=== PATIENT | female | born 1970 | race Caucasian/White ===

== ENCOUNTER 2019-04-02 18:06 | Emergency (ER) | payer MEDICAID, SELFPAY ==
[2019-04-02 18:06] VITALS: BP 154/97; PULSE 83; RESP 16; TEMP 36.3; O2SAT 99; BMI 21.0
--- NOTE | 2019-04-02 18:10 | EKG12_ITS ---
Test Reason : CP Blood Pressure : / mmHG Vent. Rate : 079 BPM Atrial Rate : 079 BPM P-R Int : 110 ms QRS Dur : 080 ms QT Int : 384 ms P-R-T Axes : -33 070 -15 degrees QTc Int : 440 ms Unusual P axis, possible ectopic atrial rhythm Nonspecific T wave abnormality Abnormal ECG Confirmed by KIAH RICHARD ([id number]), news assignment editor NICOLASA AZAR ([id number]) on 04/03/2019 2:32:20 PM Referred By: GERI Confirmed By:KIAH RICHARD
--- NOTE | 2019-04-02 18:15 | RAD_ITS ---
STUDY: X-RAY CHEST REASON FOR EXAM: Female, 48 years old. Chest pain TECHNIQUE: Single frontal view of the chest. COMPARISON: None. FINDINGS: The lungs are clear and expanded. There is no demonstrated pleural abnormality. Normal size heart. Normal mediastinum and eldon. Normal visualized pulmonary arteries. Normal visualized aortic arch and descending thoracic aorta. Breast implants. Normal visualized thoracic spine. Normal visualized ribs, clavicles, and shoulders. There is no demonstrated abnormality of the visualized soft tissue structures of the upper abdomen. RAD/Chest 1 View (Portable) IMPRESSION: No acute pulmonary findings. Electronically Signed: Brian Sneed MD at 18:36 EDT Tel , Service support ,
--- NOTE | 2019-04-02 18:24 | NURSING ---
NO OLD EKGS
[2019-04-02 18:38] VITALS: BP 142/86; PULSE 80; RESP 23; O2SAT 100
[2019-04-02 18:47] LABS: Absolute Lymphocyte Count 1.87 X10^3/uL (0.83-4.51); Absolute Neutrophil Count 4.5 X10^3/uL (2.0-7.7); Basophil# 0.07 X10^3/uL; Eosinophil# 0.31 X10^3/uL; Eosinophils% 4.2 % (0-5); Hemoglobin 12.8 g/dL (12.0-15.0); Lymphocyte # 1.87 X10^3/ul (4.0); Lymphocyte % 25.4 % (19-41); Mean Corp Hgb Conc 33.7 g/dL (32-36); Mean Corpuscular Hgb 29.6 pg (27.0-32.0); Mean Platelet Vol. 10.3 fl (6.2-12.0); Monocyte# 0.64 X10^3/uL; Monocyte% 8.7 % (0-10); NRBC Flagged by Analyzer 0 % (0-5); Neutrophil # 4.45 X10^3/uL (2.7-7.7); Neutrophil % 60.4 % (47-70); Platelet Count 223 K/mm3 (150-450); RBC Distribution Width CV 12.1 % (11.6-14.6); RBC Distribution Width SD 39.2 fl (35.1-43.9); Red Blood Count 4.32 M/mm3 (4.2-5.4); White Blood Count 7.4 K/mm3 (4.4-11.0)
[2019-04-02 19:03] VITALS: RESP 17
[2019-04-02 19:04] LABS: Anion Gap 7 (5-15); BUN 13 mg/dL (7-18); BUN/Creat Ratio 17.7 RATIO (10-20); Chloride 107 mmol/L (98-107); Creatinine, Serum 0.73 mg/dL (0.55-1.02); EST Glomerular Filtration Rate 90 mL/min (>60); Est Glom Filt Rate - Afr Amer 108 mL/min (>60); Estimated Creatinine Clearance 74.54 ml/min; Glucose 93 mg/dL (74-106); Potassium 3.2 mmol/L (3.5-5.1); Sodium Level 139 mmol/L (136-145)
[2019-04-02 19:45] LABS: D-Dimer Quantitative (DVT/PE) 0.46 FEU/ug/m (0.27-0.49)
[2019-04-02 20:02] VITALS: BP 123/81; PULSE 71; RESP 15; O2SAT 99
--- NOTE | 2019-04-02 20:30 | ED.DCSUM_ITS ---
- ER Visit Summary Date of Service: 04/02/19 Chief Complaint: Chest pain History of Present Illness: The patient is a 48 F who presents with chest pain that has been intermittent over the last 4 days. Patient states the pain is gradually gotten worse. Patient describes the pain as dull but sharp at times. Patient states the pain is over the left chest. Patient states nothing makes it better or worse. Patient denies any nausea or vomiting. Patient denies any diaphoresis. Patient denies any shortness of breath, cough, or fevers. Patient denies any lightheadedness or palpitations. Patient's only cardiac risk factor is family history of coronary artery disease at a young age. Patient does admit to recent travel to [place]. Physical Examination: Vital signs are stable. Patient is afebrile. Patient is in no acute distress. Oral mucosa is pink and moist. Neck is supple. Trachea is midline. There is no JVD noted. Heart was regular rate and rhythm. Lungs are clear and equal bilaterally. There is no tenderness with palpation over the chest wall. Abdomen is soft. Bowel sounds are normal. There is no tenderness. Cranial nerves II through XII are intact. There are no focal motor or sensory deficits noted. Test Results: EKG showed normal sinus rhythm with a rate of 79. Nonspecific ST- T wave changes but no acute abnormality. Portable chest x-ray does not show any acute cardiopulmonary process. CBC and basic metabolic profile were essentially within normal limits. Troponin was normal. D-dimer was normal. Emergency Department Course and Treatment: Patient was feeling better on reevaluation. Patient was advised that she is at low risk for acute cardiac event. Patient has a HEART score of 3. Patient was instructed to follow-up with her primary care physician in 3 to 5 days. Patient understood and was agreeable with the plan. All questions were answered. Disposition: Discharge home Impression: Chest pain of uncertain etiology This note was generated with [employer] dictation software. It may contain incorrect words, spelling, and punctuation that were not noted in review of the chart prior to signing ED Disposition - Plan for ED Patient: Disposition: Home or Assisted Living Diagnosis: Chest pain of uncertain etiology Instructions: CHEST PAIN, Uncertain Cause Referrals: Dell Pickard DO [Primary Care Provider] - 3-5 Days
[2019-04-02 20:36] VITALS: BP 130/79; PULSE 72; RESP 14; O2SAT 98
== END 2019-04-02 20:40 | disposition home or self-care (01) ==
PROVIDERS: Emergency Provider Emergency Medicine; Family Provider Student in an Organized Health Care Education/Training Program; PCP Student in an Organized Health Care Education/Training Program
DX: R07.9 Chest pain, unspecified (principal); Z82.49 Family history of ischemic heart disease and other diseases of the circulatory system
CPT/HCPCS: 71045; 80048; 84484; 85025; 85379; 93005; 99284; A4216

== ENCOUNTER 2025-06-22 09:29 | Emergency (ER) | payer MEDICAID, SELFPAY ==
[2025-06-22 09:31] VITALS: PULSE 98; RESP 18; TEMP 36.4; O2SAT 100; BMI 20.1
--- NOTE | 2025-06-22 09:59 | EX.ED.DYSGE1 ---
HPI History of Present Illness Chief Complaint: Palpitations Detail of Chief Complaint: Palpitations and fast heart rate Informant: patient Onset/Context/Timing Onset: Today and Hours Context: Sudden Onset Timing: Intermittent and Lasts (Approximately 45 minutes) Quality: Fast heart rate and palpitations Location: Chest Current Severity: Gone Maximum Severity: Moderate Worsened by: Nothing Relieved by: Nothing Associated Symptoms Associated Symptoms: Tremors Narrative Narrative: Patient is a pleasant 55-year-old woman who presents because of palpitations fast heart rate. She went to urgent care. Urgent care recommended she come to the emergency department for evaluation. Patient has no known cardiac disease. She has no known pulmonary disease. She denies history of VTE and has no risk factors for VTE. She denies leg pain, swelling discoloration. She denies fever, chills night sweats. She denies weight gain or weight loss. She denies headache, visual, ocular auditory symptoms. She denied any chest pressure, tightness or heaviness when she had the palpitations. She states she checked her pulse and it was rapid. She did not have shortness of breath, diaphoresis, nausea or lightheadedness when her heart was fast and palpating. She does drink caffeinated beverages. She had no coffee this morning. She has never had this before. She denies abdominal pain, history of black or maroon-colored stool. She denies heat or cold intolerance. She has had tremors. There is no known history of thyroid disease. Review of prior record indicates she has not had her TSH assessed in the past. Prior similar symptoms: No Recent Illness/Hospitalization: No [facility] Medical History Trigeminal neuralgia Home Medications ?Medication ?Instructions ?Recorded ?Last Taken ?Type baclofen 10 mg tablet 10 mg PO Q8H PRN pain 06/22/25 06/19/25 History estradiol 0.025 mg/24 hr 1 patch topical .COMPLEX 06/22/25 06/19/25 History semiweekly transdermal patch oxcarbazepine 150 mg tablet 450 mg PO BID 06/22/25 06/22/25 History progesterone micronized 100 mg 200 mg PO QHS 06/22/25 06/21/25 History capsule tramadol 50 mg tablet 50 mg PO DAILY PRN pain 06/22/25 06/19/25 History Allergy/AdvReac Type Severity Reaction Status Date / Time No Known Allergies Allergy Verified 04/02/19 18:08 Surgical History History of bunionectomy of right great toe Social History Smoking Status: Never smoker ROS ROS ED Constitutional Constitutional ED: Denies chills, fever(s), subjective, sweats or weight loss Eyes Eyes: Denies blurry vision or change in vision ENT ENT ED: Denies ear pain, rhinorrhea or sore throat Cardiovascular Cardiovascular: Reports palpitations and racing heartbeat; Denies chest pain, orthopnea or paroxysmal nocturnal dyspnea Respiratory/Chest Respiratory/Chest: Denies cough, dyspnea, dyspnea on exertion, orthopnea or paroxysmal nocturnal dyspnea Gastrointestinal Gastrointestinal: Denies abdominal pain, nausea or vomiting Musculoskeletal Musculoskeletal: Denies arthralgias, back pain or myalgias Neurologic Neurologic: Denies headache(s), paresthesias or weakness Psychiatric Psychiatric: Reports anxiety; Denies depression or suicidal ideation Endocrine Endocrinology: Denies cold intolerance or heat intolerance Hematologic/Lymphatic Hematologic/Lymphatic: Reports systems reviewed and no addt'l complaints, except as documented EXAM Physical Exam Const Vital Signs: 06/22/25 09:31 06/22/25 10:30 06/22/25 11:00 Temperature 97.6 F L Temperature Source Oral Pulse Rate 98 70 68 Respiratory Rate 18 16 18 Blood Pressure 120/80 118/70 Blood Pressure Mean 93 86 Pulse Ox 100 99 99 Oxygen Delivery Method Room Air 06/22/25 12:00 06/22/25 13:00 Temperature Temperature Source Pulse Rate 80 90 Respiratory Rate 18 16 Blood Pressure 120/78 116/76 Blood Pressure Mean 92 89 Pulse Ox 98 100 Oxygen Delivery Method Positive well nourished and well developed General Appearance ED: well developed and NAD; Negative for cyanotic, diaphoretic or pallor HEENT Reports moist mucous membranes HEENT Narrative: HEENT exam is grossly unremarkable. Eyes PERRL and EOMs intact bilaterally General Eye ED: Negative for pale conjunctiva or scleral icterus Neck no lymphadenopathy, supple and no JVD Resp normal respiratory effort and clear to auscultation bilaterally Cardio regular rate, regular rhythm, S1 normal heart sound, S2 normal heart sound and no murmurs GI normal to inspection, nondistended, normoactive bowel sounds, non-tender, non-distended and no masses; Negative for hepatosplenomegaly Extremity normal to inspection Neuro oriented x3, CN's II-XII intact bilaterally and no sensory deficits noted Neuro Narrative: Deep tendon reflexes are 3-4+ upper and lower extremity and symmetric. There is no clonus at the ankles. Sensorium / Orientation: alert Psych Psych Narrative: Patient reports she is anxious. She does not appear anxious. Skin no rashes or lesions noted, no wounds and skin turgor normal General Skin Exam: Negative for jaundice or pallor MDM MDM MDM Narrative Medical decision making narrative: Will obtain EKG to see if there is any evidence for preexcitation syndrome i.e. WPW, [place] syndrome etc. History is not consistent with cardiac ischemia. Also need to consider thyroid disease. Since patient not had any caffeinated beverages today doubt that to be the cause. Clinically she does not appear anemic. CBC was obtained to assess white count. Basic metabolic panel to assess electrolytes. Because she has had a cough for 7 weeks chest x-ray was obtained. Lab Data Attestation: I reviewed the patient's lab results. Lab results narrative: White count elevated. This is nonspecific. H&H and indices are normal. Electrolyte panel is unremarkable. Glucose is 101 with normal CO2 and gap. TSH was normal. 1st and 2nd troponin were both less than 6. Labs: Laboratory Results - last 24 hr 06/22/25 06/22/25 06/22/25 09:57 10:00 12:11 WBC 14.6 H RBC 4.52 Hgb 13.4 Hct 38.9 MCV 86.1 MCH 29.6 MCHC 34.4 RDW Std Deviation 38.6 RDW Coeff of Kevin 12.3 Plt Count 288 MPV 9.2 Immature Gran % (Auto) 0.300 Neut % (Auto) 89.1 H Lymph % (Auto) 4.2 L Dent % (Auto) 5.5 Eos % (Auto) 0.5 Baso % (Auto) 0.4 Absolute Neuts (auto) 13.0 H Absolute Lymphs (auto) 0.61 L Nucleated RBC % 0 Sodium 132 L Potassium 3.9 Chloride 97 L Carbon Dioxide 23.8 Anion Gap 12 BUN 10 Creatinine 0.62 L Estim Creat Clear Calc 80.76 Est GFR (MDRD) Non-Af 105 BUN/Creatinine Ratio 15.4 Glucose 101 H Calcium 9.4 Troponin T High Sens < 6 Troponin T Hi Sens 2 Hr < 6 TSH 0.790 Radiography Chest X-Ray - ED: 2 View and Read by ED Physician (. Silhouette and size normal. Hilum is negative. Lung parenchyma is unremarkable. Osseous fractures with no acute process. Patient does have implants bilaterally.) Diagnostic Testing: Clinical Impression(s) from Imaging Studies Chest X-Ray 06/22/25 10:15 IMPRESSION: Negative chest Reading Location: [facility] EKG Initial EKG: Attestation: I personally reviewed and interpreted this EKG as follows: Interpretation: Sinus Rhythm (Rate is 94. There is evidence of atrial enlargement. There is some nonspecific changes noted inferiorly. If there is no old EKG will add troponin. NM interval is 132 ms. QRS duration 72 ms. QT duration 342 ms. Campbell is normal.) Treatment and Re-Evaluation :: Patient was informed of her results. Plans to follow-up with her doctor since this is never happened before and the rhythm/cause is unknown. Discharge Plan Triage Chief Complaint: Palpitations ED Provider: Geoff Landaverde Dx/Rx/DC Orders Clinical Impression: Palpitations, Rapid resting heart rate Instructions: ED Heart Palpitations Prescriptions: No Action oxcarbazepine 150 mg tablet 450 mg PO BID tramadol 50 mg tablet 50 mg PO DAILY PRN (Reason: pain) progesterone micronized 100 mg capsule 200 mg PO QHS estradiol 0.025 mg/24 hr patch semiweekly 1 patch topical .COMPLEX Rx Instructions: 1 patch topically TWICE WEEKLY; baclofen 10 mg tablet 10 mg PO Q8H PRN (Reason: pain) Primary Care Provider: Dell Pickard Referrals: Dell Pickard DO [Primary Care Provider, Medical] - 1 Week Print Language: Bruneian Disposition Disposition: Home, Self Care
--- OUTSIDE RECORDS SUMMARY | 2025-06-22 10:13 | XMS RPT_ITS | CCD ---
Author Organization [facility] Care Team Providers Care Packing Machine Pilot Can Router Name Role Phone DELL PICKARD DO Primary Care Physician Dell Pickard DO Primary Care Provider Dell Pickard DO Primary Care Provider Arevalo BIOMETRICS SPECIALIST.AUTHORIZATION REPMarcela Unavailable Ainsley BIOMETRICS SPECIALIST.AUTHORIZATION REPAi Unavailable Victor Hugo BIOMETRICS SPECIALIST.Gissell BOLANOS Unavailable GISSELL FONTENOT Attending Unavailable PICKARD, DELL L Primary Care Unavailable PICKARD, DELL L Primary Care Unavailable PICKARD, DELL L Referring Unavailable TAO, MERCEDES P Attending Unavailable TAO, MERCEDES P Referring Unavailable PICKARD, DELL L Primary Care Unavailable PICKARD, DELL L Referring Unavailable PICKARD, DELL L Primary Care Unavailable TAO, MERCEDES P Attending Unavailable TAO, MERCEDES P Referring Unavailable PICKARD, DELL L Primary Care Unavailable TAO, MERCEDES P Attending Unavailable TAO, MERCEDES P Referring Unavailable PICKARD, DELL L Primary Care Unavailable PICKARD, DELL L Primary Care Unavailable TAO, MERCEDES P Referring Unavailable TAO, MERCEDES P Attending Unavailable PICKARD, DELL L Primary Care Unavailable TONY FISH Referring Unavailable KELLY FONTENOTANDA VARSHA Referring Unavailable VANNA, STEPHON P Attending Unavailable ZOIE, DELL L Primary Care Unavailable GISSELL FONTENOT Referring Unavailable PICKARD, DELL L Primary Care Unavailable DELL PICKARD DO Primary Care Physician DELL PICKARD DO Primary Care Unavailable PROVIDER, UNKNOWN Attending Unavailable Allergies Allergy Classification Reported Allergen(s) Allergy Type Date of Onset Reaction(s) Facility (20 sources) Cat; Translations: [CATS] Propensity to adverse reactions 06-14-2010 Intolerance [facility] Work Phone: (20 sources) Seasonal allergy; Translations: [SEASONAL ALLERGIES] Allergy to substance 06-14-2010 Intolerance [facility] Work Phone: (20 sources) carBAMazepine; Translations: [CARBAMAZEPINE] Drug Allergy 01-12-2024 Hives [facility] Medications Current Medications Medication Drug Class(es) Dates Sig (Normalized) Sig (Original) ascorbic acid 250 mg oral tablet (20 sources) Vitamin C Start: 04-29-2021 take 1 tablet by mouth once daily ascorbic acid, vitamin C, (VITAMIN C) 250 mg tablet Take 1 tablet by mouth once daily. 04/29/2021 Active Comment on above: Take 1 tablet by [facility] once daily. biotin 10 mg oral capsule (20 sources) Start: 04-29-2021 take 1 capsule by mouth once daily Biotin 10,000 mcg cap Take 1 capsule by mouth once daily. 04/29/2021 Active Comment on above: Take 1 capsule by [facility] once daily. cholecalciferol 0.05 mg oral capsule (20 sources) Vitamin D Start: 04-29-2021 take 1 capsule by mouth once daily Cholecalciferol, Vitamin D3, (VITAMIN D-3) 50 mcg (2,000 unit) cap Take 1 capsule by mouth once daily. 04/29/2021 Active Comment on above: Take 1 capsule by [facility] once daily. enteric contrast (will be provided with radiology test) (1 source) Start: 01-08-2025 End: 01-09-2025 enteric contrast (will be provided with radiology test) For CT ABD/PEL W IVCON Routine order Administer, As Directed One Time Only, via Oral, Rectal, both Oral and Rectal, Enteric Tube, Stoma or Indwelling Catheter, Enteric Contrast as designated per enteric contrast guidelines 1 each 01/08/2025 01/09/2025 Active 84 hr estradiol 0.09039 mg/hr transdermal system (2 sources) Estrogen Start: 03-24-2025 estradiol (MINIVELLE, VIVELLE-DOT) 0.025 mg/24 hr patch apply ONE PATCH topically twice WEEKLY 03/24/2025 Active Start: 03-24-2025 estradiol 0.02 5 mg/24 hours twice weekly transdermal film, extended release 0.025 mg Dose = 1 patch(es), Topical, 2x/Wk, # 24 patch(es), 0 Refill(s), Pharmacy: [facility], [facility] woman exam Trigeminal neuralgia, 160.2, cm, 03/24/25 9:05:00 EDT, Height, kg, 03/24/25 9:05:00 EDT, Dosing Weight Start Date: 03/24/25 Status: Ordered Medication Dispense Status: Completed Quantity: 24.0 Unit: patch(es) Total Allowed Fills: 1 Fills Dispensed: 0 Indications: Trigeminal neuralgia; Encounter for gynecological examination (general) (routine) without abnormal findings; 24 hr ferrous sulfate 142 mg extended release oral tablet (20 sources) Start: 03-21-2023 take 1 tablet by mouth twice daily at mealtime Ferrous Sulfate (SLOW FE) 142 mg (45 mg iron) TbER Indications: Iron deficiency anemia, unspecified iron deficiency anemia type Take 1 tablet by mouth twice daily. With food, iron supplement 60 tablet 11 03/21/2023 Active Comment on above: Take 1 tablet by mouth twice daily. With food, iron supplement Her[facility] tab (20 sources) Start: 04-29-2021 End: 12-23-2022 [facility] tab Bone health supplement daily 04/29/2021 12/23/2022 Discontinued Start: 04-29-2021 [facility] t ab Magnesium 50 mg daily 04/29/2021 Active Start: 04-29-2021 Her[facility] Drugs t ab Magnesium 50 mg daily 0 04/29/2021 Active Comment on above: Magnesium 50 mg mary y iv contrast (will be provided with radiology test) (1 source) Start: 01-08-2025 End: 01-09-2025 iv contrast (will be provided with radiology test) CT ABD/PEL -Inject, intravenously, once for 1 dose.No IV access, insert saline lock prior to the beginning of sedation, infusion, injection of imaging exam. Discontinue saline lock post exam. If Pt. has a central line or IVAD, may access for administration according to line specific nursing protocol. Once exam is complete flush line and de-access according to line specific nursing protocol in the CT contrast administration guidelines link. 1 each 01/08/2025 01/09/2025 Active LORazepam 0.5 mg oral tablet (20 sources) Benzodiazepine Start: 10-27-2021 LORazepam (ATIVAN) 0.5 mg Take 0.25 mg by mouth. 10/27/2021 Active Start: 10-27-2021 LORazepam 0.5 mg oral tablet Dose : 0.25 mg = 0.5 tab(s), Oral, BID, 0 Refill(s) Start Date: 10/27/21 Status: Ordered Comment on above: Take 0.25 mg by mout h. Magnesium (1 source) Start: 2 End: 2 Magnesium 250 mg tablet Dose : 500 mg = 2 tab(s), Oral, qDay, # 20 tab(s), 0 Refill(s) Start Date: 10/27/21 Stop Date: 11/05/21 Status: Ordered OXcarbazepine 300 mg oral tablet (20 sources) Anti-epileptic Agent Start: 5 take 1 tablet by mouth twice daily OXcarbazepine 300 mg oral tablet take 1 tablet by mouth twice a day Start Date: 03/24/25 Status: Ordered Medication Dispense Status: Completed Total Allowed Fills: 1 Fills Dispensed: 0 Start: 01-08-2025 End: 03-18-2026 take 3 tablets by mouth twice daily OXcarbazepine (TRILEPTAL) 150 mg tablet Take 3 tablets by mouth two times a day. 180 tablet 03/18/2025 03/18/2026 Active Start: 12-05-2024 End: 12-28-2025 take 1 tablet by mouth twice daily OXcarbazepine (TRILEPTAL) 150 mg tablet Take 1 tablet by mouth two times a day. 60 tablet 11 12/28/2024 12/28/2025 Active Start: 11-01-2022 End: 01-03-2023 take 1 tablet by mouth twice daily OXcarbazepine (TRILEPTAL) 300 mg tablet Indications: Trigeminal neuralgia , Trigeminal neuralgia of right side of face Take 1 tablet by mouth twice daily. 60 tablet 2 11/01/2022 01/03/2023 Discontinued (Course of therapy completed) Comment on above: Take 1 tablet by ese th twice daily. perflutren lipid microspheres 1.3 mL in NaCl (PF) 0.9% 10 mL injection (DEFINITY) (20 sources) Start: 03-21-20 End: 06-19-20 perflutren lipid microspheres 1.3 mL in NaCl (PF) 0.9% 10 mL injection (DEFINITY) progesterone 100 mg oral capsule (3 sources) Progesterone Start: 03-24-20 take 2 capsules by mouth once daily at bedtime progesterone micronized (PROMETRIUM) 100 mg capsule Take 200 mg by mouth daily at bedtime. 03/24/2025 Active Start: 03-24-2025 End: 06-09-2025 progesterone 100 mg oral cap marisol Dose : 200 mg = 2 cap(s), Oral, qHS, # 180 cap(s), 3 Refill(s), 06/09/25 9:00:00 AM EDT, Pharmacy: [facility] [place], 160.2, cm, 03/24/25 9:05:00 EDT, Height, kg, 03/24/25 9:05:00 EDT, Dosing Weight Start Date: 04/25/25 Stop Date: 06/09/25 Status: Ordered Medication Dispense Status: Completed Quantity: 180.0 Unit: cap(s) Total Allowed Fills: 4 Fills Dispensed: 0 125 ml sodium chloride 9 mg/ml prefilled syringe (20 sources) Start: 03-21-2023 End: 06-19-2024 sodium chloride 0.9 % (flush) 10 mL (BD POSIFLUSH) traMADol hydrochloride 50 mg oral tablet (20 sources) Opioid Agonist Start: 03-24-2025 take 1 tablet by mouth every six hours for pain traMADol 50 mg oral tablet take 1 tablet by mouth every 6 hours if needed for pain Start Date: 03/24/25 Status: Ordered Medication Dispense Status: Completed Total Allowed Fills: 1 Fills Dispensed: 0 Start: 03-18-2025 End: 04-17-2025 take 1 tablet by mouth once daily as needed for pain traMADol (ULTRAM) 50 mg tablet Indications: Trigeminal neuralgia of right side of face , Chronic pain syndrome Take 1 tablet by mouth once daily as needed for pain for up to 30 days. 30 tablet 03/18/2025 04/17/2025 Active Start: 01-13-2025 End: 03-01-2025 take 1 tablet by mouth once daily as needed for pain traMADol (ULTRAM) 50 mg tablet Indications: Trigeminal neuralgia of right side of face , Chronic pain syndrome Take 1 tablet by mouth once daily as needed for pain for up to 30 days. 30 tablet 01/30/2025 03/01/2025 Active Start: 11-14-2024 End: 01-12-2025 take 1 tablet by mouth every eight hours as needed for pain traMADol (ULTRAM) 50 mg tablet Indications: Trigeminal neuralgia , Trigeminal neuralgia of right side of face Take 1 tablet by mouth every 8 hours as needed for pain for up to 33 days. 25 tablet 12/10/2024 01/12/2025 Active Start: 10-10-2024 End: 11-09-2024 take 1 tablet by mouth every eight hours as needed for pain traMADol (ULTRAM) 50 mg tablet Indications: Trigeminal neuralgia , Trigeminal neuralgia of right side of face Take 1 tablet by mouth every 8 hours as needed for pain (For severe pain rescue) for up to 30 days. 20 tablet 1 10/10/2024 11/09/2024 Active Start: 05-13-2024 End: 06-12-2024 take 1 tablet by mouth every eight hours as needed for pain traMADol (ULTRAM) 50 mg tablet Indications: Trigeminal neuralgia , Trigeminal neuralgia of right side of face Take 1 tablet by mouth every 8 hours as needed for pain (For severe pain rescue) for up to 30 days. 20 tablet 1 05/13/2024 06/12/2024 Active Start: 11-29-2023 End: 02-11-2024 take 1 tablet by mouth every eight hours as needed for pain traMADol (ULTRAM) 50 mg tablet Indications: Trigeminal neuralgia of right side of face Take 1 tablet by mouth every 8 hours as needed for pain for up to 30 days. 30 tablet 1 01/12/2024 02/11/2024 Active Start: 08-02-2023 take 1 tablet by ese th every eight hours as needed for pain traMADol (ULTRAM) 50 mg tablet Indications: Trigeminal neuralgia of right side of face Take 1 tablet by mouth every 8 hours as needed for pain. 30 tablet 1 08/02/2023 Active Start: 12-22-2022 End: 08-01-2023 take 1 tablet by mouth every six hours as needed for pain traMADol (ULTRAM) 50 mg tablet Indications: Trigeminal neuralgia of right side of face Take 1 tablet by mouth every 6 hours as needed for pain. 30 tablet 1 06/27/2023 08/01/2023 Discontinued Comment on above: Take 1 tablet by ese th every 6 hours as needed for pain. Take 1 tablet by ese th every 8 hours as needed for pain. Take 1 tablet by ese th every 8 hours as needed for pain for up to 30 days. vitamin b12 1 mg oral tablet (20 sources) Vitamin B12 Start: 03-21-2023 take 2 tablets by mouth once daily cyanocobalamin (VITAMIN B-12) 1,000 mcg tab Indications: Vitamin B12 deficiency Take 2 tablets by mouth once daily. 60 tablet 11 03/21/2023 Active Comment on above: Take 2 tablets by mo [facility] once daily. Vitamin D with Minerals oral tablet (3 sources) Start: 10-27-2021 take 1 tablet by mouth once daily Vitamin D with Minerals oral tablet Dose = 1 tab(s), Oral, qDay, # 90 tab(s), 0 Refill(s) Start Date: 10/27/21 Status: Ordered Medication Dispense Status: Completed Quantity: 90.0 Unit: tab(s) Total Allowed Fills: 1 Fills Dispensed: 0 Start: 10-27-2021 take 1 tablet by ese th once daily Vitamin D with Minerals oral tablet Dose = 1 tab(s), Oral, qDay, # 90 tab(s), 0 Refill(s) Start Date: 10/27/21 Status: Ordered zinc gluconate 50 mg oral tablet (3 sources) Start: 10-27-2021 zinc (as gluco izabella) 50 mg oral tablet 0 Refill(s) Start Date: 10/27/21 Status: Ordered Medication Dispense Status: Completed Total Allowed Fills: 1 Fills Dispensed: 0 zinc sulfate 110 mg oral tablet (20 sources) Start: 04-29-2021 Zinc Sulfate 2 5 mg zinc (110 mg) tab Patient takes 22.5 mg daily 04/29/2021 Active Comment on above: Patient takes 22.5 m g daily Completed/Discontinued Medications Medication Drug Class(es) Dates Sig (Normalized) Sig (Original) baclofen 10 mg oral tablet (20 sources) gamma-Aminobutyri c Acid-ergic Agonist Start: 03-24-2025 take 1 tablet by mouth three times daily for pain BACLOFEN 10 MG TABLET BACLOFEN 10 MG TABLET, take 1 tablet by mouth three times a day if needed for FACIAL PAIN Start Date: 03/24/25 Status: Ordered Medication Dispense Status: Completed Total Allowed Fills: 1 Fills Dispensed: 0 Start: 12-22-2022 End: 10-24-2024 take 1 tablet by mouth every eight hours as needed baclofen 10 mg tablet Take 1 tablet by mouth three times a day as needed (facial pain). 60 tablet 11 10/24/2024 Active Comment on above: Take 1 tablet by [facility] three times daily as needed (facial pain). onabotulinumtoxina 100 unt injection (10 sources) Acetylcholine Release Inhibitor Start: 04-17-2025 End: 04-17-2025 onabotulinum toxin type A 45 Units injection (BOTOX) Start: 04-17-2025 End: 04-17-2025 45 Units, INTRADERMAL, ONCE, 1 dose, On Mon04/17/25 at 1300, This record documents the total dose provided to patient. See progress note for specific locations and amounts administered. REFRIGERATE - Pharmaceutical Waste: Lab Pack - Start: 11-14-2024 End: 11-14-2024 onabotulinum toxin type A 10 0 Units injection (BOTOX) Start: 11-14-2024 End: 11-14-2024 inject 1 dose by intramuscular injection once 100 Units, INTRAMUSCULAR, ONCE, 1 dose, On Mon11/14/24 at 1900, This record documents the total dose provided to patient. See progress note for specific locations and amounts administered. REFRIGERATE - Pharmaceutical Waste: Lab Pack - Start: 07-30-2024 End: 07-30-2024 onabotulinum toxin type A 10 0 Units injection (BOTOX) Start: 07-30-2024 End: 07-30-2024 inject 1 dose by intramuscular injection once 100 Units, INTRAMUSCULAR, ONCE, 1 dose, On Mon07/30/24 at 1230, This record documents the total dose provided to patient. See progress note for specific locations and amounts administered. REFRIGERATE - Pharmaceutical Waste: Lab Pack - Start: 04-23-2024 End: 04-23-2024 onabotulinum toxin type A 17 5 Units injection (BOTOX) Start: 04-23-2024 End: 04-23-2024 inject 1 dose by intramuscular injection once 175 Units, INTRAMUSCULAR, ONCE, 1 dose, On Mon04/23/24 at 1330, This record documents the total dose provided to patient. See progress note for specific locations and amounts administered. REFRIGERATE - Pharmaceutical Waste: Lab Pack - Start: 01-12-2024 End: 01-12-2024 onabotulinum toxin type A 60 Units injection (BOTOX) Start: 01-12-2024 End: 01-12-2024 onabotulinum toxin type A 60 Units injection (BOTOX) gabapentin 600 mg oral tablet (20 sources) Anti-epileptic Agent Start: 05-23-2023 End: 07-04-2023 take 1 capsule by mouth every eight hours as needed gabapentin (NEURONTIN) 100 mg capsule Take 1 capsule by mouth three times daily as needed (nerve pain) for up to 30 days. 30 capsule 1 05/23/2023 07/04/2023 Discontinued Start: 12-22-2022 End: 01-08-2025 take 1.5 tablets by mouth three times daily gabapentin (NEURONTIN) 600 mg tablet Take 1.5 tablets by mouth three times a day. 135 tablet 11 12/08/2023 01/08/2025 Discontinued (Changing Therapy/Dosage Form) Start: 07-02-2022 End: 09-20-2022 gabapentin (NEURONTIN) 100 m g capsule Indications: Trigeminal neuralgia of right side of face , Right facial pain Take 1 capsule PO in AM, 1 capsule PO in afternoon and 1-2 capsules PO at bedtime as needed for facial pain Do not start before July 02, 2022. 120 capsule 2 07/02/2022 09/20/2022 Discontinued Start: 10-27-2021 gabapentin 100 mg oral capsule Dose : 100 mg = 1 cap(s), Oral, TID, # 90 cap(s), 0 Refill(s) Start Date: 10/27/21 Status: Ordered Comment on above: Take 1.5 tablets by mouth three times daily. Take 1 capsule by mo ut three times daily as needed (nerve pain) for up to 30 days. Take 1.5 tablets by mouth three times a day. Lactobac 40-Bifido 3-S.thermop (PROBIOTIC) 100 billion cell cap (7 sources) Start: 04-29-2021 End: 07-04-2023 Lactobac 40-Bifido 3-S.thermop (PROBIOTIC) 100 billion cell cap Patient takes 50 billion cell capsule daily 04/29/2021 07/04/2023 Discontinued (Course of therapy completed) Start: 04-29-2021 End: 07-04-2023 Lactobac 40-Bifido 3-S.therm op (PROBIOTIC) 100 billion cell cap Patient takes 50 billion cell capsule daily 0 04/29/2021 07/04/2023 Discontinued (Course of therapy completed) Start: 04-29-2021 Lactobac 40-Bi fido 3-S.thermop (PROBIOTIC) 100 billion cell cap Patient takes 50 billion cell capsule daily 0 04/29/2021 Active Comment on above: Patient takes 50 katia lion cell capsule daily magnesium oxide 250 mg oral tablet (2 sources) Start: 10-27-2021 End: 11-05-2021 Magnesium 250 mg tablet Dose : 500 mg = 2 tab(s), Oral, qDay, # 20 tab(s), 0 Refill(s) Start Date: 10/27/21 Stop Date: 11/05/21 Status: Ordered Medication Dispense Status: Completed Quantity: 20.0 Unit: tab(s) Total Allowed Fills: 1 Fills Dispensed: 0 meloxicam 15 mg oral tablet (1 source) Nonsteroidal Anti-inflammatory Drug Start: 07-28-2022 End: 08-27-2022 take 1 tablet by mouth once daily meloxicam (MOBIC) 15 mg tablet Take 1 tablet by mouth once daily. 30 tablet 1 07/28/2022 08/27/2022 Problems Active Problems Problem Classification Problem Date Documented Date Episodic/Chronic Complication of device; implant or graft (1 source) Pain; Translations: [Pain due to internal orthopedic prosthetic devices, implants and grafts, initial encounter] 07-28-2022 Episodic Disorders of lipid metabolism (20 sources) Mixed hyperlipidemia; Translations: [Mixed hyperlipidemia] Onset: 01-10-2022 01-10-2022 Chronic Heart valve disorders (20 sources) Mitral valve regurgitation; Translations: [Nonrheumatic mitral (valve) insufficiency] Onset: 05-04-2021 05-04-2021 Chronic Menopausal disorders (10 sources) Disorder associated with menstruation AND/OR menopause; Translations: [Unspecified menopausal and perimenopausal disorder] Onset: 01-08-2025 01-08-2025 Chronic Other lower respiratory disease (1 source) Snoring; Translations: [Snoring] 03-27-2024 Episodic Other nervous system disorders (5 sources) Chronic pain syndrome; Translations: [Chronic pain syndrome] 01-13-2025 Chronic Other nervous system disorders (20 sources) Right trigeminal neuralgia; Translations: [Trigeminal neuralgia] Onset: 12-21-2020 Episodic Other nervous system disorders (20 sources) Trigeminal nerve disorder; Translations: [Disorder of trigeminal nerve, unspecified] Onset: 01-12-2024 01-12-2024 Episodic Other upper respiratory disease (20 sources) Allergic rhinitis; Translations: [Allergic rhinitis, unspecified] Onset: 08-08-2012 08-08-2012 Chronic Unclassified (1 source) Botox Injection Onset: 04-17-2025 Past or Other Problems Problem Classification Problem Date Documented Da te Episodic/Chronic Abdominal hernia (15 sources) Hernia of abdominal cavity; Translations: [Unspecified abdominal hernia without obstruction or gangrene] Onset: 01-08-2025 01-08-2025 Episodic Acquired foot deformities (20 sources) Bunion; Translations: [Bunion of right foot] Onset: 12-21-2020 12-21-2020 Episodic Allergic reactions (20 sources) Urticaria; Translations: [Urticaria, unspecified] Onset: 08-08-2012 Resolved: 01-08-2025 08-08-2012 Episodic Deficiency and other anemia (20 sources) Anemia; Translations: [Anemia, unspecified] Onset: 01-10-2022 01-10-2022 Episodic Deficiency and other anemia (20 sources) Iron deficiency anemia; Translations: [Iron deficiency anemia, unspecified] Onset: 09-19-2023 09-19-2023 Episodic Diabetes mellitus without complication (20 sources) Hyperglycemia; Translations: [Hyperglycemia, unspecified] Onset: 09-21-2022 Resolved: 01-08-2025 09-21-2022 Episodic Headache; including migraine (20 sources) Headache; Translations: [Headache] Onset: 06-14-2010 08-23-2021 Episodic Heart valve disorders (20 sources) Heart murmur; Translations: [Cardiac murmur, unspecified] Onset: 06-14-2010 08-23-2021 Episodic Malaise and fatigue (20 sources) Fatigue; Translations: [Other fatigue] Onset: 09-21-2022 09-21-2022 Episodic Nutritional deficiencies (20 sources) Cobalamin deficiency; Translations: [Deficiency of other specified B group vitamins] Onset: 03-21-2023 03-21-2023 Episodic Other bone disease and musculoskeletal deformities (20 sources) Osteopenia; Translations: [Other specified disorders of bone density and structure, other site] Onset: 01-18-2022 01-18-2022 Episodic Other bone disease and musculoskeletal deformities (20 sources) Disorder of skeletal system; Translations: [Disorder of bone, unspecified] Onset: 09-19-2023 09-19-2023 Episodic Other bone disease and musculoskeletal deformities (1 source) Other specified disorders of bone density and structure, other site; Translations: [Osteopenia of spine] Onset: 01-18-2022 Episodic Other nervous system disorders (15 sources) Trigeminal neuralgia; Translations: [Trigeminal neuralgia] Onset: 01-08-2025 05-13-2024 Episodic Other nervous system disorders (2 sources) Trigeminal neuralgia; Translations: [Trigeminal neuralgia] Onset: 01-10-2022 Episodic Other screening for suspected conditions (not mental disorders or infectious disease) (3 sources) Patient encounter status; Translations: [Encounter for screening mammogram for malignant neoplasm of breast] Onset: 12-19-2024 10-18-2023 Episodic Unclassified (1 source) Patient encounter status 10-05-2024 Varicose veins of lower extremity (20 sources) Venous varices; Translations: [Varicose veins of unspecified lower extremity with pain] Onset: 03-21-2023 03-21-2023 Episodic Results Test Name Value Interpretation Reference Range Facility [facility] 04-17-2025 CNOV Office Visit (SDFB) CECILIA PATEL ([id number]) 1970 F Date Time Provider Department 04/17/25 11:00 AM MERCEDES TAO [facility] During your visit today, we recorded the following information about you: Pulse Blood pressure Weight 67/minute 111/75 49.4 kg Mercedes Tao, DO 04/17/2025 12:56 PM Signed [facility] - B[facility] Follow-up Visit ASSESSMENT: 54 yof with history significant for rare migraine without aura (1/year), with R V2-3 trigeminal neuralgia. Neurosurgery recommended MVD given the classical nature of the pain and visualized arterial loop touching the trigeminal nerve on imaging, so this is an option if things are not improving. We are using Botox for her R trigeminal nerve disorder, which she has been responding to very well. PLAN: (Please see typed patient instructions for detailed instructions) ---> Acute Treatment: -Tramadol vs. Baclofen prn breakthrough pain until preventive therapy starts helping. ---> Preventive Treatment: -OXC 450 mg bid. Labs normal recently. -Botox today in much more limited pattern and will do symmetrically (45 units total instead of 100 units as we did last time, although that worked very well). ---> Follow-up: 4 months for Botox. Last Visit: 11/14/24 Interval Headache Hx: Did well after last treatments, which was almost 6 months ago. Has had a bit more pain intermittently in more limited areas lateral to R nose and anterior to R ear. Interested in doing a more limited pattern to lessen potential for asymmetry and since pain has not been bad. HEADACHE SCORES: 09/05/2023 Headache Questions Days per month with mild/moderate face pain: 15 Days per month with severe face pain: 10 PRN medication usage in the last month: 30 09/05/2023 GE - 2/7 SCORES GE-2 Score 2 09/05/2023 PHQ-9 Score 1 Data saved with a previous flowsheet row definition BP 111/75 Pulse 67 Wt 49.4 kg (109 lb) LMP 08/08/2022 (Approximate) BMI 19.62 kg/m? Patient name: Cecilia Patel : 1970 ALLERGIES Allergen Reactions Carbamazepine Hives Cats Intolerance Seasonal Allergies Intolerance UNIVERSAL PROTOCOL / SAFETY CHECKLIST Procedure to be Performed: Botox Sign In: A Moment of CARE was completed. Personnel directly involved with the procedure wore the appropriate PPE (Personal Protective Equipment). Patient/Surrogate Stated/Verified: PATIENT VERIFIED(optional for EMERGENT procedures): Patient name, Date of , Relevant allergies, and The intended procedure Time Out Communication: Intended patient and procedure match the source documents. Consent documented and matches the intended procedure. Sign Out: SIGN OUT (optional for EMERGENT procedures): No specimen collected. Mercedes Tao DO UNIVERSAL PROTOCOL / SAFETY CHECKLIST Procedure: Botox for R V2>3 trigeminal neuralgia Informed Consent Consent Obtained: Written [place] Protocol A moment to CARE was completed SIGN IN Personnel directly involved with the procedure wore the appropriate PPE Special Equipment: N/A Patient/Surrogate Stated/Verified: Patient name, Date of , Relevant allergies and Intended procedure TIME OUT No relevant labs, photos, and/or imaging studies were applicable for review. Consent documented and matches the intended procedure No correct side/site applicable for marking and visibility. No medications required for procedure. No fire risk assessment and interventions applicable. No implant(s) inserted. SIGN OUT No specimen collected. Written Consent Obtained: Written I have reviewed the Lit Status Assessment responses and discussed these with the patient: yes The risks, benefits and anticipated outcomes of the procedure, the risks and benefits of the alternatives to the procedure, and the roles and tasks of the personnel to be involved, were discussed with the patient, and the patient consents to the procedure and agrees to proceed. Informed consent signed. UNIVERSAL PROTOCOL / SAFETY CHECKLIST Procedure to be performed: BOTOX for trigeminal neuralgia in the R V2>3 distribution (injections performed bilateral for muscle symmetry) Sign in Communication: completed Time Out: Team Confirms the Correct Patient, Correct Procedure, Correct Site and Site Marking, Correct Position (if applicable). Time: 1115 Affirmation of Time Out: completed Sign Out Discussion: completed 100 units of Botox A (lot # [id number] expiration date 06/2027) was diluted in 2 cc normal saline. Botox Sites: Units used: 45 Units wasted: 55 Mercedes Tao DO [facility] [place] Department of [facility] [address] [place] [address] Phone: [phone] (more content not included)... Normal [facility] Basic metabolic 2000 panelon 03-13-2025 Anion gap [Moles/Vol] 11 mmol/L Normal 8-[address] [facility] Comment on above: Order Comment: Speci men Type: BLOOD SPECIMENOrdering Facility: [facility] Address: [address] [place] [address] Performed By: #### 2 4321-2 ####[facility] GARRISON MILLWNCLIA [id number] [place] [address] [place] Calcium [Mass/Vol] 9.7 mg/dL Normal 8.5-10.2 [facility] Comment on above: Order Comment: Speci men Type: BLOOD SPECIMENOrdering Facility: [facility] Address: [address] [place] [address] Performed By: #### 2 4321-2 ####[facility] MILLWNCLIA [id number] [place] [address] [place] Chloride [Moles/Vol] 100 mmol/L Normal 98-107 [facility] Comment on above: Order Comment: Speci men Type: BLOOD SPECIMENOrdering Facility: [facility] Address: [address] [place] [address] Performed By: #### 2 4321-2 ####[facility] GARRISON MILLTOWNCLIA [id number] [place] [address] [place] CO2 [Moles/Vol] 25 mmol/L Normal 22-30 [facility] Comment on above: Order Comment: Speci men Type: BLOOD SPECIMENOrdering Facility: [facility] Address: [address] [place], [place] [id number] Performed By: #### 2 4321-2 ####[facility] MILLTOWNCLIA [id number] [place] [address] [place] Creatinine [Mass/Vol] 0.62 mg/dL Low 0.73-1.[address] [facility] Comment on above: Order Comment: Shanae ortiz Type: BLOOD SPECIMENOrdering Facility: [facility] Address: [address] [place] [address] Performed By: #### 2 4321-2 ####[facility] [id number] [place] [address] [place] eGFRcr SerPlBld CKD-EPI 2020 106 mL/min/1.73m??? Normal >=60 [facility] Comment on above: Order Comment: Shanae ortiz Type: BLOOD SPECIMENOrdering Facility: [facility] Address: [address] [place] [address] Result Comment: Nancy mated Glomerular Filtration Rate (eGFR) is calculated using the 2020 CKD-EPI creatinine equation. This equation utilizes serum creatinine, sex, and age as parameters. The creatinine assay has traceable calibration to isotope dilution-mass spectrometry. Refer to KDIGO guidelines for clinical interpretation. In patients with unstable renal function, e.g. those with acute kidney injury, the eGFR may not accurately reflect actual GFR. Performed By: #### 2 4321-2 ####[facility] [id number] [place] [address] [place] Glucose [Mass/Vol] 96 mg/dL Normal 74-99 [facility] Comment on above: Order Comment: Shanae ortiz Type: BLOOD SPECIMENOrdering Facility: [facility] Address: [address] [place] [address] Result Comment: The [place] [employer] (ADA) provides guidance for cutoff values for fasting glucose and random glucose. The ADA defines fasting as no caloric intake for at least 8 hours. Fasting plasma glucose results between 100 to 125 mg/dL indicate increased risk for diabetes (prediabetes). Fasting plasma glucose results greater than or equal to 126 mg/dL meet the criteria for diagnosis of diabetes. In the absence of unequivocal hyperglycemia, results should be confirmed by repeat testing. In a patient with classic symptoms of hyperglycemia or hyperglycemic crisis, random plasma glucose results greater than or equal to 200 mg/dL meet the criteria for diagnosis of diabetes. Reference: Standards of Medical Care in Diabetes 2016, [place] [employer]. Diabetes Care. 2016.39(Suppl 1). Performed By: #### 2 4321-2 ####[facility] MEHRDADDarleenNCKRISTIN [id number] [place] [address] [place] Potassium [Moles/Vol] 3.9 mmol/L Normal 3.7-5.[address] [facility] Comment on above: Order Comment: Shanae ortiz Type: BLOOD SPECIMENOrdering Facility: [facility] Address: [address] [place] [address] Performed By: #### 2 4321-2 ####[facility]OCRISTINGifty [id number] [place] [address] [place] Sodium [Moles/Vol] 136 mmol/L Normal 136-144 [facility] Comment on above: Order Comment: Shanae ortiz Type: BLOOD SPECIMENOrdering Facility: [facility] Address: [address] [place] [address] Performed By: #### 2 4321-2 ####[facility] HOSPITALGifty [id number] [place] [address] [place] Urea nitrogen [Mass/Vol] 10 mg/dL Normal 7-21 [facility] Comment on above: Order Comment: Shanae ortiz Type: BLOOD SPECIMENOrdering Facility: [facility] Address: [address] [place], [place] [id number] Performed By: #### 2 4321-2 ####[facility] OHIOLIA [id number] [address] [place] CNOVon 01-27-2025 CNOV Office Visit (GENSWS) CECILIA PATEL ([id number]) 1970 F Date Time Provider Department 01/27/25 2:30 PM STEPHON PRABHAKAR During your visit today, we recorded the following information about you: Temperature Pulse Respiration Blood pressure 98.5 degrees 100/minute 12/minute 120/80 Weight Height Last Period 47.6 kg 1.588 m 08/08/22 Shahrzad MimsARTURO 01/28/2025 1:53 PM Signed REVIEW OF SYSTEMS: General: The patient denies fatigue, denies weight loss, denies weight gain, denies feeling hot, and denies feelings of cold. Eyes: The patient denies glaucoma, denies eye injury/surgery, wears glasses and contacts. Ear/Nose/Throat: The patient denies allergies, denies hayfever, denies ear infections, and denies bloody noses. Cardiovascular: The patient denies chest pain, denies heart disease, denies high blood pressure,denies cardiac stent, denies prior heart attack, denies irregular heart beat, denies high cholesterol, denies poor circulation, denies heart failure, other cardiac issues, denies claudication, denies cold feet, denies peripheral arterial stent. Respiratory: The patient denies tuberculosis, denies pneumonia, denies frequent cough, denies pulmonary embolism, denies shortness of breath, and denies coughing up blood. Gastrointestinal: The patient denies difficulty swallowing, denies acid reflux, denies ulcers, denies vomiting, denies jaundice/hepatitis, denies gallbladder problems, denies black or tarry stools, denies hemorrhoids, denies bleeding from rectum, denies diverticulitis, denies constipation, denies diarrhea, denies loss of stool control, and denies hernias. Kidney/Bladder: The patient denies kidney stones, denies urine infections, and denies bloody urine. Skin: The patient denies a history of skin cancer, denies bleeding/changing moles, and denies a history of skin rash. Neurologic: The patient denies a history of epilepsy/convulsions , denies headaches, denies head/spinal injuries, and denies stroke/TIA, notes Trigeminal neuralgia. Psychiatric: The patient denies psychiatric medications, denies depression, and denies voices, denies substance abuse. Endocrine: The patient denies thyroid disorders, denies diabetes, and denies hormonal problems. Hematologic: The patient denies a history of bruising, denies bleeding, and denies anemia, denies blood clots. Infections: The patient denies a history of measles and mumps, denies rheumatic fever, and denies sexually transmitted diseases. Musculoskeletal: The patient denies back pain/injury, denies back problems, denies sciatica, denies knee/foot trouble, denies arthritis, or denies gout. When was patient's last Mammogram screening? 12/19/2024 Last Colonoscopy: 01/09/2017 ARTURO Sierra Daniel P, MD 01/28/2025 1:53 PM Signed HISTORY AND PHYSICAL Cecilia Pura Patel 1970 REFERRING PHYSICIAN: Gissell Fontenot AP* CHIEF COMPLAINT: Consult HPI: The patient is a 54 year old adult with a complaint of a bulge and discomfort in the right inguinal area. Patient has had a CAT scan of the abdomen pelvis which really did not show this area whatsoever. But when she stands she notices that this bulges out in this area and it right in the right inguinal area close to her Pfannenstiel incision. She has had some minor discomfort in this area. It always reduces when she lies down.. The patient is being seen by me today at the request of Dr. Fontenot for my opinion and advice regarding Hernia Right inguinal hernia (primary encounter diagnosis). PAST MEDICAL HISTORY Diagnosis Date Allergic rhinitis Heart murmur IFG (impaired fasting glucose) 02/2023 Migraine headache only have had 1-2 in her life per pt Osteopenia of spine 12/2021 PONV (postoperative nausea and vomiting) Trigeminal neuralgia of right side of face 10/2015 PAST SURGICAL HISTORY Procedure Laterality Date BREAST AUGMENTATION W/PROSTHETIC IMPLANT 1996 CORRECTION OF BUNION Right LIG/TRNSXJ FLP TUBE ABDL/VAG APPR UNI/BI Tubal ligation PAST SURGICAL HISTORY OF 2005, 2007 x , [place] (first emergency) Current Outpatient Medications Medication Sig traMADol (ULTRAM) 50 mg tablet Take 1 tablet by mouth once daily as needed for pain for up to 30 days. OXcarbazepine (TRILEPTAL) 150 mg tablet Take 3 tablets twice daily. (Patient taking differently: Take 450 mg by mouth two times a day. Take 3 tablets twice daily.) baclofen 10 mg tablet Take 1 tablet by mouth three times a day as needed (facial pain). cyanocobalamin (VITAMIN B-12) 1,000 mcg tab Take 2 tablets by mouth once daily. Ferrous Sulfate (SLOW FE) 142 mg (45 mg iron) TbER Take 1 tablet by mouth twice daily. With food, iron supplement ascorbic acid, vitamin C, (VITAMIN C) 250 mg tablet Take 1 tablet by mouth once daily. Cholecalciferol, Vitamin D3, (VITAM (more content not included)... Normal [facility] CT ABD/PEL W IVCONon 025 CT ABD/PEL W IVCON * * *Final Report* * * DATE OF EXAM: Jan 16 2025 9:20AM [facility] 0530 - CT ABD/PEL W IVCON / PROCEDURE REASON: Hernia * * * * Physician Interpretation * * * * EXAMINATION: CT ABDOMEN AND PELVIS WITH IV CONTRAST CLINICAL HISTORY: Hernia TECHNIQUE: CT of the abdomen and pelvis was performed using standard technique, scanning from just above the dome of the diaphragm to the symphysis pubis. MQ: CTAP_3 Contrast: IV: 100 ml of Omnipaque 350 Oral: 10 ml of Omni 240 10-25ml diluted with water CT Radiation dose: Integrated Dose-length product (DLP) for this visit = 288 mGy*cm. CT Dose Reduction Employed: Automated exposure control(AEC) and iterative recon COMPARISON: 12/21/2016. RESULT: Liver: There is no focal discrete hepatic mass. Biliary: There is no biliary dilation. The gallbladder is grossly unremarkable. Spleen: No mass. No splenomegaly. Pancreas: There is no obvious focal discrete pancreatic mass or pancreatic ductal dilation. Adrenals: No mass. Kidneys: There is no hydronephrosis or perinephric fluid collection. GI tract: Nonspecific wall of the stomach likely relates to underdistention. Moderate stool burden. Apparent wall thickening of the ascending colon likely relates to underdistention. Lymph nodes: There are prominent, less than 1 cm abdominal lymph nodes, likely reactive. Mesentery/Peritoneum : Haziness and mild thickening is again seen within the omentum, when compared to the prior examination. No abdominal ascites. Retroperitoneum: No mass. Vasculature: No abdominal aortic aneurysm. Pelvis: Urinary bladder is nondistended. Prominent, less than 1 cm pelvic lymph nodes are likely reactive. Phleboliths are seen within the pelvis. No pelvic mass or pelvic ascites. Bones/Soft Tissues: There is a tiny subumbilical ventral hernia, containing omental fat. Opening for this hernia measures approximately 2.3 mm (series 5, image #46). There is bilateral hip DJD, left greater than right. A few presumed bone islands are incidentally noted within the osseous structures. Vacuum phenomena is seen involving the sacroiliac joint spaces, bilaterally. Disc space narrowing and vacuum disc phenomena is seen at L5-S1. Lower thorax: Stable 3 mm subpleural nodule within the right middle lobe (series 5, image #7). Mild dependent atelectasis. IMPRESSION: Tiny supraumbilical ventral hernia, containing omental fat. Again seen is a stable mild thickening and fat stranding involving the omentum, not significantly change in the interval. There is no abdominal ascites. Stable 3 mm subpleural nodule within the right middle lobe, most likely benign, given stability since at least November 2016. No follow-up examination is required. Senior Media Director: PSCB Transcribe Date/Time: Jan 17 2025 9:39A Dictated by : REYMUNDO MADSEN MD This examination was interpreted and the report reviewed and electronically signed by: REYMUNDO MADSEN MD on Jan 17 2025 9:49AM EST [id number] CN Normal [facility] 01-13-2025 [facility] Tele[facility] (LASHONWS) CECILIA PATEL ([id number]) 1970 F Date Time Provider Department 01/13/25 GISSELL FONTENOT [facility] During your visit today, we recorded the following information about you: Allergies As of Date: 01/13/2025 Noted Allergy Reaction CARBAMAZEPINE 01/12/2024 4 - Hives CATS 06/14/2010 5 - Intolerance SEASONAL ALLERGIES 06/14/2010 5 - Intolerance Date Reviewed: 01/08/2025 Reviewed by: Gissell Fontenot APRN.AUTHORIZATION REP - Fully Assessed Primary Visit Diagnosis:Trigeminal neuralgia of right side of face [G50.0] Other Visit Diagnosis:Chronic pain syndrome [G89.4] Order(s):traMADol (ULTRAM) 50 mg tabletTake 1 tablet by mouth once daily as needed for pain for up to 30 days.Disp: 30 tabletRfl: 0 Prescriptions as of 01/13/2025 - traMADol (ULTRAM) 50 mg tablet Take 1 tablet by mouth once daily as needed for pain for up to 30 days. - OXcarbazepine (TRILEPTAL) 150 mg tablet Take 3 tablets twice daily. - OXcarbazepine (TRILEPTAL) 150 mg tablet Take 1 tablet by mouth two times a day. - baclofen 10 mg tablet Take 1 tablet by mouth three times a day as needed (facial pain). - cyanocobalamin (VITAMIN B-12) 1,000 mcg tab Take 2 tablets by mouth once daily. - Ferrous Sulfate (SLOW FE) 142 mg (45 mg iron) TbER Take 1 tablet by mouth twice daily. With food, iron supplement - LORazepam (ATIVAN) 0.5 mg Take 0.25 mg by mouth. - ascorbic acid, vitamin C, (VITAMIN C) 250 mg tablet Take 1 tablet by mouth once daily. - Cholecalciferol, Vitamin D3, (VITAMIN D-3) 50 mcg (2,000 unit) cap Take 1 capsule by mouth once daily. - Biotin 10,000 mcg cap Take 1 capsule by mouth once daily. - Zinc Sulfate 25 mg zinc (110 mg) tab Patient takes 22.5 mg daily - Herbal Drugs tab Magnesium 50 mg daily Meds Comments as of 12/21/2020: Vitamin D supplement, Problem List As Of Date 01/13/2025 Noted Resolved Routine gynecological examination [Z01.419] 06/14/2010 Class: Chronic Murmur, heart [R01.1] 06/14/2010 Headache(784.0) [R51] 06/14/2010 Allergic rhinitis [J30.9] 08/08/2012 Hives [L50.9] 08/08/2012 01/08/2025 Well adult exam [Z00.00] 12/12/2016 Trigeminal neuralgia of right side of face [G50*12/21/2020 Bunion of great toe of right foot [M21.611] 12/21/2020 Mitral regurgitation [I34.0] 05/04/2021 Hyperlipidemia, mixed [E78.2] 01/10/2022 Anemia [D64.9] 01/10/2022 Osteopenia of spine [M85.88] 01/18/2022 Fatigue [R53.83] 09/21/2022 Hyperglycemia [R73.9] 09/21/2022 01/08/2025 Varicose veins with pain [I83.819] 03/21/2023 Mitral valve insufficiency, acquired [I34.0] 03/21/2023 Dyslipidemia [E78.5] 03/21/2023 IFG (impaired fasting glucose) [R73.01] 03/21/2023 Vitamin B12 deficiency [E53.8] 03/21/2023 Iron deficiency anemia [D50.9] 09/19/2023 Disorder of bone and cartilage [M89.9, M94.9] 09/19/2023 Trigeminal nerve disorder [G50.9] 01/12/2024 Menopausal and postmenopausal disorder [N95.9] 01/08/2025 Hernia [K46.9] 01/08/2025 Trigeminal neuralgia [G50.0] 01/08/2025 Prescriptions ordered this encounter Disp Refills Start End TRAMADOL 50 MG TABLET 30 t* 0 01/13/2025 02/12/2025 Route: ORAL Sig: Take 1 tablet by mouth once daily as needed for pain for up to 30 days. Encounter Status:Closed by GISSELL FONTENOT on 01/13/25 [facility] 01-08-2025 CNOV Office Visit (IANPWS) CECILIA PATEL ([id number]) 1970 F Date Time Provider Department 01/08/25 9:20 AM GISSELL FONTENOT During your visit today, we recorded the following information about you: Pulse Blood pressure Weight 77/minute 106/68 48.5 kg Gissell Fontenot APRN.AUTHORIZATION REP 01/08/2025 10:48 AM Signed Chief complaint: abdominal lump right lower larger; night sweats; trigeminal neuralgia regimen/refills HPI: Cecilia is a 54-year-old female, with a history of trigeminal neuralgia, presenting with a progressively enlarging abdominal mass and night sweats. Cecilia reports a non-tender abdominal mass on the right side that has been gradually enlarging over the past 7 years. Initially described as a small nunam iqua or bump, the mass is now more prominent and noticeable when standing, but seems to diminish when lying down. Cecilia denies any specific inciting event, such as lifting, that preceded the appearance of the mass. She has a history of two C-sections, the last one being 16 years ago, and notes that the mass started near the incision site. She has not undergone any recent imaging for this issue but had a CT scan and PET scan in 2017, which did not raise significant concerns at the time. She says she also saw Dr Prabhakar in general surgery who did not feel she needed intervention. She denies any associated pain, tenderness, bowel or urinary issues. Additionally, Cecilia reports experiencing night sweats for at least a year, which have become more frequent. She has not had a menstrual period in approximately 2 years and attributes the night sweats to menopausal symptoms. She plans to discuss this issue with her comfort filler in a couple of month and has an appointment scheduled. Neurology: Cecilia also has a history of trigeminal neuralgia and is currently under the care of a neurologist. She was previously on gabapentin for several years but recently switched to oxcarbazepine due to decreased efficacy of gabapentin. She is currently taking 300 mg in the morning and 450 mg at night, although her prescription is for 150 mg twice daily. There is a [address] Tao's office that it was increased to 450mg twice daily 12/28/24 but she doesn't have that current prescription sent in. She has about a 7-day supply left and has requested a refill from her neurologist. She prefers to still be able to choose between 300mjg or 450mg in the morning. She also uses tramadol 50 mg as needed for breakthrough pain, approximately once a day, and is requesting a refill. She uses it maybe once daily or less, worries about not having it if she needs it. She experiences several flare-ups of trigeminal neuralgia per month (usually daily has an episode of pain), characterized by sharp pain and constant burning in her tongue and jaw, which can interfere with eating and talking. ROS Constitutional: (+) night sweats , weight is stable; pain/discomfort not associated with bulge Gastrointestinal: (+) right-sided abdominal bulge, (-) bowel changes Genitourinary: (-) urinary difficulty Neurological: (+) facial pain/burning (trigeminal region) Physical exam: GENERAL: pleasant, AANDO SKIN: Unremarkable, no rash or skin lesions. HEAD: Normocephalic. LUNGS: Clear to auscultation bilaterally, no wheezes/rhonchi/rale s. HEART: Regular rate and rhythm, no murmurs ABDOMEN: Soft, non-tender. Palpable mass noted in the right lower quadrant when standing, soft; diminishes when supine. Normal bowel sounds. EXTREMITIES: Normal, no deformities, no skin discoloration, no edema. Diagnostics: Labs: (October) - Labs: unremarkable Imaging: (2016) CT Abdomen: Omental stranding and thickening in the upper abdomen, especially in the right perihepatic region. - (2016)PET Scan: unremarkable Assessment/Plan: 1. Hernia (K46.9), RLQ/near groin - Ordered CT scan to further evaluate the abdominal mass, also discussed with Dr Pickard who suggested a general surgeon consult as well AFTER the CT scan 2. Trigeminal neuralgia (G50.0) Trigeminal neuralgia of right side of face (G50.0) - Confirm current oxcarbazepine dosage with neurologist and ensure appropriate prescription is provided. - Patient to continue current oxcarbazepine regimen and has a BMP ordered by neurology, expected by 02/18/25. - Will coordinate with Dr. Cook's office to ensure timely refill of oxcarbazepine and if they will reorder tramadol as well. Encouraged patient to follow up with Dr Tao's office if she doesn't hear back. 3. Menopausal and postmenopausal disorder (N95.9) Experiencing night sweats for approximately one year. Amenorrhea for two years. Symptoms likely related to menopausal hormonal changes. - Patient to discuss symptoms with comfort filler at upcoming appointment in a couple of months. - No immediate labs ordered; patient prefers (more content not included)... Normal [facility] RHEA SCREENING W TOMOon 12-19 RHEA SCREENING W MANOLO * * *Final Report* * * DATE OF EXAM: Dec 19 2024 10:13AM [facility] [id number] - RHEA SCREENING W MANOLO / PROCEDURE REASON: Encounter for screening mammogram for breast cancer * * * * Physician Interpretation * * * * RESULT: [place] [address] [place] [address] #[id number] - RHEA SCREENING W MANOLO HISTORY: 54 year-old patient seen for screening. Patient is asymptomatic in both breasts. Patient states no personal history of breast cancer. The patient has a family history of breast cancer. COMPARISON STUDIES: The present examination has been compared to prior imaging studies dated 05/18/2015 (mammogram), 06/04/2018 (mammogram) and 02/02/2021 (mammogram). MAMMOGRAM TECHNIQUE: The study was acquired using full field digital technology and interpreted from soft copy. Digital Breast Tomosynthesis (DBT) images were obtained and used to assist in the interpretation of this examination. MAMMOGRAM FINDINGS: There are scattered areas of fibroglandular density. There are bilateral pre-pectoral saline implants, which may obscure the breast parenchyma, limiting visualization. No suspicious masses, calcifications or other abnormalities are seen in either breast. There are no significant interval changes. IMPRESSION: There is no mammographic evidence of malignancy in either breast. Routine screening mammogram is recommended. Annual mammogram will be due in 1 year. BI-RADS Category 1: Negative RISK: Based on the Tyrer-Cuzick (TC) risk assessment model, this patient has a 4.0% lifetime risk of developing breast cancer, meaning they are at average risk for developing breast cancer. However, this is only an estimate based on available history provided on the patient's questionnaire. We encourage all patients to talk with their providers about these results, further recommendations for managing breast health, and appropriate supplemental screening options if the patient has dense breast tissue. Interpreting Radiologist: Giana Parrish M.D. Electronically signed on: 12/22/2024 Senior Media Director: JOSHUA Mongeriedwina Date/Time: Dec 19 2024 9:49A Dictated by: GIANA PARRISH MD This examination was interpreted and the report reviewed and electronically signed by: GIANA PARRISH MD on Dec 22 2024 10:17AM EST [id number] CN Normal [facility] CNOVon 11-14-2024 CNOV Office Visit ([facility]) CECILIA PATEL ([id number]) 1970 F Date Time Provider Department 11/14/24 10:30 AM MERCEDES TAO [facility] During your visit today, we recorded the following information about you: Pulse Blood pressure Weight 70/minute 106/68 47.6 kg Mercedes Tao DO 11/14/2024 6:45 PM [facility] - Botox Follow-up Visit ASSESSMENT: 54 yof with history significant for rare migraine without aura (1/year), with R V2-3 trigeminal neuralgia. Neurosurgery recommended MVD given the classical nature of the pain and visualized arterial loop touching the trigeminal nerve on imaging, so this is an option if things are not improving. We are using Botox for her R trigeminal nerve disorder, which she has been responding to very well. PLAN: (Please see typed patient instructions for detailed instructions) ---> Acute Treatment: -Tramadol vs. Baclofen prn breakthrough pain until preventive therapy starts helping. ---> Preventive Treatment: -Gabapentin 900 mg tid was prior dose. She has been self adjusting herself. -Discussed adding a Trileptal trial next if pain is becoming less responsive to Botox, or if it is starting to wear off prematurely. -Botox today. ---> Follow-up: 3 months for Botox. Last Visit: 07/30/24 Interval Headache Hx: Responding to Botox until it starts to wear off. HEADACHE SCORES: 09/05/2023 Headache Questions Days per month with mild/moderate face pain: 15 Days per month with severe face pain: 10 PRN medication usage in the last month: 30 09/05/2023 GE - 2/7 SCORES GE-2 Score 2 09/05/2023 PHQ-9 Score 1 BP 106/68 Pulse 70 Wt 47.6 kg (105 lb) LMP 08/08/2022 (Approximate) BMI 18.49 kg/m? Patient name: Cecilia Patel : 1970 ALLERGIES Allergen Reactions Carbamazepine Hives Cats Intolerance Seasonal Allergies Intolerance UNIVERSAL PROTOCOL / SAFETY CHECKLIST Procedure to be Performed: Botox Sign In: A Moment of CARE was completed. Personnel directly involved with the procedure wore the appropriate PPE (Personal Protective Equipment). Patient/Surrogate Stated/Verified: PATIENT VERIFIED(optional for EMERGENT procedures): Patient name, Date of , Relevant allergies, and The intended procedure Time Out Communication: Intended patient and procedure match the source documents. Consent documented and matches the intended procedure. Sign Out: SIGN OUT (optional for EMERGENT procedures): No specimen collected. Mercedes Tao DO UNIVERSAL PROTOCOL / SAFETY CHECKLIST Procedure: Botox for R V2>3 trigeminal neuralgia Informed Consent Consent Obtained: Written [place] Protocol A moment to CARE was completed SIGN IN Personnel directly involved with the procedure wore the appropriate PPE Special Equipment: N/A Patient/Surrogate Stated/Verified: Patient name, Date of , Relevant allergies and Intended procedure TIME OUT No relevant labs, photos, and/or imaging studies were applicable for review. Consent documented and matches the intended procedure No correct side/site applicable for marking and visibility. No medications required for procedure. No fire risk assessment and interventions applicable. No implant(s) inserted. SIGN OUT No specimen collected. Written Consent Obtained: Written I have reviewed the Lit Status Assessment responses and discussed these with the patient: yes The risks, benefits and anticipated outcomes of the procedure, the risks and benefits of the alternatives to the procedure, and the roles and tasks of the personnel to be involved, were discussed with the patient, and the patient consents to the procedure and agrees to proceed. Informed consent signed. UNIVERSAL PROTOCOL / SAFETY CHECKLIST Procedure to be performed: BOTOX for trigeminal neuralgia in the R V2>3 distribution (injections performed bilateral for muscle symmetry) Sign in Communication: completed Time Out: Team Confirms the Correct Patient, Correct Procedure, Correct Site and Site Marking, Correct Position (if applicable). Time: 1122 Affirmation of Time Out: completed Sign Out Discussion: completed 100 units of Botox A (lot # [id number] expiration date 12/2026) was diluted in 2 cc normal saline. Botox Sites: Units used: 100 Units wasted: 0 Mercedes Tao DO [facility] [place] Department [facility] [address] [place] [address], [place] [address] Pager [phone] Prior Therapies Duration of Use Dose Side effect Analgesic Diclofenac (Voltaren, Cataflam, Cambia) Hydrocodone/Acetamin ophen (Vicodin, [place]) Hydromorphone (Dilaudid) Ketorolac (Toradol) Meloxicam (Mobic) (more content not included)... Normal [facility] 25(OH)D3 Sarina-rocky 2024 25-hydroxyvitamin D3 [Mass/Vol] 49.0 ng/mL Normal 31.0-80.0 [facility] Comment on above: Order Comment: Speci men Type: BLOOD SPECIMENOrdering Facility: [facility] Address: [address] [place] [address] Performed By: #### 1 989-3 ####[facility] LABCLIA [id number] [place] [address] [place] CBC panel Auto (Bld)on 11-05 Erythrocyte distribution width (RBC) [Ratio] 12.5 % Normal 11.5-15.0 [facility] Comment on above: Order Comment: Speci men Type: BLOOD SPECIMENOrdering Facility: [facility] Address: [address] [place] [address] Performed By: #### 5 8410-2 ####[facility] [id number] [place] [address] [place] Hematocrit (Bld) [Volume fraction] 39.9 % Normal 39.0-51.0 [facility] Comment on above: Order Comment: Speci men Type: BLOOD SPECIMENOrdering Facility: [facility] Address: [address] [place] [address] Performed By: #### 5 8410-2 ####[facility] [id number] [place] [address] [place] Hemoglobin (Bld) [Mass/Vol] 13.0 g/dL Normal 13.0-17.0 [facility] Comment on above: Order Comment: Speci men Type: BLOOD SPECIMENOrdering Facility: [facility] Address: [address] [place] [address] Performed By: #### 5 8410-2 ####[facility] [id number] [place] [address] [place] MCH (RBC) [Entitic mass] 28.8 pg Normal 26.0-34.0 [facility] Comment on above: Order Comment: Speci men Type: BLOOD SPECIMENOrdering Facility: [facility] Address: [address] [place] [address] Performed By: #### 5 8410-2 ####[facility] [id number] [place] [address] [place] MCHC (RBC) [Mass/Vol] 32.6 g/dL Normal 30.5-36.[address] [facility] Comment on above: Order Comment: Speci men Type: BLOOD SPECIMENOrdering Facility: [facility] Address: [address] [place] [address] Performed By: #### 5 8410-2 ####[facility] [id number] [place] [address] [place] MCV (RBC) [Entitic vol] 88.5 fL Normal 80.0-100.0 [facility] Comment on above: Order Comment: Speci men Type: BLOOD SPECIMENOrdering Facility: [facility] Address: [address] [place] [address] Performed By: #### 5 8410-2 ####[facility] [id number] [place] [address] [place] Nucleated RBC (Bld) [#/Vol] 10*3/uL Normal <0.01 [facility] Comment on above: Order Comment: Speci men Type: BLOOD SPECIMENOrdering Facility: [facility] Address: [address] [place] [address] Performed By: #### 5 8410-2 ####[facility] [id number] [place] [address] [place] Platelet mean volume (Bld) [Entitic vol] 9.8 fL Normal 9.0-12.7 [facility] Comment on above: Order Comment: Speci men Type: BLOOD SPECIMENOrdering Facility: [facility] Address: [address] [place] [address] Performed By: #### 5 8410-2 ####[facility] [id number] [place] [address] [place] Platelets (Bld) [#/Vol] 270 10*3/uL Normal 150-400 [facility] Comment on above: Order Comment: Speci men Type: BLOOD SPECIMENOrdering Facility: [facility] Address: [address] [place] [address] Performed By: #### 5 8410-2 ####[facility] GARRISON MILLTOWNCLIA [id number] [place] [address] [place] RBC (Bld) [#/Vol] 4.51 10*6/uL Normal 4.20-6.00 [facility] Comment on above: Order Comment: Speci men Type: BLOOD SPECIMENOrdering Facility: [facility] Address: [address] [place] [address] Performed By: #### 5 8410-2 ####[facility] [id number] [place] [address] [place] WBC (Bld) [#/Vol] 4.93 10*3/uL Normal 3.70-11.00 [facility] Comment on above: Order Comment: Speci men Type: BLOOD SPECIMENOrdering Facility: [facility] Address: [address] [place] [address] Performed By: #### 5 8410-2 ####[facility]ENTERWNCLIA [id number] [place] [address] [place] Comprehensive metabolic 2000 panelon 11-05-2024 Albumin [Mass/Vol] 4.6 g/dL Normal 3.9-4.9 [facility] Comment on above: Order Comment: Speci men Type: BLOOD SPECIMENOrdering Facility: [facility] Address: [address] [place] [address] Performed By: #### 2 4323-8 ####[facility] ERTOWNCLIA [id number] [place] [address] [place] ALP [Catalytic activity/Vol] 59 U/L Normal 38-113 [facility] Comment on above: Order Comment: Speci men Type: BLOOD SPECIMENOrdering Facility: [facility] Address: [address] [place] [address] Performed By: #### 2 4323-8 ####[facility] MILLWNCLIA [id number] [place] [address] [place] ALT [Catalytic activity/Vol] U/L Low 10-54 [facility] Comment on above: Order Comment: Speci men Type: BLOOD SPECIMENOrdering Facility: [facility] Address: [address] [place] [address] Performed By: #### 2 4323-8 ####[facility] GARRISON MILLTOWNCLIA [id number] [place] [address] [place] Anion gap [Moles/Vol] 11 mmol/L Normal 8-[address] [facility] Comment on above: Order Comment: Speci men Type: BLOOD SPECIMENOrdering Facility: [facility] Address: [address] [place] [address] Performed By: #### 2 4323-8 ####[facility] [id number] [place] [address] [place] AST [Catalytic activity/Vol] 15 U/L Normal 14-40 [facility] Comment on above: Order Comment: Speci men Type: BLOOD SPECIMENOrdering Facility: [facility] Address: [address] [place] [address] Performed By: #### 2 4323-8 ####[facility] [id number] [place] [address] [place] Bilirubin [Mass/Vol] 0.3 mg/dL Normal 0.2-1.3 [facility] Comment on above: Order Comment: Speci men Type: BLOOD SPECIMENOrdering Facility: [facility] Address: [address] [place] [address] Performed By: #### 2 4323-8 ####[facility] FARMSNCLIA [id number] [place] [address] [place] Calcium [Mass/Vol] 9.5 mg/dL Normal 8.5-10.2 [facility] Comment on above: Order Comment: Speci men Type: BLOOD SPECIMENOrdering Facility: [facility] Address: [address] [place] [address] Performed By: #### 2 4323-8 ####[facility] FARMSNCLIA [id number] [place] [address] [place] Chloride [Moles/Vol] 104 mmol/L Normal 98-107 [facility] Comment on above: Order Comment: Speci men Type: BLOOD SPECIMENOrdering Facility: [facility] Address: [address] [place] [address] Performed By: #### 2 4323-8 ####[facility] [id number] [place] [address] [place] CO2 [Moles/Vol] 26 mmol/L Normal 22-30 [facility] Comment on above: Order Comment: Speci men Type: BLOOD SPECIMENOrdering Facility: [facility] Address: [address] [place] [address] Performed By: #### 2 4323-8 ####[facility] [id number] [place] [address] [place] Creatinine [Mass/Vol] 0.67 mg/dL Low 0.73-1.[address] [facility] Comment on above: Order Comment: Speci men Type: BLOOD SPECIMENOrdering Facility: [facility] Address: [address] [place] [address] Performed By: #### 2 4323-8 ####[facility] [id number] [place] [address] [place] Creatinine and Glomerular filtration rate.predicted panel (S/P/Bld) 104 mL/min/1.73m??? Normal >=60 [facility] Comment on above: Order Comment: Speci men Type: BLOOD SPECIMENOrdering Facility: [facility] Address: [address] [place] [address] Result Comment: Nancy mated Glomerular Filtration Rate (eGFR) is calculated using the 2020 CKD-EPI creatinine equation. This equation utilizes serum creatinine, sex, and age as parameters. The creatinine assay has traceable calibration to isotope dilution-mass spectrometry. Refer to KDIGO guidelines for clinical interpretation. In patients with unstable renal function, e.g. those with acute kidney injury, the eGFR may not accurately reflect actual GFR. Performed By: #### 2 4323-8 ####[facility] [id number] [place] [address] [place] Glucose [Mass/Vol] 103 mg/dL High 74-99 [facility] Comment on above: Order Comment: Shanae ortiz Type: BLOOD SPECIMENOrdering Facility: [facility] Address: [address] [place] [address] Result Comment: The [place] Diabetes Association (ADA) provides guidance for cutoff values for fasting glucose and random glucose. The ADA defines fasting as no caloric intake for at least 8 hours. Fasting plasma glucose results between 100 to 125 mg/dL indicate increased risk for diabetes (prediabetes). Fasting plasma glucose results greater than or equal to 126 mg/dL meet the criteria for diagnosis of diabetes. In the absence of unequivocal hyperglycemia, results should be confirmed by repeat testing. In a patient with classic symptoms of hyperglycemia or hyperglycemic crisis, random plasma glucose results greater than or equal to 200 mg/dL meet the criteria for diagnosis of diabetes. Reference: Standards of Medical Care in Diabetes 2016, [place] Diabetes Association. Diabetes Care. 2016.39(Suppl 1). Performed By: #### 2 4323-8 ####[facility] OHIOLIA [id number] [place] [address] [place] Potassium [Moles/Vol] 3.9 mmol/L Normal 3.7-5.[address] [facility] Comment on above: Order Comment: Shanae ortiz Type: BLOOD SPECIMENOrdering Facility: [facility] Address: [address] [place] [address] Performed By: #### 2 4323-8 ####[facility] [id number] [place] [address] [place] Protein [Mass/Vol] 7.1 g/dL Normal 6.3-8.0 [facility] Comment on above: Order Comment: Speci men Type: BLOOD SPECIMENOrdering Facility: [facility] Address: [address] [place] [address] Performed By: #### 2 4323-8 ####[facility] [id number] [place] [address] [place] Sodium [Moles/Vol] 141 mmol/L Normal 136-144 [facility] Comment on above: Order Comment: Speci men Type: BLOOD SPECIMENOrdering Facility: [facility] Address: [address] [place] [address] Performed By: #### 2 4323-8 ####[facility] [id number] [place] [address] [place] Urea nitrogen [Mass/Vol] 18 mg/dL Normal 7-21 [facility] Comment on above: Order Comment: Speci men Type: BLOOD SPECIMENOrdering Facility: [facility] Address: [address] [place] [address] Performed By: #### 2 4323-8 ####[facility] OHIOLIA [id number] [place] [address] [place] HbA1c (Bld)on 11-05-2024 Average glucose Estimated from glycated hemoglobin (Bld) [Mass/Vol] 105 mg/dL Normal [facility] Comment on above: Order Comment: Speci men Type: BLOOD SPECIMENOrdering Facility: [facility] Address: [address] [place] [address] Result Comment: eAG: (Estimated average glucose) is a calculated value from HgbA1c and is real estate representative of the average blood glucose level in the last 2-3 month period. Performed By: #### 5 5454-3 ####[facility] LABCLIA [id number] [place] [address] [place] HbA1c (Bld) [Mass fraction] 5.3 % Normal 4.3-5.6 [facility] Comment on above: Order Comment: Shanae ortiz Type: BLOOD SPECIMENOrdering Facility: [facility] Address: [address] [place] [address] Result Comment: [place] Diabetes Association guidelines indicate that patients with HgbA1c in the range 5.7-6.4% are at increased risk for development of diabetes, and intervention by lifestyle modification may be beneficial. HgbA1c greater or equal to 6.5% is considered diagnostic of diabetes. Performed By: #### 5 5454-3 ####[facility] LABCLIA [id number] [address] [place] Lipid 1996 panelon 5 Cholesterol [Mass/Vol] 208 mg/dL High <200 [facility] Comment on above: Order Comment: Shanae ortiz Type: BLOOD SPECIMENOrdering Facility: [facility] Address: [address] [place] [address] Result Comment: <200 mg/dL, Desirable 200-239 mg/dL, Borderline high >239 mg/dL, High Performed By: #### 3 016-3 ####[facility] LABCLIA [id number] [place] [address] [place]#### 11895-1 ####[facility] LABCLIA [id number] [place] [address] [place] [facility] [id number] [place] [address] [place] Cholesterol in HDL [Mass/Vol] 79 mg/dL Normal >39 [facility] Comment on above: Order Comment: Shanae ortiz Type: BLOOD SPECIMENOrdering Facility: [facility] Address: [address] [place] [address] Result Comment: 40-5 9 mg/dL, Acceptable >59 mg/dL, High: Negative risk factor for coronary heart disease <40 mg/dL, Low: Positive risk factor for coronary heart disease Performed By: #### 3 016-3 ####[facility] LABCLIA [id number] [address] [place]#### 97[address]-7 ####[facility] LABCLIA [id number] [address] STATES OF [facility] [id number] [place] [address] [place] Cholesterol in LDL [Mass/Vol] 117 mg/dL High <100 [facility] Comment on above: Order Comment: Speci men Type: BLOOD SPECIMENOrdering Facility: [facility] Address: [address] [place] [address] Result Comment: <100 mg/dL, Optimal 100-129 mg/dL, Near optimal/above optimal 130-159 mg/dL, Borderline high 160-189 mg/dL, High >189 mg/dL, Very high Secondary prevention optimal LDL Cholesterol levels are recommended to be < 70 mg/dL Performed By: #### 3 016-3 ####[facility] LABCLIA [id number] [address] [place]#### 38336-4 ####[facility] LABCLIA [id number] [address] STATES OF [facility] [id number] [place] [address] [place] Cholesterol in LDL/Cholesterol in HDL [Mass ratio] 1.48 {ratio} Normal <2.54 [facility] Comment on above: Order Comment: Speci men Type: BLOOD SPECIMENOrdering Facility: [facility] Address: [address] [place] [address] Result Comment: Refbeti castellano: 1. National Cholesterol Education Program ATP III Guideline At-A-Glance Quick Desk Reference: National Heart, Lung, and Blood [place]. National Institutes of Health. 2001: NIH Publication No. 01-3305. 2. An International Atherosclerosis Society position paper: global recommendations for the management of dyslipidemia: executive summary, Atherosclerosis. 2014: 232(2):410-413. Performed By: #### 3 016-3 ####[facility] LABCLIA [id number] [address] [place]#### 86687-4 ####[facility] LABCLIA [id number] [place] [id number] [facility] [id number] [place] [address] [place] Cholesterol in VLDL [Mass/Vol] 12 mg/dL Normal <30 [facility] Comment on above: Order Comment: Speci men Type: BLOOD SPECIMENOrdering Facility: [facility] Address: [address] [place] [address] Performed By: #### 3 016-3 ####[facility] LABCLIA [id number] [place] [id number] [place]#### 35545-1 ####[facility] LABCLIA [id number] [place] [id number] [facility] [id number] [place] [address] [place] Cholesterol non HDL [Mass/Vol] 129 mg/dL Normal <130 [facility] Comment on above: Order Comment: Speci men Type: BLOOD SPECIMENOrdering Facility: [facility] Address: [address] [place] [address] Result Comment: <130 mg/dL, Optimal 130-159 mg/dL, Near optimal/above optimal 160-189 mg/dL, Borderline high 190-219 mg/dL, High >219 mg/dL, Very high Secondary prevention optimal non HDL Cholesterol levels are recommended to be <100 mg/dL Performed By: #### 3 016-3 ####[facility] LABCLIA [id number] [facility] [address] [place] [address] [place]#### [id number] ####[facility] LABCLIA [id number] [facility] [address] [place] [address] [place] [facility] [id number] [place] [address] [place] Cholesterol.total/Cho lesterol in HDL [Mass ratio] 2.63 {ratio} Normal <5.10 [facility] Comment on above: Order Comment: Speci men Type: BLOOD SPECIMENOrdering Facility: [facility] Address: [address] [place] [address] Performed By: #### 3 016-3 ####[facility] LABCLIA [id number] [address], [facility]95 [place]#### [id number] ####[facility] LABCLIA [id number] [facility] [address] [place] [address] [place] [facility] [id number] [place] [address] [place] FASTING TIME 10 hrs Normal [facility] Comment on above: Order Comment: Speci men Type: BLOOD SPECIMENOrdering Facility: [facility] Address: [address] [place], [place] [id number] Performed By: #### 3 016-3 ####[facility] LABCLIA [id number] [facility] [address] [place] [address] [place]#### [id number] ####[facility] LABCLIA [id number] [facility] [address] [place] [address] [place] [facility] [id number] [place] [address] [place] Triglyceride [Mass/Vol] 60 mg/dL Normal <150 [facility] Comment on above: Order Comment: Speci men Type: BLOOD SPECIMENOrdering Facility: [facility] Address: [address] [place] [address] Result Comment: <150 mg/dL, Normal 150-199 mg/dL, Borderline high 200-499 mg/dL, High >499 mg/dL, Very high Performed By: #### 3 016-3 ####[facility] LABCLIA [id number] [address] [place]#### 26144-9 ####[facility] LABCLIA [id number] [address] [id number] [place] [address] [place] TSH SerPl-aCncon 11-05-2024 TSH Qn 1.460 m[IU]/L Normal 0.270-4.200 [facility] Comment on above: Order Comment: Speci men Type: BLOOD SPECIMENOrdering Facility: [facility] Address: [address] [place] [address] Performed By: #### 3 016-3 ####[facility] LABCLIA [id number] [address] [place]#### 38883-4 ####[facility] LABCLIA [id number] [address] [id number] [address] [place] CNOVon 07-30-2024 CNOV Office Visit ([facility]) JORGE,CECILIA D ([id number]) 1970 F Date Time Provider Department 07/30/24 11:00 AM MERCEDES TAO [facility] During your visit today, we recorded the following information about you: Pulse Blood pressure Weight 65/minute 107/70 49.9 kg Mercedes Tao, DO 07/30/2024 5:46 PM Signed [facility] - Botox Follow-up Visit ASSESSMENT: 54 yof with history significant for rare migraine without aura (1/year), with R V2-3 trigeminal neuralgia. Neurosurgery recommended MVD given the classical nature of the pain and visualized arterial loop touching the trigeminal nerve on imaging, so this is an option if things are not improving. We are using Botox for her R trigeminal nerve disorder, which she has been responding to very well. PLAN: (Please see typed patient instructions for detailed instructions) ---> Acute Treatment: -Tramadol vs. Baclofen prn breakthrough pain until preventive therapy starts helping. ---> Preventive Treatment: -Gabapentin 900 mg tid was prior dose. She has been self adjusting, and currently weaned herself off as of beginning of Jun. I suggested if pain starting to re-emerge she may want to resume. -Botox today. ---> Follow-up: 3 months for Botox. Last Visit: 04/23/24 Interval Headache Hx: Did very good with the last round, pain was gone for most of the treatment window. She did have some mild pain a bit further up near taoism on R despite pain resolution in other areas, so we'll add a couple extra there. HEADACHE SCORES: 09/05/2023 Headache Questions Days per month with mild/moderate face pain: 15 Days per month with severe face pain: 10 PRN medication usage in the last month: 30 09/05/2023 GE - 2/7 SCORES GE-2 Score 2 09/05/2023 PHQ-9 Score 1 BP 107/70 Pulse 65 Wt 49.9 kg (110 lb) LMP 08/08/2022 (Approximate) BMI 19.37 kg/m? Patient name: Cecilia Patel : 1970 ALLERGIES Allergen Reactions Carbamazepine Hives Cats Intolerance Seasonal Allergies Intolerance UNIVERSAL PROTOCOL / SAFETY CHECKLIST Procedure to be Performed: Botox Sign In: A Moment of CARE was completed. Personnel directly involved with the procedure wore the appropriate PPE (Personal Protective Equipment). Patient/Surrogate Stated/Verified: PATIENT VERIFIED(optional for EMERGENT procedures): Patient name, Date of , Relevant allergies, and The intended procedure Time Out Communication: Intended patient and procedure match the source documents. Consent documented and matches the intended procedure. Sign Out: SIGN OUT (optional for EMERGENT procedures): No specimen collected. Mercedes Tao DO UNIVERSAL PROTOCOL / SAFETY CHECKLIST Procedure: Botox for R V2>3 trigeminal neuralgia Informed Consent Consent Obtained: Written [place] Protocol A moment to CARE was completed SIGN IN Personnel directly involved with the procedure wore the appropriate PPE Special Equipment: N/A Patient/Surrogate Stated/Verified: Patient name, Date of , Relevant allergies and Intended procedure TIME OUT Intended patient and procedure match the source document(s) Consent documented and matches the intended procedure No relevant labs, photos, and/or imaging studies were applicable for review. No correct side/site applicable for marking and visibility. No medications required for procedure. No fire risk assessment and interventions applicable. No implant(s) inserted. SIGN OUT No specimen collected. No instruments, equipment or retained foreign bodies applicable. Post-procedure follow-up management communicated and Plan of Care Visit completed when applicable Written Consent Obtained: Written I have reviewed the Lit Status Assessment responses and discussed these with the patient: yes The risks, benefits and anticipated outcomes of the procedure, the risks and benefits of the alternatives to the procedure, and the roles and tasks of the personnel to be involved, were discussed with the patient, and the patient consents to the procedure and agrees to proceed. Informed consent signed. UNIVERSAL PROTOCOL / SAFETY CHECKLIST Procedure to be performed: BOTOX for trigeminal neuralgia in the R V2>3 distribution (injections performed bilateral for muscle symmetry) Sign in Communication: completed Time Out: Team Confirms the Correct Patient, Correct Procedure, Correct Site and Site Marking, Correct Position (if applicable). Time: 112 Affirmation of Time Out: completed Sign Out Discussion: completed 100 units of Botox A (lot # [id number] expiration date 10/2026) was diluted in 2 cc normal saline. Botox Sites: Units used: 92.5 Units wasted: 7.5 Mercedes Tao DO [facility] [place] Department of Neurology Center f (more content not included)... Normal [facility] CNOVon 04-23-2024 CNOV Office Visit ([facility]) CECILIA PATEL ([id number]) 1970 F Date Time Provider Department 04/23/24 11:00 AM MERCEDES TAO [facility] During your visit today, we recorded the following information about you: Pulse Blood pressure Weight 78/minute 128/87 48.5 kg Mercedes Tao DO 04/23/2024 1:12 PM Signed [facility] - Botox Follow-up Visit ASSESSMENT: 53 yof with history significant for rare migraine without aura (1/year), with R V2-3 trigeminal neuralgia. Neurosurgery recommended MVD given the classical nature of the pain and visualized arterial loop touching the trigeminal nerve on imaging, so this is an option if things are not improving. We are using Botox for her R trigeminal nerve disorder, which she responded very well to last treatment. PLAN: (Please see typed patient instructions for detailed instructions) ---> Acute Treatment: -Tramadol vs. Baclofen prn breakthrough pain until preventive therapy starts helping. ---> Preventive Treatment: -Gabapentin 900 mg tid (she has been self adjusting, and currently stable at 300 mg tid) -Botox #3 today. ---> Follow-up: 3 months for Botox. Last Visit: 09/07/23 Interval Headache Hx: Did very good with the last round, pain was gone for most of the treatment window outside of a couple brief flares. HEADACHE SCORES: 09/05/2023 Headache Questions Days per month with mild/moderate face pain: 15 Days per month with severe face pain: 10 PRN medication usage in the last month: 30 09/05/2023 GE - 2/7 SCORES GE-2 Score 2 09/05/2023 PHQ-9 Score 1 BP 128/87 Pulse 78 Wt 48.5 kg (107 lb) LMP 08/08/2022 (Approximate) BMI 18.84 kg/m? Patient name: Cecilia Patel : 1970 ALLERGIES Allergen Reactions Carbamazepine Hives Cats Intolerance Seasonal Allergies Intolerance UNIVERSAL PROTOCOL / SAFETY CHECKLIST Procedure to be Performed: Botox Sign In: A Moment of CARE was completed. Personnel directly involved with the procedure wore the appropriate PPE (Personal Protective Equipment). Patient/Surrogate Stated/Verified: PATIENT VERIFIED(optional for EMERGENT procedures): Patient name, Date of , Relevant allergies, and The intended procedure Time Out Communication: Intended patient and procedure match the source documents. Consent documented and matches the intended procedure. Sign Out: SIGN OUT (optional for EMERGENT procedures): No specimen collected. Mercedes Tao DO UNIVERSAL PROTOCOL / SAFETY CHECKLIST Procedure: Botox for R V2>3 trigeminal neuralgia Informed Consent Consent Obtained: Written [place] Protocol A moment to CARE was completed SIGN IN Personnel directly involved with the procedure wore the appropriate PPE Special Equipment: N/A Patient/Surrogate Stated/Verified: Patient name, Date of , Relevant allergies and Intended procedure TIME OUT Intended patient and procedure match the source document(s) Consent documented and matches the intended procedure No relevant labs, photos, and/or imaging studies were applicable for review. No correct side/site applicable for marking and visibility. No medications required for procedure. No fire risk assessment and interventions applicable. No implant(s) inserted. SIGN OUT No specimen collected. No instruments, equipment or retained foreign bodies applicable. Post-procedure follow-up management communicated and Plan of Care Visit completed when applicable Written Consent Obtained: Written I have reviewed the Lit Status Assessment responses and discussed these with the patient: yes The risks, benefits and anticipated outcomes of the procedure, the risks and benefits of the alternatives to the procedure, and the roles and tasks of the personnel to be involved, were discussed with the patient, and the patient consents to the procedure and agrees to proceed. Informed consent signed. UNIVERSAL PROTOCOL / SAFETY CHECKLIST Procedure to be performed: BOTOX for trigeminal neuralgia in the R V2>3 distribution (injections performed bilateral for muscle symmetry) Sign in Communication: completed Time Out: Team Confirms the Correct Patient, Correct Procedure, Correct Site and Site Marking, Correct Position (if applicable). Time: 1125 Affirmation of Time Out: completed Sign Out Discussion: completed 100 units of Botox A (lot # [id number], expiration date 06/2026) was diluted in 2 cc normal saline. Botox Sites: Site R L 1 2 3 4 5 6 7 8 5 9 2.5 10 2.5 11 2.5 12 2.5 13 2.5 2.5 14 2.5 15 2.5 2.5 16 2.5 2.5 17 2.5 18 2.5 19 2.5 20 2.5 2.5 21 2.5 2.5 22 23 5 5 24 2.5 2.5 25 2.5 2.5 26 2.5 27 2.5 Units used: 75 Units wasted: 25 Mercedes Tao DO [facility] [place] (more content not included)... Normal [facility] DXA Skeletal system.axial Vi ews for bone densityOrdered By: Ccf Provider on 01-29-2024 LOWEST T-SCORE -2.0 [facility] DXA Skeletal system.axial Vi ews for bone densityon 01-29-2024 IMPRESSION: THE LOWEST T-SCORE IS -2.0 IN THE SPINE 1) DIAGNOSIS (based on BMD alone): OSTEOPENIA Caution: Medical conditions other than osteoporosis may cause low bone density, such as osteomalacia or renal osteodystrophy. Clinical correlation is necessary. 2) FRACTURE RISK (Based on TBS adjusted FRAX): 10-year absolute fracture risk: - major osteoporotic fracture = 4.5 % - hip fracture = 0.3 % - A diagnosis of Osteoporosis, a 10 year probability of hip fracture greater than or equal to 3% or a 10 year probability of any major osteoporosis-related fracture greater than or equal to 20% should be considered for treatment. - DXA scanner generated FRAX calculations may slightly differ from online FRAX calculations due to differences in software versions. - All recommendations and calculations are to be considered as guidelines and should not replace sound clinical judgement - Caution: Fracture risk may be increased independent of BMD in patients with corticosteroid use, age greater than 65 years, or a history of prior fragility fracture. RECOMMENDATIONS: Follow-up in 2 years or as clinically indicated. Patients that are taking corticosteroids, are transplant recipients or have hyperparathyroidism should have annual follow-up. Follow-up scans should always be done on the same machine for accurate comparison. FOR MORE INFORMATION ABOUT DIAGNOSIS AND TREATMENT: [facility] Center for Osteoporosis and Metabolic Bone Disease:? [email or web address].org/carolann s/osteo National Osteoporosis Foundation:? www.nof.org International Society of Clinical Densitometry www.iscd.org Senior Media Director: MARCELA Transcribe Date/Time: Jan 29 2024 12:40P Dictated by : JOSEFA HIGHTOWER MD This examination was interpreted and the report reviewed and electronically signed by: JOSEFA HIGHTOWER MD on Jan 29 2024 12:42PM [facility] DIVISION OF RADIOLOGY * * *Final Report* * * DATE OF EXAM: Jan 29 2024 9:45AM [facility] 0804 - BD DXA - AXIAL SKELETON / PROCEDURE REASON: multiple diagnoses * * * * Physician Interpretation * * * * EXAMINATION: DXA BONE DENSITOMETRY BD DXA - AXIAL SKELETON PATIENT DEMOGRAPHICS: Age: 53 years, Gender: Female SCANNER INFORMATION: DXA Model: ColorChip - Intertwine C 01221 Date Scanned: 01/29/2024 9:45 AM CLINICAL HISTORY: DIAGNOSTIC Disorder of bone and cartilage Disorder of bone and cartilage Osteopenia of spine . RISK FACTORS FOR OSTEOPOROSIS AND ASSOCIATED FRACTURES REPORTED BY THIS PATIENT: Please refer to Bone Health Questionnaire in the EMR CURRENT THERAPY: Please refer to Bone Health Questionnaire in the EMR TECHNICAL LIMITATIONS: None RESULTS: Lumbar spine (L1, L2, L3, L4): 0.828 g/cm2, T-score -2.0, Z-score -1.0 Lumbar spine: 2021: 0.924 g/cm2 Statistically significant decrease Left Femoral Neck: 0.684 g/cm2, T-score -1.5, Z-score -0.5 Left Femoral Neck: 2021: 0.690 g/cm2 No statistically significant change Left Total Hip: 0.895 g/cm2, T-score -0.4, Z-score 0.2 Left Total Hip: 2021: 0.933 g/cm2 Statistically significant decrease CHANGE IS STATISTICALLY SIGNIFICANT IN THE SPINE OR HIP IF GREATER THAN OR EQUAL TO 0.04 g/cm2 VERTEBRAL FRACTURE ASSESSMENT Not performed. TRABECULAR BONE ASSESSMENT TBS score: 1.405 Bone micro-architecture: Normal (> 1.310) DIVISION OF RADIOLOGY Provider, [facility] [place] - 01/29/2024 * * *Final Report* * * DATE OF EXAM: Jan 29 2024 9:45AM [facility] 0804 - BD DXA - AXIAL SKELETON / PROCEDURE REASON: multiple diagnoses * * * * Physician Interpretation * * * * EXAMINATION: DXA BONE DENSITOMETRY BD DXA - AXIAL SKELETON PATIENT DEMOGRAPHICS: Age: 53 years, Gender: Female SCANNER INFORMATION: DXA Model: ColorChip - Intertwine C 42253 Date Scanned: 01/29/2024 9:45 AM CLINICAL HISTORY: DIAGNOSTIC Disorder of bone and cartilage Disorder of bone and cartilage Osteopenia of spine . RISK FACTORS FOR OSTEOPOROSIS AND ASSOCIATED FRACTURES REPORTED BY THIS PATIENT: Please refer to Bone Health Questionnaire in the EMR CURRENT THERAPY: Please refer to Bone Health Questionnaire in the EMR TECHNICAL LIMITATIONS: None RESULTS: Lumbar spine (L1, L2, L3, L4): 0.828 g/cm2, T-score -2.0, Z-score -1.0 Lumbar spine: 2021: 0.924 g/cm2 Statistically significant decrease Left Femoral Neck: 0.684 g/cm2, T-score -1.5, Z-score -0.5 Left Femoral Neck: 2021: 0.690 g/cm2 No statistically significant change Left Total Hip: 0.895 g/cm2, T-score -0.4, Z-score 0.2 Left Total Hip: 2021: 0.933 g/cm2 Statistically significant decrease CHANGE IS STATISTICALLY SIGNIFICANT IN THE SPINE OR HIP IF GREATER THAN OR EQUAL TO 0.04 g/cm2 VERTEBRAL FRACTURE ASSESSMENT Not performed. TRABECULAR BONE ASSESSMENT TBS score: 1.405 Bone micro-architecture: Normal (> 1.310) IMPRESSION IMPRESSION: THE LOWEST T-SCORE IS -2.0 IN THE SPINE 1) DIAGNOSIS (based on BMD alone): OSTEOPENIA Caution: Medical conditions other than osteoporosis may cause low bone density, such as osteomalacia or renal osteodystrophy. Clinical correlation is necessary. 2) FRACTURE RISK (Based on TBS adjusted FRAX): 10-year absolute fracture risk: - major osteoporotic fracture = 4.5 % - hip fracture = 0.3 % - A diagnosis of Osteoporosis, a 10 year probability of hip fracture greater than or equal to 3% or a 10 year probability of any major osteoporosis-related fracture greater than or equal to 20% should be considered for treatment. - DXA scanner generated FRAX calculations may slightly differ from online FRAX calculations due to differences in software versions. - All recommendations and calculations are to be considered as guidelines and should not replace sound clinical judgement - Caution: Fracture risk may be increased independent of BMD in patients with corticosteroid use, age greater than 65 years, or a history of prior fragility fracture. RECOMMENDATIONS: Follow-up in 2 years or as clinically indicated. Patients that are taking corticosteroids, are transplant recipients or have hyperparathyroidism should have annual follow-up. Follow-up scans should always be done on the same machine for accurate comparison. FOR MORE INFORMATION ABOUT DIAGNOSIS AND TREATMENT: [facility] Center for Osteoporosis and Metabolic Bone Disease:? [email or web address].org/[email or web address] s/osteo National Osteoporosis Foundation:? www.nof.org International Society of Clinical Densitometry www.iscd.org Senior Media Director: MARCELA Transcribe Date/Time: Jan 29 2024 12:40P Dictated by : JOSEFA HIGHTOWER MD This examination was interpreted and the report reviewed and electronically signed by: JOSEFA HIGHTOWER MD on Jan 29 2024 12:42PM EST [facility] Radiology Study observation (narrative) [facility] XR Foot - right AP and Later al and obliqueon 07-29-2022 IMPRESSION: STATUS POST HEALED BUNIONECTOMY WITH CANNULATED SCREW UNCHANGED COMPARED TO PREVIOUS EXAM. Senior Media Director: MARCELA Transcribe Date/Time: Jul 29 2022 4:30P Dictated by : RILEY MONTAGUE MD This examination was interpreted and the report reviewed and electronically signed by: RILEY MONTAGUE MD on Jul 29 2022 4:32PM EST DIVISION OF RADIOLOGY * * *Final Report* * * DATE OF EXAM: Jul 28 2022 9:32AM [facility] [id number] - XR FOOT 3V AP/LAT/OBL RT / PROCEDURE REASON: multiple diagnoses * * * * Physician Interpretation * * * * HISTORY: 52-YEAR-OLD FEMALE WITH Painful orthopaedic hardware (HCC) Acquired hallux limitus of right foot . pain for 7 weeks marked by the bb on right foot, has surgery there a year ago Sept. [place] dorsal side first MT area TECHNIQUE: XR FOOT 3V AP/LAT/OBL RT Laterality: RIGHT Number of different views (projections): 3 COMPARISON: 10/07/2021 RESULT: Status post bunionectomy which is healed with a cannulated screw traversing the osteotomy. The screw is proud on the dorsal aspect of the first metatarsal, best seen on lateral view. Cyst in the proximal phalanx at DIP joint of the great toe. Calcaneal enthesophyte insertion plantar fascia. Foot is otherwise unremarkable.. DIVISION OF RADIOLOGY Provider, [facility] - 07/29/2022 * * *Final Report* * * DATE OF EXAM: Jul 28 2022 9:32AM [facility] [id number] - XR FOOT 3V AP/LAT/OBL RT / PROCEDURE REASON: multiple diagnoses * * * * Physician Interpretation * * * * HISTORY: 52-YEAR-OLD FEMALE WITH Painful orthopaedic hardware (HCC) Acquired hallux limitus of right foot . pain for 7 weeks marked by the bb on right foot, has surgery there a year ago Sept. [place] dorsal side first MT area TECHNIQUE: XR FOOT 3V AP/LAT/OBL RT Laterality: RIGHT Number of different views (projections): 3 COMPARISON: 10/07/2021 RESULT: Status post bunionectomy which is healed with a cannulated screw traversing the osteotomy. The screw is proud on the dorsal aspect of the first metatarsal, best seen on lateral view. Cyst in the proximal phalanx at DIP joint of the great toe. Calcaneal enthesophyte insertion plantar fascia. Foot is otherwise unremarkable.. IMPRESSION IMPRESSION: STATUS POST HEALED BUNIONECTOMY WITH CANNULATED SCREW UNCHANGED COMPARED TO PREVIOUS EXAM. Senior Media Director: MARCELA Transcribe Date/Time: Jul 29 2022 4:30P Dictated by : RILEY MONTAGUE MD This examination was interpreted and the report reviewed and electronically signed by: RILEY MONTAGUE MD on Jul 29 2022 4:32PM EST [facility] XR Foot - right AP and Later al and obliqueOrdered By: Ccf Provider on 07-29-2022 [facility] XR Foot - right AP and Later al and obliqueon 07-28-2022 Radiology Study observation (narrative) [facility] GLUon 11-29-2021 Glucose [Mass/Vol] 88 mg/dL Normal 70-105 [facility] ([place]) Comment on above: Order Comment: FASTI NG > 8h Performed By: #### G MADELINE, LIPID, TSH #### [id number] [place], [place] [address] LABORATORYOrdered By: Taran Mehta on 11-29-2021 Cholesterol [Mass/Vol] 220 mg/dL Invalid Interpretation Code 0 - 200 mg/dL AO ADM SS Cholesterol in HDL [Mass/Vol] 99 mg/dL Invalid Interpretation Code 40 - 60 mg/dL AO ADM SS Cholesterol in LDL [Mass/Vol] 109 mg/dL Invalid Interpretation Code 0 - 130 mg/dL AO ADM SS Glucose [Mass/Vol] 88 mg/dL Invalid Interpretation Code 70 - 105 mg/dL AO ADM SS Triglyceride [Mass/Vol] 60 mg/dL Invalid Interpretation Code 0 - 150 mg/dL AO ADM SS TSH Qn 0.81 m[IU]/L Invalid Interpretation Code 0.36 - 3.74 mcIU/mL AO ADM SS LIPIDon 11-29-2021 Cholesterol [Mass/Vol] 220 mg/dL High 0-200 [facility] ([place]) Comment on above: Result Comment: Chol esterol Reference Interval: Less than 200 Desirable 200-239 Borderline high risk 240 and above High risk Performed By: #### Clarke CORREA, LIPID, TSH #### [address] [place], [place] [address] Cholesterol in HDL [Mass/Vol] 99 mg/dL High 40-60 [facility] ([place]) Comment on above: Performed By: #### Clarke CORREA, LIPID, TSH #### [address] [place], [place] [address] Cholesterol in LDL [Mass/Vol] 109 mg/dL Normal 0-130 [facility] ([place]) Comment on above: Performed By: #### Clarke MADELINE, LIPID, TSH #### [id number] [place], [place] [address] Triglyceride [Mass/Vol] 60 mg/dL Normal 0-150 [facility] ([place]) Comment on above: Result Comment: Trig lyceride Reference Interval: Less than 150 Normal 150-199 Borderline high risk 200-499 High risk 500 or higher Very high risk Performed By: #### G MADELINE, LIPID, TSH #### [address] [place], [place] [address] TSHon 11-29-2021 TSH Qn 0.81 m[IU]/L Normal 0.36-3.74 [facility] ([place]) Comment on above: Performed By: #### G MADELINE, LIPID, TSH #### [place] [id number] [place], [place] [address] Emergency Veterinary Assistant Cytology Reporton 2021 Emergency Veterinary Assistant Cytology Report . Pathology Reports Accession: Collected Date/Time: Received Date/Time: Pathologist: [id number] 10/27/2021 10:12 EST 10/27/2021 18:00 EST Emergency Veterinary Assistant Cytology Report SPECIMEN: Specimen Description: Liquid Prep w/ HPV Specimen: Cervical/Endocervica l Screening or Diagnostic: Screening RELEVANT HISTORY: LMP: 10/25/2021 [id number] SPECIMEN ADEQUACY: SATISFACTORY FOR EVALUATION LIMITED BY SCANT CELLULARITY ENDOCERVICAL/TRANSFO RMATIONAL ZONE COMPONENT PRESENT INTERPRETATION/RESUL TS: NEGATIVE FOR INTRAEPITHELIAL LESION OR MALIGNANCY HIGH RISK HPV TESTING: High Risk HPV Typing: Negative HPV Types 16, 18, 31, 33, 35, 39, 45, 51, 52, 56, 58, 59, 66 and 68 DNA were undetectable or below the pre-set threshold. The tito High-Risk HPV DNA Test is not intended for use as a screening device for Pap normal women under age 30 and is not intended to substitute for regular Pap screening. The tito High-Risk HPV DNA Test is designed to augment existing methods for the detection of cervical disease and should be used in conjunction with clinical information derived from other diagnostic and screening tests, physical examinations and full medical history in accordance with appropriate patient management procedures. NOTE: A negative result does not preclude the presence of HPV infection because results depend on adequate specimen collection, absence of inhibitors and sufficient DNA to be detected. COMMENT: This Pap Test was successfully processed and evaluated with the assistance of the [employer] Test Imaging System. Electronically Signed by Pathology report verified by [facility] Screened by: [place] Electronically signed by Brisa BERGER (ASC) Sign-Out Date: 11/01/2021 15:13 Performing Lab: [facility], [address] [place] [address] States Disclaimer The Pap test is a screening test for cervical cancer. As evidenced by published data, it is subject to both inherent false negative and false positive results. Your patient's results should be interpreted in context with pertinent clinical history including gynecological examination. Normal [facility] ([place]) HPVon 11-01-2021 HPV Interp Normal See Interp HPVN [facility] ([place]) Comment on above: Order Comment: Order placed by AP_HPV_ORDER rule from [id number] Result Comment: High Risk HPV Typing: NEGATIVE HPV types 16, 18, 31, 33, 35, 39, 45, 51, 52, 56, 58, 59, 66 and 68 DNA were undetectable or below the pre-set threshold. The tito High-Risk HPV DNA Test is not intended for use as a screening device for Pap normal women under age 30 and is not intended to substitute for regular Pap screening. The tito High-Risk HPV DNA Test is designed to augment existing methods for the detection of cervical disease and should be used in conjunction with clinical information derived from other diagnostic and screening tests, physical examinations and full medical history in accordance with appropriate patient management procedures. NOTE: A negative result does not preclude the presence of HPV infection because results depend on adequate specimen collection, absence of inhibitors and sufficient DNA to be detected. See Interp HPVN Performed By: #### H PV #### [place] [address] HPV Source Cervix Normal [facility] ([place]) Comment on above: Order Comment: Order placed by AP_HPV_ORDER rule from [id number] Performed By: #### H PV #### [place] [address] ALLIED HEALTHon 05-07-2021 ALLIED HEALTH HNO ID: [id number] Author: RT Jb(R) Service: Radiology Author Type: Technologist Type: Allied Health Filed: 05/07/2021 10:46 AM Note Text: Radiology Service Progress Note PATIENT NAME: Cecilia Patel DATE OF SERVICE: May 07, 2021 TIME: 10:46 AM PATIENT IDENTITY VERIFICATION COMPLETED USING TWO (2) IDENTIFIERS: Name and Date of confirmed by patient verbally. FALL SCREENING: Has the patient had 2 falls in the last year or 1 fall with injury or currently using an Ambulatory Assistive Device (Walker, Cane, Wheelchair, Crutches, etc.)? No PATIENT GENDER DATA: Female. status: : No status: NO. PATIENT RELEVANT IMPLANT DATA REVIEWED: Not Applicable RADIOLOGY DEPARTMENT: General X-ray: Exam(s) Completed: Lower Extremity X-Ray(s): Foot, Right PERIPHERAL IV DATA: Not applicable SIGNED BY: RT Jb(R) May 07, 2021 10:46 AM [facility] ANES POSTPROC EVALon 021 ANES POSTPROC EVAL HNO ID: [id number] Author: Colton Kennedy MD Service: Anesthesiology Author Type: Anesthesiologist Type: Anesthesia Postprocedure Evaluation Filed: 05/07/2021 12:07 PM Note Text: POST ANESTHESIA EVALUATION NOTE : 1970 Procedure Summary Date: 05/07/21 Room / Location: [place] [address] / [place] Anesthesia Start: 738 Anesthesia Stop: 1013 Procedure: BUNIONECTOMY W/PROXIMAL PHALANX OSTEOTOMY,ANY METHOD (Right Foot) Diagnosis: Acquired hallux valgus of right foot Surgeons: Bradley Blank Responsible Provider: Colton Kennedy MD Anesthesia Type: general ASA Status: 2 Anesthesia Type: general Last vitals Vitals Value Taken Time BP 124/65 05/07/21 1100 Temp 37 ?C (98.6 ?F) 05/07/21 1016 HR SpO2 69 05/07/21 1016 Resp 16 05/07/21 1100 SpO2 99 % 05/07/21 1100 Post Anesthesia Patient Status Patient Evaluation: bedside. Anticipated Disposition: phase 2 then home. Neurological Status: aware and responsive. Pulmonary Status: breathing comfortably on room air Airway Control: returned to baseline unsupported. Cardiovascular Status: stable. Pain Management: clinically adequate Postoperative Hydration: acceptable. Intraoperative Events: no significant anesthesia events Post Operative Nausea/Vomiting Status: no significant post operative nausea or vomiting Anesthetic Observations: Recommendation: continue current plan of care. No complications documented. SIGNATURE: Colton Kennedy MD PATIENT NAME: Cecilia Patel DATE: May 07, 2021 TIME: 12:07 PM CSN: [id number] [facility] ANES PRE-OPon 05-07-2021 ANES PRE-OP HNO ID: [id number] Author: Colton Kennedy MD Service: Anesthesiology Author Type: Anesthesiologist Type: Anesthesia Preprocedure Evaluation Filed: 05/07/2021 7:30 AM Note Text: ANESTHESIOLOGY DAY OF SURGERY NOTE : 1970 Procedure(s) (LRB): BUNIONECTOMY W/PROXIMAL PHALANX OSTEOTOMY,ANY METHOD (Right) Surgeon(s): Bradley Dominguez DPM Estimated body mass index is 19.84 kg/m? as calculated from the following: Height as of this encounter: 160 cm (5' 3). Weight as of this encounter: 50.8 kg (112 lb). Most recent hematocrit and potassium results: Hematocrit 40.8 10/09/2013 Potassium 4.1 10/09/2013 Relevant Problems CARDIO (+) Mitral regurgitation (+) Murmur, heart I - PHYSICAL EVALUATION AIRWAY Patient intubated: No. Tracheostomy tube not present Mallampati: I. TM distance: >3 FB. Neck ROM: full ROM without neurological symptoms. Mouth opening: adequate. Short neck: no. Thick neck: no DENTAL Normal dental observations. Dental findings: teeth intact. Additional exam findings: no II - ANESTHESIA PLAN ASA Score: 2 Anesthetic Plan: general Airway type: LMA The patient is not a current smoker. NPO Status: adequate Monitoring plan: standard ASA. Postoperative analgesic plan: parenteral or oral opioids. Anesthetic Risks, Benefits, Alternatives, Personnel Discussed. Consent obtained from: patient.Patient / Surrogate agrees to blood products: blood products not planned DNR status not reviewed with patient and/or family prior to surgery. Significant changes in the patient condition since the History and Physical, not otherwise documented in primary service progress note: no. Potential Anesthesia issues that may suggest increased risk of complications or contraindication to planned procedure: none. Vitals Value Taken Time BP 141/88 05/07/21641 Pulse 73 05/07/21641 Resp 16 05/07/21641 Temp 36.8 ?C (98.2 ?F) 05/07/21641 SpO2 100 % 05/07/21641 Facility-Administere d Medications as of 05/07/2021 Medication Dose Route Frequency - lidocaine 10 mg/mL (1 %) 1-2 mg injection (XYLOCAINE) 0.1-0.2 mL INTRADERMAL PRN - lactated ringers iv infusion 5-30 mL/hr INTRAVENOUS CONTINUOUS - ceFAZolin iv piggyback 2 g in D5W (iso-osmotic) 100 mL (ANCEF) 2 g INTRAVENOUS Pre-Op Once Outpatient Medications as of 05/07/2021 Medication Sig - LORazepam (ATIVAN) 0.5 mg Take 1 tablet by mouth twice daily as needed. I have interviewed and examined the patient. I have reviewed the medical record and/or the pre-anesthesia evaluation, pertinent labs, and test results. This contains updated information obtained within 48 hours of Surgery/Procedure. SIGNATURE: Colton Kennedy MD PATIENT NAME: Cecilia Patel DATE: May 07, 2021 TIME: 7:29 AM CSN: [id number] [facility] BRIEF OP NOTon 05-07-2021 BRIEF OP NOT HNO ID: [id number] Author: Cornelia Ahumada DPM Service: Podiatry Author Type: Resident Type: Brief Op Note Filed: 05/07/2021 10:20 AM Note Text: Attestation signed by Bradley Blank at 05/07/2021 12:47 PM I agree with resident note Bradley Blank DPM BRIEF OP NOTE LOG ID: [id number] Surgery/Procedure Date: 05/07/2021 Incision/Procedure Start Time: 08 Incision Close/Procedure End Time: 100 Surgeon(s)/Procedura list(s) and Physics And Astronomy Professor(s): Surgeon(s) and Role: * Bradley Blank - Primary * Shira Dominguez DPM - Assisting Procedure(s): Bunionectomy with distal metatarsal osteotomy, right foot Anesthesia: General Findings: See-operative note Estimated Blood Loss: < 5 mls Specimens: None Complications: None Pre-Op/Pre-Procedure Diagnosis: Hallux abductovalgus, right foot Post-Op/Post-Procedu re Diagnosis: Same SIGNATURE: Cornelia Ahumada DPM PATIENT NAME: Cecilia Patel DATE: May 07, 2021 TIME: 10:19 AM PAGER/CONTACT #: [facility] HISTORY PHYSICALon HISTORY PHYSICAL HNO ID: [id number] Author: Bradley Blank Service: Podiatry Author Type: Physician Type: HANDP Filed: 05/07/2021 7:24 AM Note Text: PODIATRIC HISTORY AND PHYSICAL UPDATE EVALUATION DATE: 05/07/2021 EVALUATION TIME: 7:07 AM The documented History and Physical (completed in the past 30 days) has been reviewed and the patient had a confirmatory musculoskeletal exam performed. The contents of the pre-operative assesment accurately reflect the patient's condition with the following additions or revisions since the HANDP was completed: No changes. This HANDP can be found in the record dated 04/29/2021. Cardiac: regular rate and rhythm Pulmonary: lungs are clear and symmetrical. Will plan with bunion correction of right foot with distal metatarsal osteotomy with possible ajith osteotomy. SIGNATURE: Cornelia Ahumada DPM PATIENT NAME: Cecilia Patel DATE: May 07, 2021 [facility] NURSING PROGon 05-07-2021 NURSING PROG HNO ID: [id number] Author: Yolande Parsons RN Service: Nursing Author Type: Registered Nurse Type: Nursing Progress Note Filed: 05/07/2021 6:51 AM Note Text: Nursing Progress Note Patient Name: Cecilia Patel Patient Location: [place] Surgery/[place] Surgery pt ready for OR, call light in reach, mom called to bedside. This note was completed by: Yolande Parsons [facility] OPERATIVE NOon 05-07-2021 OPERATIVE NO HNO ID: [id number] Author: Bradley Blank Service: Podiatry Author Type: Physician Type: Operative Report Filed: 05/07/2021 10:37 PM Note Text: OPERATIVE/PROCEDURE REPORT LOG ID: [id number] SURGERY/PROCEDURE DATE: 05/07/2021 INCISION/PROCEDURE START TIME: 8:01 AM INCISION CLOSE/PROCEDURE END TIME: 10:01 AM SURGEON(S)/PROCEDURA LIST(S) AND TEACHER'S ASSISTANT(S): Surgeon(s) and Role: * Bradley Blank - Primary * Shira Dominguez DPM - Assisting No Additional Staff SURGERY/PROCEDURE(S) : Modified campuzano bunionectomy with chevron osteotomy. ANESTHESIA: General SURGERY/PROCEDURE DETAILS: This patient is a very pleasant 50 year old female who complains of painful bunion of right foot. Her largest issue with her bunion is the pain when wearing shoes. She has tried wider shoes and padding but continues to have pain. Patient is interested in surgical correction of bunion deformity. I have reviewed her bunion both clinically and radiographically. On exam, she has no pain with dorsiflexion of right 1st mtpj however she does have pain along medial eminence of right 1st mtpj. She has xrays that show bunion deformity and the IM 1-2 measures just over 13 degrees. We discussed various procedures for this patient. We discussed right 1st mtpj fusion vs lapidus vs chevron/ajith osteotomy. I discussed rationale for all procedures. We specifically discussed first mtpj fusion as an option as there is mild arthritic changes of right 1st mtpj. At this time, patient is not interested in fusion of her right great toe. For this reason, we discussed the lapidus vs checron. Patient has elected the chevron osteotomy with possible ajith. I informed patient that if necessary, a phalangeal osteotomy could be performed for further correction. I discussed risks of the procedure not limited to infection, pain, swelling, bleeding, wound scarring, wound dehiscence, overcorrection of bunion deformity leading to hallux varus, undercorrection of bunion (failure to eliminate bunion). We also discussed nonunion, delayed union, malunion or avascular necrosis of bone. I informed patient that following the procedure, if there is any arthritic changes to the great toe, she may require fusion at a later time. She understands this. I have obtained pre-op vitamin d levels which were normal. I have obtained pre-op vascular studies which were normal. We discussed post-op care to include nwb. Any walking to her foot can result in complications noted above. I discussed risk of dvt following surgery and we offered prophylaxis. She has elected to pursue aspirin following surgery. All risks, benefits and alternatives were discussed. Patient consents to proceed with bunion correction by way of chevron bunionectomy with possible ajith. Patient was brought to the operating room and placed on the operating room table in the supine position. A sign in was performed making note of the procedure and personal involved. The patient was placed under general anesthesia and a local field block to the right 1st ray was performed with 1% lidocaine plain. A well padded tourniquet was sent for 250 mm mercury. The right lower extremity was prepped and draped in the sterile fashion. 2 grams of ancef was administered pre-op. Time out was performed making note of procedure. The right lower extremity was elevated and the tourniquet was inflated. An esmarch bandage was applied to the right foot and the tourniquet was inflated to 250 mm mercury. Attention was directed to the right foot where a dorsal medial incision along the first mtpj was performed. The incision was followed along the contour of the first ray. Dissection was performed down thru the subcutaneous tissue just medial to the extensor hallucis tendon and lateral to proper digitial nerve of the hallux. Attention was the directed to the first interspace where a lateral release was performed. The relase involved release of the deep transverse intermetatarsal ligament, release of the adductor tendon and release of fibula suspensory ligament. Evaluation of the first ray deemed successful lateral release. After completing the lateral release, attention was directed to the medial aspect of right 1st mtpj where a T capsular incision was performed exposing the first metatarsal head and base of proximal phalanx. Using a sagittal saw, the medial eminence was resected and redundant bone was passed to the back table. An accu-cut guid from [employer] was used to create a long arm dorie bunionectomy. This was performed. Of note, after performing the dorsal cut of the first metatarsal osteotomy, there was a meduallary cyst with softening that was encountered and this did complicate areas for planned screw placement. The capital fragment was shifted laterally and fixated with guide wire for screw placement. My original plan was to place two cannulated screws from dorsal distal to plantar proximal but gi (more content not included)... [facility] XR FLUOROSCOPYon 05-07-2021 XR FLUOROSCOPY * * *Final Report* * * DATE OF EXAM: May 07 2021 10:16AM MDR [id number] - XR FLUOROSCOPY / PROCEDURE REASON: BUNIONECTOMY-RIGHT * * * * Physician Interpretation * * * * TECHNIQUE: XR FLUOROSCOPY COMPARISON: Radiograph from 01/12/2021 TECHNIQUE: Limited fluoroscopic imaging of the right foot post calyx valgus surgery. CLINICAL INDICATION: BUNIONECTOMY-RIGHT Fluoroscopic Radiation Summary: Plane A, Air Kerma: 26.9 mGy Dose Area Product (DAP): 0.0 mGy*cm^2 Fluoro time: 1:00 min:sec IMAGE NUMBER: 5 RESULT: Interval hallux valgus surgery. Cannulated headless screw extends through the neck of the first metatarsal. IMPRESSION: 1. As above. Senior Media Director: PSCB Transcribe Date/Time: May 07 2021 12:29P Dictated by : LIV PHILIP MD This examination was interpreted and the report reviewed and electronically signed by: LIV PHILIP MD on May 07 2021 12:30PM EST [id number] [facility] XR FOOT 3V AP/LAT/OBL RTon 0 05-07-2021 XR FOOT 3V AP/LAT/OBL RT * * *Final Report* * * DATE OF EXAM: May 07 2021 10:47AM MDX [id number] - XR FOOT 3V AP/LAT/OBL RT / PROCEDURE REASON: Post-operative / post-procedure assessment, asymptomatic * * * * Physician Interpretation * * * * HISTORY: Post-operative / post-procedure assessment, asymptomatic POST OP TECHNIQUE: 3 views COMPARISON: 04/25/2019 right foot RESULT: First metatarsal osteotomy fixated by metallic screw and enclosed in a fiberglass cast. IMPRESSION: As in results Senior Media Director: MARCELA Transcribe Date/Time: May 07 2021 1:28P Dictated by : HEATHER GROVES MD This examination was interpreted and the report reviewed and electronically signed by: HEATHER GROVES MD on May 07 2021 1:29PM EST [id number] CN [facility] MAMMOGRAM SCREENING BILAT ERAL W/TOMOon 02-02-2021 [place] MAMMOGRAM SCREENING BILATERAL W/MANOLO ORIGINAL FROM: [place] [address] PROCEDURE FOR: CECILIA PATEL [address] [place] [address] Home: PID#: [id number] Exam#: [id number] : 1970 Age: 50 TO: MALIK SEO MD [address] [place] [address] Fax: NO FAX #[phone] BILATERAL DIGITAL SCREENING MAMMOGRAM 3D/2D WITH CAD WITH MEDIOLATERAL OBLIQUE CRANIOCAUDAL: 02/02/2021 Comparison is made to exams dated: 06/04/2018 mammogram and 05/18/2015 mammogram - [facility]. There are scattered fibroglandular elements in both breasts. Current study was also evaluated with a Computer Aided Detection (CAD) system. Bilateral breast implants are stable. No significant masses, calcifications, or other findings are seen in either breast. There has been no significant interval change. IMPRESSION: NEGATIVE There is no mammographic evidence of malignancy. A 1 year screening mammogram is recommended.( 022) SUPRIYA PITTS MD da/penrad:02/03/2021 14:15:10 Customer Assistance Representative(s): OWEN AGUERO, RT (R) (M) (CT), [facility] letter sent: Normal BI-RADS 1&2 Mammogram BI-RADS: 1 Negative Normal [facility] ([place]) Vital Signs Date Time Vital Sign Value Performing Clinician Marley garg 04-17-2025 11:00-0400 Body mass index (BMI) [Ratio] 19.62 kg/m2 Mercedes Tao DO Work Phone: [facility] 04-17-2025 11:00-0400 Body weight 49.44 kg Mercedes Tao DO Work Phone: [facility] 04-17-2025 11:00-0400 Diastolic blood pressure 75 mm[Hg] Mercedes Tao DO Work Phone: [facility] 04-17-2025 11:00-0400 Heart rate 67 /min Mercedes Tao DO Work Phone: [facility] 04-17-2025 11:00-0400 Systolic blood pressure 111 mm[Hg] Mercedes Tao DO Work Phone: [facility] 01-27-2025 14:25-0400 Body height 158.8 cm Stephon Prabhakar MD Work Phone: [facility] 01-27-2025 14:25-0400 Body mass index (BMI) [Ratio] 18.9 kg/m2 Stephon Prabhakar MD Work Phone: [facility] 01-27-2025 14:25-0400 Body temperature 98.49 [degF] Stephon Prabhakar MD Work Phone: [facility] 01-27-2025 14:25-0400 Body weight 47.63 kg Stephon Prabhakar MD Work Phone: [facility] 01-27-2025 14:25-0400 Diastolic blood pressure 80 mm[Hg] Stephon Prabhakar MD Work Phone: [facility] 01-27-2025 14:25-0400 Heart rate 100 /min Stephon Prabhakar MD Work Phone: [facility] 01-27-2025 14:25-0400 Respiratory rate 12 /min Stephon Prabhakar MD Work Phone: [facility] 01-27-2025 14:25-0400 SaO2% (BldA) [Mass fraction] 98 % Stephon Prabhakar MD Work Phone: [facility] 01-27-2025 14:25-0400 Systolic blood pressure 120 mm[Hg] Stephon Prabhakar MD Work Phone: [facility] 01-08-2025 09:15-0400 Body mass index (BMI) [Ratio] 18.84 kg/m2 Gissell Victor Hugo BIOMETRICS SPECIALIST.AUTHORIZATION REP Work Phone: [facility] 01-08-2025 09:15-0400 Body weight 48.53 kg Gissell Victor Hugo BIOMETRICS SPECIALIST.AUTHORIZATION REP Work Phone: [facility] 01-08-2025 09:15-0400 Diastolic blood pressure 68 mm[Hg] Gissell Victor Hugo BIOMETRICS SPECIALIST.AUTHORIZATION REP Work Phone: [facility] 01-08-2025 09:15-0400 Heart rate 77 /min Gissell Victor Hugo BIOMETRICS SPECIALIST.AUTHORIZATION REP Work Phone: [facility] 01-08-2025 09:15-0400 SaO2% (BldA) [Mass fraction] 100 % Gissell Victor Hugo BIOMETRICS SPECIALIST.AUTHORIZATION REP Work Phone: [facility] 01-08-2025 09:15-0400 Systolic blood pressure 106 mm[Hg] Gissell Victor Hugo BIOMETRICS SPECIALIST.AUTHORIZATION REP Work Phone: [facility] 11-14-2024 10:26-0400 Body mass index (BMI) [Ratio] 18.49 kg/m2 Mercedes Tao DO Work Phone: [facility] 11-14-2024 10:26-0400 Body weight 47.63 kg Mercedes Tao DO Work Phone: [facility] 11-14-2024 10:26-0400 Diastolic blood pressure 68 mm[Hg] Mercedes Tao DO Work Phone: [facility] 11-14-2024 10:26-0400 Heart rate 70 /min Mercedes Tao DO Work Phone: [facility] 11-14-2024 10:26-0400 Systolic blood pressure 106 mm[Hg] Mercedes Tao DO Work Phone: [facility] 07-30-2024 10:56-0500 Body mass index (BMI) [Ratio] 19.37 kg/m2 Mercedes Tao DO Work Phone: [facility] 07-30-2024 10:56-0500 Body weight 49.9 kg Mercedes Tao DO Work Phone: [facility] 07-30-2024 10:56-0500 Diastolic blood pressure 70 mm[Hg] Mercedes Tao DO Work Phone: [facility] 07-30-2024 10:56-0500 Heart rate 65 /min Mercedes Tao DO Work Phone: [facility] 07-30-2024 10:56-0500 Systolic blood pressure 107 mm[Hg] Mercedes Tao DO Work Phone: [facility] 04-23-2024 10:59-0400 Body mass index (BMI) [Ratio] 18.84 kg/m2 Mercedes Tao DO Work Phone: [facility] 04-23-2024 10:59-0400 Body weight 48.53 kg Mercedes Tao DO Work Phone: [facility] 04-23-2024 10:59-0400 Diastolic blood pressure 87 mm[Hg] Mercedes Tao DO Work Phone: [facility] 04-23-2024 10:59-0400 Heart rate 78 /min Mercedes Tao DO Work Phone: [facility] 04-23-2024 10:59-0400 Systolic blood pressure 128 mm[Hg] Mercedes Tao DO Work Phone: [facility] 03-27-2024 08:13-0400 Body height 160.5 cm Dell Pickard DO Work Phone: [facility] 03-27-2024 08:13-0400 Body mass index (BMI) [Ratio] 18.31 kg/m2 Dell Pickard DO Work Phone: [facility] 03-27-2024 08:13-0400 Body temperature 97 [degF] Dell Pickard DO Work Phone: [facility] 03-27-2024 08:13-0400 Body weight 47.17 kg Dell Pickard DO Work Phone: [facility] 03-27-2024 08:13-0400 Diastolic blood pressure 80 mm[Hg] Dell Pickard DO Work Phone: [facility] 03-27-2024 08:13-0400 Heart rate 76 /min Dell Pickard DO Work Phone: [facility] 03-27-2024 08:13-0400 Respiratory rate 12 /min Dell Pickard DO Work Phone: [facility] 03-27-2024 08:13-0400 Systolic blood pressure 118 mm[Hg] Dell Pickard DO Work Phone: [facility] 01-26-2024 08:52-0400 Diastolic blood pressure 70 mm[Hg] Chasity Ritter DO Work Phone: [facility] 01-26-2024 08:52-0400 Heart rate 82 /min Chasity Ritter DO Work Phone: [facility] 01-26-2024 08:52-0400 SaO2% (BldA) [Mass fraction] 100 % Chasity Ritter DO Work Phone: [facility] 01-26-2024 08:52-0400 Systolic blood pressure 110 mm[Hg] Chasity Ritter DO Work Phone: [facility] 01-12-2024 11:27-0400 Body mass index (BMI) [Ratio] 18.6 kg/m2 Mercedes Tao DO Work Phone: [facility] 01-12-2024 11:27-0400 Body weight 47.63 kg Mercedes Tao DO Work Phone: [facility] 01-12-2024 11:27-0400 Diastolic blood pressure 72 mm[Hg] Mercedes Tao DO Work Phone: [facility] 01-12-2024 11:27-0400 Heart rate 71 /min Mercedes Tao DO Work Phone: [facility] 01-12-2024 11:27-0400 Systolic blood pressure 112 mm[Hg] Mercedes Tao DO Work Phone: [facility] 12-15-2023 12:37-0400 Diastolic blood pressure 76 mm[Hg] Chasity Ritter DO Work Phone: [facility] 12-15-2023 12:37-0400 Heart rate 71 /min Chasity Ritter DO Work Phone: [facility] 12-15-2023 12:37-0400 SaO2% (BldA) [Mass fraction] 98 % Chasity Ritter DO Work Phone: [facility] 12-15-2023 12:37-0400 Systolic blood pressure 116 mm[Hg] Chasity Ritter DO Work Phone: [facility] 07-11-2023 11:13-0500 Diastolic blood pressure 84 mm[Hg] Chasity Ritter DO Work Phone: [facility] 07-11-2023 11:13-0500 Heart rate 75 /min Chasity Ritter DO Work Phone: [facility] 07-11-2023 11:13-0500 SaO2% (BldA) [Mass fraction] 99 % Chasity Ritter DO Work Phone: [facility] 07-11-2023 11:13-0500 Systolic blood pressure 131 mm[Hg] Chasity Ritter DO Work Phone: [facility] 07-04-2023 15:56-0500 Body weight 49.44 kg Mercedes Tao DO Work Phone: [facility] 07-04-2023 15:56-0500 Diastolic blood pressure 74 mm[Hg] Mercedes Tao DO Work Phone: [facility] 07-04-2023 15:56-0500 Heart rate 80 /min Mercedes Tao DO Work Phone: [facility] 07-04-2023 15:56-0500 Systolic blood pressure 116 mm[Hg] Mercedes Tao DO Work Phone: [facility] 01-03-2023 11:01-0400 Body height 160.5 cm Tawanda Henry MD Work Phone: [facility] 01-03-2023 11:01-0400 Body temperature 98.29 [degF] Tawanda Henry MD Work Phone: [facility] 01-03-2023 11:01-0400 Body weight 49.53 kg Tawanda Henry MD Work Phone: [facility] 01-03-2023 11:01-0400 Diastolic blood pressure 85 mm[Hg] Tawanda Henry MD Work Phone: [facility] 01-03-2023 11:01-0400 Heart rate 62 /min Tawanda Henry MD Work Phone: [facility] 01-03-2023 11:01-0400 Respiratory rate 18 /min Tawanda Henry MD Work Phone: [facility] 01-03-2023 11:01-0400 SaO2% (BldA) [Mass fraction] 100 % Tawanda Henry MD Work Phone: [facility] 01-03-2023 11:01-0400 Systolic blood pressure 129 mm[Hg] Tawanda Henry MD Work Phone: [facility] Encounters Encounter Date Encounter Type Care Provider Facility Start: 05-07-2025 End: 05-07-2025 ambulatory DELL ZOIE GR Facility:[facility] Start: 05-07-2025 End: 05-07-2025 Patient encounter procedure MALIK SEO MD [facility] Start: 04-17-2025 End: 04-17-2025 Patient encounter procedure Mercedes Tao DO Work Phone: Neurology Comment on above: Trigeminal neuralgia of right side of face (Primary Dx); Trigeminal nerve disorder Start: 04-17-2025 End: 04-17-2025 ambulatory DELL PICKARD Facility:[facility] Start: 03-17-2025 End: 03-18-2025 Refill Mercedes Tao DO Work Phone: Neurology Start: 03-13-2025 End: 03-13-2025 ambulatory DELL PICKARD Facility:[facility] Start: 01-30-2025 End: 01-30-2025 Refill Mercedes Tao DO Work Phone: Neurology Comment on above: Refill Request Start: 01-29-2025 End: 01-29-2025 Refill Gissell Fontenot APRN.AUTHORIZATION REP Work Phone: [facility] [place] Comment on above: Refill Request Start: 01-27-2025 End: 01-27-2025 Patient encounter procedure Stephon Prabhakar MD Work Phone: General Surgery Comment on above: Right inguinal herni a (Primary Dx); Hernia Start: 01-27-2025 End: 01-27-2025 ambulatory GISSELL FONTENOT Facility:[facility] Start: 01-17-2025 End: 03-19-2025 Follow-up encounter Gissell Fontenot APRN.AUTHORIZATION REP Work Phone: [facility] [place] Start: 01-16-2025 ambulatory GISSELL Roach lity:[facility] Start: 01-13-2025 End: 01-13-2025 Telephone encounter Gissell Fontenot APRN.AUTHORIZATION REP Work Phone: [facility] [place] Start: 01-08-2025 End: 01-08-2025 Office outpatient visit 25 minutes Gissell Fontenot APRN.AUTHORIZATION REP Work Phone: [facility] [place] Comment on above: Hernia (Primary Dx); Trigeminal neuralgia; Trigeminal neuralgia of right side of face; Menopausal and postmenopausal disorder Start: 01-08-2025 End: 01-08-2025 ambulatory GISSELL FONTENOT Facility:[facility] Start: 12-27-2024 End: 12-28-2024 Refill Mercedes P Tao DO Work Phone: Neurology Comment on above: Refill Request Start: 12-19-2024 ambulatory DELL PICKARD Facil ity:[facility] Start: 12-13-2024 End: 01-08-2025 ambulatory Mercedes P Tao DO Work Phone: Neurology Comment on above: Oxcarbazapine Start: 12-03-2024 End: 12-05-2024 ambulatory Mercedes P Tao DO Work Phone: Neurology Comment on above: Update after Botox Start: 11-25-2024 End: 12-10-2024 Refill Mercedes P Tao DO Work Phone: [facility] [place] Comment on above: Refill Request Start: 11-14-2024 End: 11-14-2024 ambulatory MERCEDES P TAO Facility:[facility] Start: 11-14-2024 End: 11-14-2024 Patient encounter procedure Mercedes P Tao DO Work Phone: Neurology Comment on above: Trigeminal neuralgia ; Trigeminal neuralgia of right side of face Start: 11-06-2024 End: 11-07-2024 Follow-up encounter Dell Pickard DO Work Phone: [facility] [place] Start: 11-05-2024 End: 11-05-2024 ambulatory DELL PICKARD Facility:[facility] Start: 10-24-2024 End: 10-24-2024 Refill Mercedes P Tao DO Work Phone: Neurology Comment on above: Refill Request Start: 10-10-2024 End: 10-10-2024 Refill Mercedes P Tao DO Work Phone: Neurology Comment on above: Refill Request Start: 09-17-2024 End: 10-18-2024 ambulatory Dell Pickard DO Work Phone: [facility] [place] Start: 07-30-2024 End: 07-30-2024 ambulatory MERCEDES TAO Facility:[facility] Start: 07-30-2024 End: 07-30-2024 Patient encounter procedure Mercedes Tao DO Work Phone: Neurology Comment on above: Trigeminal neuralgia of right side of face (Primary Dx); Trigeminal nerve disorder Start: 05-06-2024 End: 05-13-2024 Get Medical Advice Mercedes Tao DO Work Phone: Neurology Comment on above: Medication refill Start: 04-23-2024 End: 04-23-2024 ambulatory MERCEDES TAO Facility:[facility] Start: 04-23-2024 End: 04-23-2024 Patient encounter procedure Mercedes Tao DO Work Phone: Neurology Comment on above: Trigeminal nerve dis order (Primary Dx); Trigeminal neuralgia of right side of face Start: 03-28-2024 End: 04-15-2024 Telephone encounter Mercedes Tao DO Work Phone: [facility] Comment on above: Insurance Authoriz[place] ([place] delayed-Additional information needed/) Start: 03-27-2024 End: 03-27-2024 Patient encounter procedure Dell Jackrison DO Work Phone: [facility] [place] Comment on above: Well adult exam ([facility] Dx); Trigeminal neuralgia of right side of face; Osteopenia of spine; Vitamin B12 deficiency; Iron deficiency anemia, unspecified iron deficiency anemia type; IFG (impaired fasting glucose); Dyslipidemia; Mitral valve insufficiency, acquired; Snoring; Fatigue, unspecified type Start: 03-27-2024 End: 03-27-2024 Patient encounter status Dell Pickard DO Work Phone: [facility] Start: 03-20-2024 Telephone encounter Dell blair DO Work Phone: [facility] [place] Start: 01-30-2024 Telephone encounter Dell lbair DO Work Phone: [facility] [place] Start: 01-29-2024 End: 01-29-2024 Subsequent hospital visit by physician Bone Density [facility] Work Phone: Radiology Comment on above: Disorder of bone and cartilage [M89.9, M94.9] Start: 01-26-2024 End: 01-26-2024 Patient encounter procedure Chasity Ritter DO Work Phone: Vascular Surgery Comment on above: Varicose veins with pain (Primary Dx) Start: 01-12-2024 End: 01-12-2024 Patient encounter procedure Mercedes P Tao DO Work Phone: Neurology Comment on above: Trigeminal neuralgia of right side of face (Primary Dx); Trigeminal nerve disorder Start: 12-27-2023 Refill Mercedes P Tao D O Work Phone: Neurology Comment on above: Refill Request Start: 12-15-2023 End: 12-15-2023 Patient encounter procedure Chasity Ritter DO Work Phone: Vascular Surgery Comment on above: Varicose veins with pain (Primary Dx) Start: 12-08-2023 Refill Stephon Cavazos MD Work Phone: Neurology Comment on above: Refill Request Start: 12-07-2023 ambulatory Mercedes P Tao D O Work Phone: Neurology Comment on above: Botox Start: 11-29-2023 Refill Mercedes P Tao D O Work Phone: Neurology Comment on above: Refill Request Start: 11-17-2023 Get Medical Advice Mercedes P B wilman DO Work Phone: Neurology Comment on above: Refill on Tramadol Start: 11-15-2023 Telephone encounter Chasity Ritter DO Work Phone: Vascular Surgery Comment on above: Scheduling Start: 10-18-2023 ambulatory Dell murguia DO Work Phone: [facility] Start: 08-01-2023 Refill Mercedes P Tao D O Work Phone: Neurology Comment on above: Refill Request Start: 07-14-2023 Telephone encounter Mercedes P Bar on DO Work Phone: [facility] Comment on above: Insurance [place]iz[place] ([place] Delayed - Additional Information Needed) Start: 07-12-2023 ambulatory Mercedes P Tao D O Work Phone: Neurology Comment on above: Botox Start: 07-11-2023 End: 07-11-2023 Patient encounter procedure Chasity Ritter DO Work Phone: Vascular Surgery Comment on above: Varicose veins with pain (Primary Dx) Start: 07-04-2023 End: 07-04-2023 Patient encounter procedure Mercedes P Tao DO Work Phone: Neurology Comment on above: Trigeminal neuralgia of right side of face (Primary Dx) Start: 06-26-2023 Refill Mercedes P Tao D O Work Phone: Neurology Comment on above: Refill Request; Appo intment Start: 06-13-2023 End: 06-13-2023 Patient encounter procedure Chasity Ritter DO Work Phone: Vascular Surgery Comment on above: Varicose veins with pain (Primary Dx) Start: 06-13-2023 Telephone encounter Chasity Ritter DO Work Phone: Vascular Surgery Comment on above: Results Start: 01-24-2023 Refill Mercedes P Tao D O Work Phone: Neurology Comment on above: Refill Request Start: 01-03-2023 End: 01-03-2023 Patient encounter procedure Tawanda Henry MD Work Phone: [facility] Comment on above: Trigeminal neuralgia of right side of face (Primary Dx) Start: 07-28-2022 End: 07-28-2022 Subsequent hospital visit by physician Kirsten [facility] [place] Work Phone: Radiology Comment on above: Painful orthopaedic hardware (HCC) [T84.84XA] Start: 11-29-2021 End: 11-29-2021 Patient encounter procedure MALIK SEO MD [facility] Start: 10-27-2021 End: 10-31-2021 Outreach Lab MALIK SEO MD [facility] Start: 12-12-2016 Patient encounter status Tawanda Henry MD Work Phone: [facility] Work Phone: Start: 06-14-2010 Patient encounter status Tawanda Henry MD Work Phone: [facility] Work Phone: Procedures Date Procedure Procedure Detail Performing Clinician Start: 11-05-2024 Lipid 1996 panel - S saeed or Plasma Dell Pickard DO Work Phone: Start: 03-19-2024 Lipid 1996 panel - S saeed or Plasma Dell Pickard DO Work Phone: Start: 01-29-2024 Dxa bone density june dy 1/> sites axial skel Dell Conde Pickard DO Work Phone: Start: 09-11-2023 Lipid 1996 panel - S saeed or Plasma Dell Pickard DO Work Phone: Start: 03-14-2023 Lipid 1996 panel - S saeed or Plasma Chasity Ritter DO Work Phone: Start: 07-28-2022 Radex foot complete minimum 3 views Bradley Abhay Work Phone: Start: 04-28-2021 Swelling of first metatarsophalangeal joint of hallux (disorder) MALIK SEO MD Comment on above: right foot Start: 01-09-2017 Colonoscopy Tawanda rosado MD Work Phone: Start: 05-11-2016 Mammography Tawanda rosado MD Work Phone: Start: 08-28-2010 Endometrial ablation AM BEULAH SEO MD Start: 08-28-2005 Deliveries by [employer] (finding) MALIK SEO MD Comment on above: 2007 Start: 08-28-1995 Large breast (finding) MALIK SEO MD Plan of Treatment Date Care Activity Detail Author Start: 11-05-2029 Lipid panel Lipid Screening [facility] Start: 03-19-2029 Lipid panel Lipid Screening [facility] Start: 09-11-2028 Lipid panel Lipid Screening [facility] Start: 03-14-2028 Lipid 1996 panel - S saeed or Plasma Lipid Screening [facility] Start: 03-13-2028 Diabetes Screening Diabetes Screenin g [facility] Start: 11-06-2027 Diabetes Screening Diabetes Screenin g [facility] Start: 09-09-2027 LIPID SCREEN LIPID SCREEN [facility] Start: 03-19-2027 Diabetes Screening Diabetes Screenin g [facility] Start: 01-09-2027 Colonoscopy COLONOSCOPY [facility] Start: 01-09-2027 COLORECTAL CANCER SCREENING COLORECTAL CANCER SCREENING [facility] Start: 01-09-2027 Screening for malign ant neoplasm of colon [facility] Start: 09-11-2026 Diabetes Screening Diabetes Screenin g [facility] Start: 03-14-2026 Diabetes Screening Diabetes Screenin g [facility] Start: 12-19-2025 Screening for malign ant neoplasm of breast Mammogram Screening [facility] Start: 09-09-2025 DIABETES SCREEN DIABETES SCREEN [facility] Start: 08-12-2025 End: 08-12-2025 Patient encounter procedure 08/12/2025 10:30 AM EST Office Visit Neurology [address] [place] [address] Mercedes Tao DO [facility] [address] [place] [address] BOTOX FOLLOW UP 4 MONTHS Neurology Comment on above: BOTOX FOLLOW UP 4 MO [facility] Start: 04-28-2025 Influenza vaccination [facility] Start: 04-17-2025 End: 04-17-2025 Patient encounter procedure 04/17/2025 11:00 AM EDT Office Visit Neurology [address] [place] [id number] Mercedes Tao, DO [address] [place] [address] Return in about 3 months (around 02/14/2025) for 3 months botox for trigeminal neuralgia. Neurology Comment on above: Return in about 3 mo nths (around 02/14/2025) for 3 months botox for trigeminal neuralgia. Start: 02-18-2025 End: 05-20-2025 Basic metabolic 2000 panel - Serum or Plasma BASIC METABOLIC PANEL Lab Routine Trigeminal neuralgia Expected: 02/18/2025 (Approximate), Expires: 05/20/2025 [facility] Work Phone: Comment on above: Expected: 02/18/2025 (Approximate), Expires: 05/20/2025 Start: 02-14-2025 End: 02-14-2025 Patient encounter procedure 02/14/2025 10:30 AM EDT Office Visit Neurology [address] [place] [id number] Alta Au APRN.[facility] [address] [place] [address] Return in about 3 months (around 02/14/2025) for 3 months botox for trigeminal neuralgia. Neurology Comment on above: Return in about 3 mo nths (around 02/14/2025) for 3 months botox for trigeminal neuralgia. Start: 01-21-2025 End: 01-21-2025 Patient encounter procedure 01/21/2025 9:30 AM EDT Office Visit General Surgery [address] [place] [address] Stephon Prabhakar MD [address] [place] [address] Hernia [K46.9] General Surgery Comment on above: Hernia [K46.9] Start: 01-16-2025 End: 01-16-2025 Patient encounter procedure Cat Scan Comment on above: Hernia [K46.9] Start: 01-09-2025 End: 03-27-2025 CT Abdomen and Pelvis W contrast IV CT ABD/PEL W IVCON Radiology Routine Hernia Expected: 01/09/2025, Expires: 03/27/2025 [facility] Work Phone: Comment on above: Expected: 01/09/2025 , Expires: 03/27/2025 Start: 01-08-2025 End: 01-08-2025 Patient encounter procedure 01/08/2025 9:20 AM EDT Office Visit [facility] [place] [address] [place], [place] [id number] Ai Schmitz APRN.AUTHORIZATION REP [address] [place], [place] [phone] Trigeminal pain, night sweats, possible hernia. [facility] [place] Comment on above: Trigeminal pain, nig ht sweats, possible hernia. Start: 12-19-2024 End: 12-19-2024 Patient encounter procedure 12/19/2024 9:30 AM EDT Appointment Mammogram [address] [place], [place] [phone] Mammogram Start: 11-14-2024 End: 11-14-2024 Patient encounter procedure 11/14/2024 10:30 AM EDT Office Visit Neurology [address] [place] [id number] Mercedes Tao, DO [address] [place] [address] Return in about 3 months (around 10/28/2024) for Botox 3 months with me for trigeminal neuralgia. Neurology Comment on above: Return in about 3 mo nths (around 10/28/2024) for Botox 3 months with me for trigeminal neuralgia. Start: 09-27-2024 End: 12-27-2024 25-hydroxyvitamin D3 [Mass/volume] in Serum or Plasma VITAMIN D 25 HYDROXY Lab Routine Osteopenia of spine Expected: 09/27/2024, Expires: 12/27/2024 [facility] Comment on above: Expected: 09/27/2024 , Expires: 12/27/2024 Start: 09-27-2024 End: 12-27-2024 CBC panel - Blood by Automated count COMPLETE BLOOD COUNT Lab Routine Trigeminal neuralgia of right side of face Expected: 09/27/2024, Expires: 12/27/2024 [facility] Comment on above: Expected: 09/27/2024 , Expires: 12/27/2024 Start: 09-27-2024 End: 12-27-2024 Comprehensive metabolic 2000 panel - Serum or Plasma COMPREHENSIVE METABOLIC PANEL Lab Routine Trigeminal neuralgia of right side of face Expected: 09/27/2024, Expires: 12/27/2024 [facility] Comment on above: Expected: 09/27/2024 , Expires: 12/27/2024 Start: 09-27-2024 End: 12-27-2024 Hemoglobin A1c in Blood HEMOGLOBIN A1C Lab Routine IFG (impaired fasting glucose) Expected: 09/27/2024, Expires: 12/27/2024 [facility] Work Phone: Comment on above: Expected: 09/27/2024 , Expires: 12/27/2024 Start: 09-27-2024 End: 12-27-2024 Lipid 1996 panel - Serum or Plasma LIPID PANEL BASIC Lab Routine Dyslipidemia Expected: 09/27/2024, Expires: 12/27/2024 [facility] Comment on above: Expected: 09/27/2024 , Expires: 12/27/2024 Start: 09-27-2024 End: 12-27-2024 Thyrotropin [Units/volume] in Serum or Plasma THYROID STIMULATING HORMONE Lab Routine Osteopenia of spine Expected: 09/27/2024, Expires: 12/27/2024 [facility] Comment on above: Expected: 09/27/2024 , Expires: 12/27/2024 Start: 07-30-2024 End: 07-30-2024 Patient encounter procedure 07/30/2024 11:00 AM EST Office Visit Neurology [facility] [address] [address] Mercedes Tao, DO [address] [place] [address] eturn in about 3 months (around 07/24/2024) for 3 months botox.Check out comments:3 months botox with me for trigeminal neuralgia Neurology Comment on above: eturn in about 3 mon ths (around 07/24/2024) for 3 months botox.Check out comments:3 months botox with me for trigeminal neuralgia Start: 05-12-2024 HPV TESTING HPV TESTING [facility] Start: 05-12-2024 PAP TESTING PAP TESTING [facility] Start: 05-12-2024 Screening for malign ant neoplasm of cervix [facility] Start: 04-28-2024 Covid-19 Vaccine ( season) Covid-19 Vaccine () [facility] Start: 04-28-2024 Covid-19 Vaccine () Covid-19 Vaccine () [facility] Start: 04-28-2024 Influenza vaccination [facility] Start: 04-23-2024 End: 04-23-2024 Patient encounter procedure 04/23/2024 11:00 AM EDT Office Visit Neurology [facility] [address] [address] Mercedes Tao, DO [address] [place] [address] BOTOX Neurology Comment on above: BOTOX Start: 03-27-2024 End: 03-27-2024 Patient encounter procedure 03/27/2024 8:20 AM EDT Office Visit [facility] [place] [address] [place], [place] [id number] Dell Pickard DO [address] [place] [address] physical [facility] [place] Comment on above: physical Start: 03-21-2024 Covid-19 Vaccine (#1) Covid-19 Vacci ne (#1) [facility] Comment on above: Postponed from 11/22 (Declined at this time) Start: 03-19-2024 End: 03-19-2024 ambulatory 03/19/2024 8:30 AM EDT Results Only [place] COUNTS INCLUDE [facility] BEDS AT THE [facility] Draw Station [address] [place] [address] [place] [facility] 234 BEDS AT THE [facility] Draw Station Start: 02-25-2024 Influenza vaccination Influenza Vacc ine (#1) [facility] Comment on above: Postponed from 04/28 (Declined at this time) Start: 01-29-2024 End: 01-29-2024 Patient encounter procedure 01/29/2024 9:30 AM EDT Appointment Radiology [address] [place] [id number] Disorder of bone and cartilage [M89.9, M94.9]; Osteopenia of spine [M85.88] Radiology Comment on above: Disorder of bone and cartilage [M89.9, M94.9]; Osteopenia of spine [M85.88] Start: 01-26-2024 End: 01-26-2024 Patient encounter procedure 01/26/2024 9:00 AM EDT Office Visit Vascular Surgery [address] [address] Chasity Ritter, DO [address] [place] [address] [facility] Comment on above: [facility] Start: 01-12-2024 End: 01-12-2024 Patient encounter procedure 01/12/2024 11:30 AM EDT Office Visit Neurology [address] [place] [id number] Mercedes Tao, DO [address] [place], [place] [phone] BOTOX Neurology Comment on above: BOTOX Start: 04-28-2023 Covid-19 Vaccine ( season) Covid-19 Vaccine ( season) [facility] Start: 04-28-2023 Influenza vaccination C [facility] Start: 01-10-2023 COVID-19 VACCINE (#1) COVID-19 VACCI NE (#1) [facility] Comment on above: Postponed from 11/22 (Declined at this time) Start: 05-12-2022 Screening for malign ant neoplasm of cervix Cervical Cancer Screening [facility] Start: 2020 Pneumococcal Vaccine : 50+ (1 of 1 - PCV) Pneumococcal Vaccine: 50+ (1 of 1 - PCV) [facility] Start: 2020 SHINGRIX VACCINE (1 of 2) SHINGRIX VACCINE (1 of 2) [facility] Start: 05-11-2017 Mammography [facility] Start: 05-11-2017 Screening for malign ant neoplasm of breast Mammogram Screening [facility] Start: 2015 COLOGUARD (FIT-DNA) COLOGUARD (FIT-D NA) [facility] Start: [address] COLONOGRAPHY [facility] Start: 2015 FECAL OCCULT BLOOD FECAL OCCULT BLOO D [facility] Start: 2015 Screening for malign ant neoplasm of colon [facility] Start: 2015 SIGMOIDOSCOPY [facility] Start: 08-29-2007 Urine microalbumin profile [facility] Start: 1989 Hepatitis A Vaccine (1 of 2 - Risk 2-dose series) Hepatitis A Vaccine (1 of 2 - Risk 2-dose series) [facility] Start: 1989 Hepatitis B Vaccine (1 of 3 - 19+ 3-dose series) Hepatitis B Vaccine (1 of 3 - 19+ 3-dose series) [facility] Start: 1988 Anxiety Screening Anxiety Screening [facility] Start: 1988 Depression Screening Depression Scre [facility] Start: 1988 HEPATITIS C SCREENING HEPATITIS C [facility] Start: 1988 Hepatitis C screening Hepatitis C [facility] Start: 1988 HIV SCREENING HIV SCREENING [facility] Start: 1988 HIV screening HIV Screening [facility] Start: 1971 HEPATITIS A (1 of 2 - Risk 2-dose series) HEPATITIS A (1 of 2 - Risk 2-dose series) [facility] Start: 1970 COVID-19 VACCINE (#1) COVID-19 VACCI NE (#1) [facility] Start: 1970 HEPATITIS B (1 of 3 - 3-dose series) HEPATITIS B (1 of 3 - 3-dose series) [facility] Start: 1970 Hepatitis B Vaccine (1 of 3 - 3-dose series) Hepatitis B Vaccine (1 of 3 - 3-dose series) [facility] End: 10-17-2025 DBT Breast - bilateral screening RHEA SCREENING [facility] Radiology Routine Encounter for screening mammogram for breast cancer 1 Occurrences starting 09/17/2024 until 10/17/2025 [facility] Work Phone: Comment on above: 1 Occurrences starti ng 09/17/2024 until 10/17/2025 End: 11-16-2024 MG Breast Screening RHEA SCREENING Radiology Routine Encounter for screening mammogram for breast cancer 1 Occurrences starting 10/18/2023 until 11/16/2024 [facility] Work Phone: Comment on above: 1 Occurrences starti ng 10/18/2023 until 11/16/2024 [facility] Immunizations Immunization Date Immunization Notes Care Provider Fa [facility] 08-28-2007 tetanus and diphther ia toxoids, adsorbed, preservative free, for adult use (2 Lf of tetanus toxoid and 2 Lf of diphtheria toxoid) Tawanda Henry MD Work Phone: [facility] Work Phone: Payers Date Payer Category Payer Medicaid [id number] 2018 Medicaid [id number] 1970 Unknown [id number] Social History Date Type Detail Facility Start: 10-26-2021 End: 03-24-2025 Never smoked tobacco (finding) [facility] Start: 1970 Sex Assigned At Female A [facility] Start: 06-07-2022 Tobacco use and exposure Smoke less tobacco non-user [facility] Start: 01-03-2023 End: 01-27-2025 Alcohol intake Current drinker of alcohol (finding) [facility] Start: 08-18-2021 Alcohol Comment occassional [facility] Start: 01-03-2023 End: 05-09-2023 History of Social function [facility] Work Phone: Start: 01-03-2023 End: 05-09-2023 Tobacco use panel [facility] Work Phone: Start: 07-29-2012 Adult Depression Screening Assessment 0 [facility] Work Phone: Start: 04-26-2021 Gender identity Choose not to disclo se [facility] Has the [employer], [employer], [employer], or water company threatened to shut off services in your home in past 12Mo No [facility] Are you now , , , , never or living with a partner? [facility] How often to you hav e a drink containing alcohol? 2-3 time sa week [facility] How many standard dr inks containing alcohol do you have on a typical day? 1 or 2 [facility] How often do you hav e 6 or more drinks on 1 occasion? Never [facility] How hard is it for y ou to pay for the very basics like food, housing, medical care, and heating Somewhat hard [facility] Do you feel stress - tense, restless, nervous, or anxious, or unable to sleep at night because your mind is troubled all the time - these days [OSQ] To some extent [facility] (I/We) worried jamil er (my/our) food would run out before (I/we) got money to buy more. Never true [facility] Start: 07-18-2022 End: 07-28-2022 Exposure to SARS-CoV-2 (event) Not sure [facility] Sexual O[facility] Start: 10-18-2018 Sex Female (finding) [facility] Medical Equipment Procedure Code Equipment Code Equipment Origin al Text Equipment Identifier Dates Substitute Proge nix Plus Demineralized Bone Matrix Bone Graft 1ml - [id number] Start: 05-07-2021 Prostep Rita Scr ew 3mm X 30mm [id number] Start: 05-07-2021 Goals Date Patient Goal Desired Activity /State Personal health goal Functional Status Date Assessment Result Facility 09-08-2014 Are you deaf, or do you have serious difficulty hearing No 09/08/2014 2:42 PM Dafne Boyce LPN No [facility] 09-08-2014 Are you blind, or do you have serious difficulty seeing, even when wearing glasses No 09/08/2014 2:42 PM Dafne Boyce LPN No [facility] 09-08-2014 Do you have serious difficulty walking or climbing stairs Yes 09/08/2014 2:42 PM Dafne Boyce LPN Yes [facility] 09-08-2014 Do you have difficul ty dressing or bathing Yes 09/08/2014 2:42 PM Dafne Boyce LPN Yes [facility] 09-08-2014 Because of a physica l, mental, or emotional condition, do you have difficulty doing errands alone such as visiting a physician's office or shopping No 09/08/2014 2:42 PM Dafne Boyce LPN No [facility] Mental Status Date Assessment Result Facility 09-08-2014 Because of a physica l, mental, or emotional condition, do you have serious difficulty concentrating, remembering, or making decisions No 09/08/2014 2:42 PM Dafne Boyce LPN No [facility] Clinical Notes 05-07-2021 to 04-17-2025 Mercedes Tao DO - 04/17/2025 11:11 AM EDTTelephone Encounter - Marti Pichardo - 03/17/2025 1:45 PM EDTTelephone Encounter - Marti Pichardo - 03/17/2025 1:45 PM EDTPatient InstructionsLaboratory Note Date & Type Note Facility 04-17-2025 Note HNO ID: [id number] Author: MERCEDES TAO DO Service: ? Author Type: Physician Type: Progress Notes Filed: 04/17/2025 12:56 Note Text: Headache Center - Botox Follow-up Visit ASSESSMENT: 54 yof with history significant for rare migraine without aura (1/year), with R V2-3 trigeminal neuralgia. Neurosurgery recommended MVD given the classical nature of the pain and visualized arterial loop touching the trigeminal nerve on imaging, so this is an option if things are not improving. We are using Botox for her R trigeminal nerve disorder, which she has been responding to very well. PLAN: (Please see typed patient instructions for detailed instructions) ---> Acute Treatment: -Tramadol vs. Baclofen prn breakthrough pain until preventive therapy starts helping. ---> Preventive Treatment: -OXC 450 mg bid. Labs normal recently. -Botox today in much more limited pattern and will do symmetrically (45 units total instead of 100 units as we did last time, although that worked very well). ---> Follow-up: 4 months for Botox. Last Visit: 11/14/24 Interval Headache Hx: Did well after last treatments, which was almost 6 months ago. Has had a bit more pain intermittently in more limited areas lateral to R nose and anterior to R ear. Interested in doing a more limited pattern to lessen potential for asymmetry and since pain has not been bad. HEADACHE SCORES: 09/05/2023 Headache Questions Days per month with mild/moderate face pain: 15 Days per month with severe face pain: 10 PRN medication usage in the last month: 30 09/05/2023 GE - 2/7 SCORES EG-2 Score 2 09/05/2023 PHQ-9 Score 1 Data saved with a previous flowsheet row definition BP 111/75 Pulse 67 Wt 49.4 kg (109 lb) LMP 08/08/2022 (Approximate) BMI 19.62 kg/m? Patient name: Cecilia Patel : 1970 ALLERGIES Allergen Reactions Carbamazepine Hives Cats Intolerance Seasonal Allergies Intolerance UNIVERSAL PROTOCOL / SAFETY CHECKLIST Procedure to be Performed: Botox Sign In: A Moment of CARE was completed. Personnel directly involved with the procedure wore the appropriate PPE (Personal Protective Equipment). Patient/Surrogate Stated/Verified: PATIENT VERIFIED(optional for EMERGENT procedures): Patient name, Date of , Relevant allergies, and The intended procedure Time Out Communication: Intended patient and procedure match the source documents. Consent documented and matches the intended procedure. Sign Out: SIGN OUT (optional for EMERGENT procedures): No specimen collected. Mercedes Tao DO UNIVERSAL PROTOCOL / SAFETY CHECKLIST Procedure: Botox for R V2>3 trigeminal neuralgia Informed Consent Consent Obtained: Written [place] Protocol A moment to CARE was completed SIGN IN Personnel directly involved with the procedure wore the appropriate PPE Special Equipment: N/A Patient/Surrogate Stated/Verified: Patient name, Date of , Relevant allergies and Intended procedure TIME OUT No relevant labs, photos, and/or imaging studies were applicable for review. Consent documented and matches the intended procedure No correct side/site applicable for marking and visibility. No medications required for procedure. No fire risk assessment and interventions applicable. No implant(s) inserted. SIGN OUT No specimen collected. Written Consent Obtained: Written I have reviewed the Lit Status Assessment responses and discussed these with the patient: yes The risks, benefits and anticipated outcomes of the procedure, the risks and benefits of the alternatives to the procedure, and the roles and tasks of the personnel to be involved, were discussed with the patient, and the patient consents to the procedure and agrees to proceed. Informed consent signed. UNIVERSAL PROTOCOL / SAFETY CHECKLIST Procedure to be performed: BOTOX for trigeminal neuralgia in the R V2>3 distribution (injections performed bilateral for muscle symmetry) Sign in Communication: completed Time Out: Team Confirms the Correct Patient, Correct Procedure, Correct Site and Site Marking, Correct Position (if applicable). Time: 1115 Affirmation of Time Out: completed Sign Out Discussion: completed 100 units of Botox A (lot # [id number] expiration date 06/2027) was diluted in 2 cc normal saline. Botox Sites: Units used: 45 Units wasted: 55 Mercedes Tao DO [facility] [place] Department [facility] [address] [place] [address] Pager [phone] Prior Therapies Duration of Use Dose Side effect Analgesic Diclofenac (Voltaren, Cataflam, Cambia) Hydrocodone/Acetaminophen (Vicodin, [place]) Hydromorphone (Dilaudid) Ketorolac (Toradol) Meloxica (more content not included)... [facility] 04-17-2025 History of Present illness Narrative Images from the original note were not included. Headache Center - Botox Follow-up Visit ASSESSMENT: 54 yof with history significant for rare migraine without aura (1/year), with R V2-3 trigeminal neuralgia. Neurosurgery recommended MVD given the classical nature of the pain and visualized arterial loop touching the trigeminal nerve on imaging, so this is an option if things are not improving. We are using Botox for her R trigeminal nerve disorder, which she has been responding to very well. PLAN: (Please see typed patient instructions for detailed instructions) ---> Acute Treatment: -Tramadol vs. Baclofen prn breakthrough pain until preventive therapy starts helping. ---> Preventive Treatment: -OXC 450 mg bid. Labs normal recently. -Botox today in much more limited pattern and will do symmetrically (45 units total instead of 100 units as we did last time, although that worked very well). ---> Follow-up: 4 months for Botox. Last Visit: 11/14/24 Interval Headache Hx: Did well after last treatments, which was almost 6 months ago. Has had a bit more pain intermittently in more limited areas lateral to R nose and anterior to R ear. Interested in doing a more limited pattern to lessen potential for asymmetry and since pain has not been bad. HEADACHE SCORES: 09/05/2023 Headache Questions Days per month with mild/moderate face pain: 15 Days per month with severe face pain: 10 PRN medication usage in the last month: 30 09/05/2023 GE - 2/7 SCORES GE-2 Score 2 09/05/2023 PHQ-9 Score 1 Data saved with a previous flowsheet row definition BP 111/75 Pulse 67 Wt 49.4 kg (109 lb) LMP 08/08/2022 (Approximate) BMI 19.62 kg/m Patient name: Cecilia Patel : 1970 ALLERGIES Allergen Reactions Carbamazepine Hives Cats Intolerance Seasonal Allergies Intolerance UNIVERSAL PROTOCOL / SAFETY CHECKLIST Procedure to be Performed: Botox Sign In: A Moment of CARE was completed. Personnel directly involved with the procedure wore the appropriate PPE (Personal Protective Equipment). Patient/Surrogate Stated/Verified: PATIENT VERIFIED(optional for EMERGENT procedures): Patient name, Date of , Relevant allergies, and The intended procedure Time Out Communication: Intended patient and procedure match the source documents. Consent documented and matches the intended procedure. Sign Out: SIGN OUT (optional for EMERGENT procedures): No specimen collected. Mercedes Tao DO UNIVERSAL PROTOCOL / SAFETY CHECKLIST Procedure: Botox for R V2>3 trigeminal neuralgia Informed Consent Consent Obtained: Written [place] Protocol A moment to CARE was completed SIGN IN Personnel directly involved with the procedure wore the appropriate PPE Special Equipment: N/A Patient/Surrogate Stated/Verified: Patient name, Date of , Relevant allergies and Intended procedure TIME OUT No relevant labs, photos, and/or imaging studies were applicable for review. Consent documented and matches the intended procedure No correct side/site applicable for marking and visibility. No medications required for procedure. No fire risk assessment and interventions applicable. No implant(s) inserted. SIGN OUT No specimen collected. Written Consent Obtained: Written I have reviewed the Lit Status Assessment responses and discussed these with the patient: yes The risks, benefits and anticipated outcomes of the procedure, the risks and benefits of the alternatives to the procedure, and the roles and tasks of the personnel to be involved, were discussed with the patient, and the patient consents to the procedure and agrees to proceed. Informed consent signed. UNIVERSAL PROTOCOL / SAFETY CHECKLIST Procedure to be performed: BOTOX for trigeminal neuralgia in the R V2>3 distribution (injections performed bilateral for muscle symmetry) Sign in Communication: completed Time Out: Team Confirms the Correct Patient, Correct Procedure, Correct Site and Site Marking, Correct Position (if applicable). Time: 1115 Affirmation of Time Out: completed Sign Out Discussion: completed 100 units of Botox A (lot # [id number] expiration date 06/2027) was diluted in 2 cc normal saline. Botox Sites: Units used: 45 Units wasted: 55 Mercedes Tao DO [facility] [place] Department [facility] [address] [place] [address] Pager [phone] Prior Therapies Duration of Use Dose Side effect Analgesic Diclofenac (Voltaren, Cataflam, Cambia) Hydrocodone/Acetaminophen (Vicodin, [place]) Hydromorphone (Dilaudid) Ketorolac (Toradol) Meloxicam (Mobic) Meperidine (Demerol) Oxycodone/Acetaminophen (Percocet) Tramadol (Ultram) Anti-Anxiety Lorazepam (Ativan) Anti-Convulsant Carbamazepine (Tegretol) Gabapentin (Neurontin) Anti-Depressant and Antipsychotic Duloxetine (Cymbalta) Antiemetics Ondansetron Promethazine Anti-Migraine Sumatriptan (Imitrex, [place]) Botulinum Toxin Onabotulinum Toxin A (Botox) for trigeminal neuralgia Muscle Relaxer Baclofen (Lioresal) Cyclobenzaprine (Flexeril) Other Medications Dexamethasone (Decadron) Methylprednisolone (Medrol) Prednisone Over the Counter Medications Acetaminophen (Tylenol) Acetaminophen/Aspirin/Caffeine (Excedrin, Goody s) Aspirin Ibuprofen (Advil, Motrin) Naproxen sodium (Aleve) Mercedes Tao DO PMH: PAST MEDICAL HISTORY Diagnosis Date Allergic rhinitis Heart murmur IFG (impaired fasting glucose) 02/2023 Migraine headache only have had 1-2 in her life per pt Osteopenia of spine 12/2021 PONV (postoperative nausea and vomiting) Trigeminal neuralgia of right side of face 10/2015 SOC: Social History Tobacco Use Smoking status: Never Smokeless tobacco: Never Vaping Use Vaping status: Never Used Substance Use Topics Alcohol use: Yes Comment: occassional Drug use: Not Currently Types: Marijuana MEDS: Current Outpatient Medications Medication Sig estradiol (MINIVELLE, VIVELLE-DOT) 0.025 mg/24 hr patch apply ONE PATCH topically twice WEEKLY progesterone micronized (PROMETRIUM) 100 mg capsule Take 200 mg by mouth daily at bedtime. OXcarbazepine (TRILEPTAL) 150 mg tablet Take 3 tablets by mouth two times a day. traMADol (ULTRAM) 50 mg tablet Take 1 tablet by mouth once daily as needed for pain for up to 30 days. OXcarbazepine (TRILEPTAL) 150 mg tablet Take 1 tablet by mouth two times a day. baclofen 10 mg tablet Take 1 tablet by mouth three times a day as needed (facial pain). cyanocobalamin (VITAMIN B-12) 1,000 mcg tab Take 2 tablets by mouth once daily. Ferrous Sulfate (SLOW FE) 142 mg (45 mg iron) TbER Take 1 tablet by mouth twice daily. With food, iron supplement LORazepam (ATIVAN) 0.5 mg Take 0.25 mg by mouth. ascorbic acid, vitamin C, (VITAMIN C) 250 mg tablet Take 1 tablet by mouth once daily. Cholecalciferol, Vitamin D3, (VITAMIN D-3) 50 mcg (2,000 unit) cap Take 1 capsule by mouth once daily. Biotin 10,000 mcg cap Take 1 capsule by mouth once daily. Zinc Sulfate 25 mg zinc (110 mg) tab Patient takes 22.5 mg daily Herbal Drugs tab Magnesium 50 mg daily No current facility-administered medications for this visit. REVIEW OF SYSTEMS: Review of system : unchanged from the previous visit (sleep patterns, mood, energy, appetite, stress, exercising). Physical Examination: BP 111/75 Pulse 67 Wt 49.4 kg (109 lb) LMP 08/08/2022 (Approximate) BMI 19.62 kg/m GEN: Alert. NAD. Normal affect. Cooperative. NEUROLOGICAL: A+O x 3. Attentive. Thought process and content unremarkable. Follows commands appropriately. Speech fluent. Mercedes Tao DO [facility] [place] Department [facility] [address] [place] [address], [place] [phone] Level of service: Est level 3 (20-29 min). Time spent 25 min on the day of service, which included preparing to see the patient, [id number] patient care, completing clinical documentation, obtaining and/or reviewing separately obtained history, performing a medically appropriate examination, counseling and educating the patient/family/caregiver, ordering medications, tests, or procedures, and communicating with other HCPs (not separately reported). Medical Decision Making: Medical Decision Making Level: 1 - N/A cc: Dell Pickard [address] [place] [address] documented in this encounter [facility] 03-17-2025 Telephone encounter Note Physician: Tao Call from patient requesting refill. Please E-Scribe Last office visit 11/14/24 with Tao in person Next office visit 04/17/25 with Tao in person Patient stated she is taking 450mg at night and 350 during the day for the Oxcarbazepine Requested Prescriptions Pending Prescriptions Disp Refills OXcarbazepine (TRILEPTAL) 150 mg tablet 180 tablet 1 Sig: Take 3 tablets twice daily. traMADol (ULTRAM) 50 mg tablet 30 tablet 0 Sig: Take 1 tablet by mouth once daily as needed for pain for up to 30 days. Pharmacy Name: [facility] 03-17-2025 Miscellaneous Notes Physician: Tao Call from patient requesting refill. Please E-Scribe Last office visit 11/14/24 with Tao in person Next office visit 04/17/25 with Tao in person Patient stated she is taking 450mg at night and 350 during the day for the Oxcarbazepine Requested Prescriptions Pending Prescriptions Disp Refills OXcarbazepine (TRILEPTAL) 150 mg tablet 180 tablet 1 Sig: Take 3 tablets twice daily. traMADol (ULTRAM) 50 mg tablet 30 tablet 0 Sig: Take 1 tablet by mouth once daily as needed for pain for up to 30 days. Pharmacy Name: [facility] documented in this encounter [facility] 01-30-2025 Telephone encounter Note Physician: Tao Call from patient requesting refill. Please E-Scribe Last office visit 11/14/24 with Tao in person Next office visit 02/14/25 with Angely in person Requested Prescriptions Pending Prescriptions Disp Refills traMADol (ULTRAM) 50 mg tablet 30 tablet 0 Sig: Take 1 tablet by mouth once daily as needed for pain for up to 30 days. Pharmacy Name: [facility] 01-30-2025 Miscellaneous Notes Physician: Tao Call from patient requesting refill. Please E-Scribe Last office visit 11/14/24 with Tao in person Next office visit 02/14/25 with Angely in person Requested Prescriptions Pending Prescriptions Disp Refills traMADol (ULTRAM) 50 mg tablet 30 tablet 0 Sig: Take 1 tablet by mouth once daily as needed for pain for up to 30 days. Pharmacy Name: [facility] documented in this encounter [facility] 01-29-2025 Telephone encounter Note Pt was notified of such. [facility] 01-29-2025 Miscellaneous Notes Pt was notified of such. The last refill was approved, but patient was told further management of pain medication has to be from a specialist, either pain management or the neurologist. Prescription Refill Information The patient has been identified by name and date of : Yes Caregiver verified no other encounters exist for this prescription request: Yes Caregiver confirmed with patient/requestor that no other refills are due, in the near future, with this provider at this time: Yes The last office visit in the department: 01/08/25 Does the patient have a future office visit with this provider/department: No Requested Prescriptions Pending Prescriptions Disp Refills traMADol (ULTRAM) 50 mg tablet 30 tablet 0 Sig: Take 1 tablet by mouth once daily as needed for pain for up to 30 days. Laura Urbina LPN January 29, 2025 1:55 PM documented in this encounter [facility] 01-29-2025 Telephone encounter Note The last refill was approved, but patient was told further management of pain medication has to be from a specialist, either pain management or the neurologist. [facility] 01-29-2025 Telephone encounter Note Prescription Refill Information The patient has been identified by name and date of : Yes Caregiver verified no other encounters exist for this prescription request: Yes Caregiver confirmed with patient/requestor that no other refills are due, in the near future, with this provider at this time: Yes The last office visit in the department: 01/08/25 Does the patient have a future office visit with this provider/department: No Requested Prescriptions Pending Prescriptions Disp Refills traMADol (ULTRAM) 50 mg tablet 30 tablet 0 Sig: Take 1 tablet by mouth once daily as needed for pain for up to 30 days. Laura Urbina LPN January 29, 2025 1:55 PM [facility] 01-28-2025 Note HNO ID: [id number] Author: STEPHON PRABHAKAR MD Service: ? Author Type: Physician Type: Progress Notes Filed: 01/28/2025 13:53 Note Text: HISTORY AND PHYSICAL Cecilia Patel 1970 REFERRING PHYSICIAN: Gissell Fontenot AP* CHIEF COMPLAINT: Consult HPI: The patient is a 54 year old adult with a complaint of a bulge and discomfort in the right inguinal area. Patient has had a CAT scan of the abdomen pelvis which really did not show this area whatsoever. But when she stands she notices that this bulges out in this area and it right in the right inguinal area close to her Pfannenstiel incision. She has had some minor discomfort in this area. It always reduces when she lies down.. The patient is being seen by me today at the request of Dr. Fontenot for my opinion and advice regarding Hernia Right inguinal hernia (primary encounter diagnosis). PAST MEDICAL HISTORY Diagnosis Date Allergic rhinitis Heart murmur IFG (impaired fasting glucose) 02/2023 Migraine headache only have had 1-2 in her life per pt Osteopenia of spine 12/2021 PONV (postoperative nausea and vomiting) Trigeminal neuralgia of right side of face 10/2015 PAST SURGICAL HISTORY Procedure Laterality Date BREAST AUGMENTATION W/PROSTHETIC IMPLANT 1995 CORRECTION OF BUNION Right LIG/TRNSXJ FLP TUBE ABDL/VAG APPR UNI/BI Tubal ligation PAST SURGICAL HISTORY OF 2005, 2008 x , [place] (first emergency) Current Outpatient Medications Medication Sig traMADol (ULTRAM) 50 mg tablet Take 1 tablet by mouth once daily as needed for pain for up to 30 days. OXcarbazepine (TRILEPTAL) 150 mg tablet Take 3 tablets twice daily. (Patient taking differently: Take 450 mg by mouth two times a day. Take 3 tablets twice daily.) baclofen 10 mg tablet Take 1 tablet by mouth three times a day as needed (facial pain). cyanocobalamin (VITAMIN B-12) 1,000 mcg tab Take 2 tablets by mouth once daily. Ferrous Sulfate (SLOW FE) 142 mg (45 mg iron) TbER Take 1 tablet by mouth twice daily. With food, iron supplement ascorbic acid, vitamin C, (VITAMIN C) 250 mg tablet Take 1 tablet by mouth once daily. Cholecalciferol, Vitamin D3, (VITAMIN D-3) 50 mcg (2,000 unit) cap Take 1 capsule by mouth once daily. Biotin 10,000 mcg cap Take 1 capsule by mouth once daily. Zinc Sulfate 25 mg zinc (110 mg) tab Patient takes 22.5 mg daily Herbal [facility] tab Magnesium 50 mg daily OXcarbazepine (TRILEPTAL) 150 mg tablet Take 1 tablet by mouth two times a day. LORazepam (ATIVAN) 0.5 mg Take 0.25 mg by mouth. No current facility-administered medications for this visit. ALLERGIES: Carbamazepine, Cats, and Seasonal Allergies PERSONAL HISTORY: Social History Tobacco Use Smoking status: Never Smokeless tobacco: Never Vaping Use Vaping status: Never Used Substance Use Topics Alcohol use: Yes Comment: occassional Drug use: Not Currently Types: Marijuana FAMILY HISTORY: FAMILY HISTORY Problem Relation Age of Onset Hypertension Mother Coronary Artery Disease Father age 50 Migraines Sister Lipids Sister Hypertension Sister Migraines Sister No Known Problems Brother Osteoporosis Maternal Grandmother No Known Problems Maternal Grandfather Osteoporosis Paternal Grandmother No Known Problems Paternal Grandfather Osteoporosis Maternal Aunt Lipids Paternal Aunt REVIEW OF SYMPTOMS: The review of systems data was entered by the nurse and reviewed by me There are no exam notes on file for this visit. PHYSICAL EXAMINATION: General: The patient is 54 year old adult, well nourished, well hydrated in no acute distress. The patient is oriented to time, place, and person. VITALS: Blood pressure 120/80, pulse 100, temperature 36.9 ?C (98.5 ?F), temperature source Temporal, resp. rate 12, height 158.8 cm (5' 2.5), weight 47.6 kg (105 lb), last menstrual period 08/08/2022, SpO2 98%. HEENT: Normal cephalic, ataumatic, pupils are equally round, sclera are anicteric, mucous membranes are moist, oropharynx is clear. Neck has no masses, asymmetry or lymphadenopathy. Thyroid is unremarkable. Respiratory: Clear to auscultation and percussion. Normal respiratory excursion and pattern. Cardiac: Examination is regular rate and rhythm. Abdominal exam: Soft, nontender, with no palpable masses. No hepatosplenomegaly. No palpable hernias. Rectal exam: exam deferred Extremities: no clubbing, cyanosis or edema. No adenopathy. Other: Right inguinal area shows a reducible inguinal hernia when she is standing. There is generalized weakness in this area. I do not really think this is an incisional hernia but it is also close to her Pfannenstiel incision. LABORATORY VALUES: As Noted RADIOLOGIC STUDIES: As Noted Assessment IMPRESSION: Hernia Right inguinal hernia (primary encounter diagnosis) PLAN: She does not want anything done to this as of yet she is going to come back and see me sometime in Decemb (more content not included)... [facility] 01-28-2025 History of Present illness Narrative HISTORY AND PHYSICAL Cecilia D Jorge 1970 REFERRING PHYSICIAN: Gissell Fontenot AP* CHIEF COMPLAINT: Consult HPI: The patient is a 54 year old adult with a complaint of a bulge and discomfort in the right inguinal area. Patient has had a CAT scan of the abdomen pelvis which really did not show this area whatsoever. But when she stands she notices that this bulges out in this area and it right in the right inguinal area close to her Pfannenstiel incision. She has had some minor discomfort in this area. It always reduces when she lies down.. The patient is being seen by me today at the request of Dr. Fontenot for my opinion and advice regarding Hernia Right inguinal hernia (primary encounter diagnosis). PAST MEDICAL HISTORY Diagnosis Date Allergic rhinitis Heart murmur IFG (impaired fasting glucose) 02/2023 Migraine headache only have had 1-2 in her life per pt Osteopenia of spine 12/2021 PONV (postoperative nausea and vomiting) Trigeminal neuralgia of right side of face 10/2015 PAST SURGICAL HISTORY Procedure Laterality Date BREAST AUGMENTATION W/PROSTHETIC IMPLANT 1995 CORRECTION OF BUNION Right LIG/TRNSXJ FLP TUBE ABDL/VAG APPR UNI/BI Tubal ligation PAST SURGICAL HISTORY OF 2005, 2007 x , [place] (first emergency) Current Outpatient Medications Medication Sig traMADol (ULTRAM) 50 mg tablet Take 1 tablet by mouth once daily as needed for pain for up to 30 days. OXcarbazepine (TRILEPTAL) 150 mg tablet Take 3 tablets twice daily. (Patient taking differently: Take 450 mg by mouth two times a day. Take 3 tablets twice daily.) baclofen 10 mg tablet Take 1 tablet by mouth three times a day as needed (facial pain). cyanocobalamin (VITAMIN B-12) 1,000 mcg tab Take 2 tablets by mouth once daily. Ferrous Sulfate (SLOW FE) 142 mg (45 mg iron) TbER Take 1 tablet by mouth twice daily. With food, iron supplement ascorbic acid, vitamin C, (VITAMIN C) 250 mg tablet Take 1 tablet by mouth once daily. Cholecalciferol, Vitamin D3, (VITAMIN D-3) 50 mcg (2,000 unit) cap Take 1 capsule by mouth once daily. Biotin 10,000 mcg cap Take 1 capsule by mouth once daily. Zinc Sulfate 25 mg zinc (110 mg) tab Patient takes 22.5 mg daily Herbal Drugs tab Magnesium 50 mg daily OXcarbazepine (TRILEPTAL) 150 mg tablet Take 1 tablet by mouth two times a day. LORazepam (ATIVAN) 0.5 mg Take 0.25 mg by mouth. No current facility-administered medications for this visit. ALLERGIES: Carbamazepine, Cats, and Seasonal Allergies PERSONAL HISTORY: Social History Tobacco Use Smoking status: Never Smokeless tobacco: Never Vaping Use Vaping status: Never Used Substance Use Topics Alcohol use: Yes Comment: occassional Drug use: Not Currently Types: Marijuana FAMILY HISTORY: FAMILY HISTORY Problem Relation Age of Onset Hypertension Mother Coronary Artery Disease Father age 50 Migraines Sister Lipids Sister Hypertension Sister Migraines Sister No Known Problems Brother Osteoporosis Maternal Grandmother No Known Problems Maternal Grandfather Osteoporosis Paternal Grandmother No Known Problems Paternal Grandfather Osteoporosis Maternal Aunt Lipids Paternal Aunt REVIEW OF SYMPTOMS: The review of systems data was entered by the nurse and reviewed by me There are no exam notes on file for this visit. PHYSICAL EXAMINATION: General: The patient is 54 year old adult, well nourished, well hydrated in no acute distress. The patient is oriented to time, place, and person. VITALS: Blood pressure 120/80, pulse 100, temperature 36.9 C (98.5 F), temperature source Temporal, resp. rate 12, height 158.8 cm (5' 2.5), weight 47.6 kg (105 lb), last menstrual period 08/08/2022, SpO2 98%. HEENT: Normal cephalic, ataumatic, pupils are equally round, sclera are anicteric, mucous membranes are moist, oropharynx is clear. Neck has no masses, asymmetry or lymphadenopathy. Thyroid is unremarkable. Respiratory: Clear to auscultation and percussion. Normal respiratory excursion and pattern. Cardiac: Examination is regular rate and rhythm. Abdominal exam: Soft, nontender, with no palpable masses. No hepatosplenomegaly. No palpable hernias. Rectal exam: exam deferred Extremities: no clubbing, cyanosis or edema. No adenopathy. Other: Right inguinal area shows a reducible inguinal hernia when she is standing. There is generalized weakness in this area. I do not really think this is an incisional hernia but it is also close to her Pfannenstiel incision. LABORATORY VALUES: As Noted RADIOLOGIC STUDIES: As Noted Assessment IMPRESSION: Hernia Right inguinal hernia (primary encounter diagnosis) PLAN: She does not want anything done to this as of yet she is going to come back and see me sometime in July for a laparoscopic right inguinal hernia repair to be done in August of next year. Diagnoses: (K40.90) Right inguinal hernia (primary encounter diagnosis) (K46.9) Hernia My findings have been communicated to Dr. Fontenot via shared medical record. This note will be forwarded to Dr. Dell Pickard DO. Return to Clinic: The patient is instructed to follow-up with me July. Stephon Prabhakar III, MD REVIEW OF SYSTEMS: General: The patient denies fatigue, denies weight loss, denies weight gain, denies feeling hot, and denies feelings of cold. Eyes: The patient denies glaucoma, denies eye injury/surgery, wears glasses and contacts. Ear/Nose/Throat: The patient denies allergies, denies hayfever, denies ear infections, and denies bloody noses. Cardiovascular: The patient denies chest pain, denies heart disease, denies high blood pressure,denies cardiac stent, denies prior heart attack, denies irregular heart beat, denies high cholesterol, denies poor circulation, denies heart failure, other cardiac issues, denies claudication, denies cold feet, denies peripheral arterial stent. Respiratory: The patient denies tuberculosis, denies pneumonia, denies frequent cough, denies pulmonary embolism, denies shortness of breath, and denies coughing up blood. Gastrointestinal: The patient denies difficulty swallowing, denies acid reflux, denies ulcers, denies vomiting, denies jaundice/hepatitis, denies gallbladder problems, denies black or tarry stools, denies hemorrhoids, denies bleeding from rectum, denies diverticulitis, denies constipation, denies diarrhea, denies loss of stool control, and denies hernias. Kidney/Bladder: The patient denies kidney stones, denies urine infections, and denies bloody urine. Skin: The patient denies a history of skin cancer, denies bleeding/changing moles, and denies a history of skin rash. Neurologic: The patient denies a history of epilepsy/convulsions, denies headaches, denies head/spinal injuries, and denies stroke/TIA, notes Trigeminal neuralgia. Psychiatric: The patient denies psychiatric medications, denies depression, and denies voices, denies substance abuse. Endocrine: The patient denies thyroid disorders, denies diabetes, and denies hormonal problems. Hematologic: The patient denies a history of bruising, denies bleeding, and denies anemia, denies blood clots. Infections: The patient denies a history of measles and mumps, denies rheumatic fever, and denies sexually transmitted diseases. Musculoskeletal: The patient denies back pain/injury, denies back problems, denies sciatica, denies knee/foot trouble, denies arthritis, or denies gout. When was patient's last Mammogram screening? 12/19/2024 Last Colonoscopy: 01/09/2017 Shahrzad Mims LPN documented in this encounter [facility] 01-27-2025 Note HNO ID: [id number] Author: SHAHRZAD MIMS LPN Service: ? Author Type: LICENSED NURSE Type: Progress Notes Filed: 01/28/2025 13:53 Note Text: REVIEW OF SYSTEMS: General: The patient denies fatigue, denies weight loss, denies weight gain, denies feeling hot, and denies feelings of cold. Eyes: The patient denies glaucoma, denies eye injury/surgery, wears glasses and contacts. Ear/Nose/Throat: The patient denies allergies, denies hayfever, denies ear infections, and denies bloody noses. Cardiovascular: The patient denies chest pain, denies heart disease, denies high blood pressure,denies cardiac stent, denies prior heart attack, denies irregular heart beat, denies high cholesterol, denies poor circulation, denies heart failure, other cardiac issues, denies claudication, denies cold feet, denies peripheral arterial stent. Respiratory: The patient denies tuberculosis, denies pneumonia, denies frequent cough, denies pulmonary embolism, denies shortness of breath, and denies coughing up blood. Gastrointestinal: The patient denies difficulty swallowing, denies acid reflux, denies ulcers, denies vomiting, denies jaundice/hepatitis, denies gallbladder problems, denies black or tarry stools, denies hemorrhoids, denies bleeding from rectum, denies diverticulitis, denies constipation, denies diarrhea, denies loss of stool control, and denies hernias. Kidney/Bladder: The patient denies kidney stones, denies urine infections, and denies bloody urine. Skin: The patient denies a history of skin cancer, denies bleeding/changing moles, and denies a history of skin rash. Neurologic: The patient denies a history of epilepsy/convulsions, denies headaches, denies head/spinal injuries, and denies stroke/TIA, notes Trigeminal neuralgia. Psychiatric: The patient denies psychiatric medications, denies depression, and denies voices, denies substance abuse. Endocrine: The patient denies thyroid disorders, denies diabetes, and denies hormonal problems. Hematologic: The patient denies a history of bruising, denies bleeding, and denies anemia, denies blood clots. Infections: The patient denies a history of measles and mumps, denies rheumatic fever, and denies sexually transmitted diseases. Musculoskeletal: The patient denies back pain/injury, denies back problems, denies sciatica, denies knee/foot trouble, denies arthritis, or denies gout. When was patient's last Mammogram screening? 12/19/2024 Last Colonoscopy: 01/09/2017 Shahrzad Mims LPN [facility] 01-16-2025 Note HNO ID: [id number] Author: SHAHRZAD CRAFT RT(R) Service: ? Author Type: Literature Teacher Type: Progress Notes Filed: 01/16/2025 15:17 Note Text: Radiology Service Progress Note DATE OF SERVICE: January 16, 2025 TIME: 3:16 PM PATIENT IDENTITY VERIFICATION COMPLETED USING TWO (2) STANDARD IDENTIFIERS: Name and Date of confirmed by patient verbally. FALL SCREENING: Has the patient had 2 falls in the last year or 1 fall with injury or currently using an Ambulatory Assistive Device (Walker, Cane, Wheelchair, Crutches, etc.)? No PATIENT GENDER DATA: Assigned female at . status: : No status: NO. PATIENT RELEVANT IMPLANT DATA REVIEWED: Yes PATIENT PRESENTS WITH AN IMPLANTABLE OR ATTACHED EVENING OR NIGHT NURSE SUPERVISOR: No ALLERGIES: Reviewed and unchanged CONTRAST ALLERGY: NO. EXAM: CT -CONTRAST INDUCED NEPHROPATHY RISK FACTORS: Not applicable CREATININE: Creatinine Date Value Ref Range Status 11/05/2024 0.67 (L) 0.73 - 1.22 mg/dL Final 03/19/2024 0.74 0.73 - 1.22 mg/dL Final 09/11/2023 0.78 0.73 - 1.22 mg/dL Final Estimated Glomerular Filtration Rate Date Value Ref Range Status 11/05/2024 104 >=60 mL/min/1.73m? Final Comment: Estimated Glomerular Filtration Rate (eGFR) is calculated using the 2020 CKD-EPI creatinine equation. This equation utilizes serum creatinine, sex, and age as parameters. The creatinine assay has traceable calibration to isotope dilution-mass spectrometry. Refer to KDIGO guidelines for clinical interpretation. In patients with unstable renal function, e.g. those with acute kidney injury, the eGFR may not accurately reflect actual GFR. eGFR- Date Value Ref Range Status 10/09/2013 >60 Final P.O.C.T. RESULTS: POC done: Yes, See Lab Tab January 16, 2025 TREATMENT: N/A PERIPHERAL IV DATA: Ambulatory: A peripheral IV was started in the Left antecubital site with a Angio cath: 22 gauge. RADIOLOGY DEPARTMENT: CT; Exam(s) Completed: Abdomen/Pelvis SIGNATURE: RT Carlos(R) PATIENT NAME: Cecilia Patel DATE: January 16, 2025 TIME: 3:16 PM [facility] 01-08-2025 Instructions Gissell Fontenot APRN.[facility] - 01/08/2025 10:35 AM EDT We discussed your abdominal lump: - The lump on your right side is likely a hernia, possibly related to muscle weakening from your prior C-sections. It becomes more noticeable when standing and reduces when lying down. - I performed a physical exam, and there is no tenderness or discomfort associated with the lump. - I will order a CT scan to evaluate the lump further We discussed your night sweats: - Your night sweats may be related to hormonal changes associated with menopause. Since you have an upcoming appointment with your comfort filler, we agreed to defer hormonal lab work until then, as they may want to order additional or more specific tests. Please discuss your symptoms with your comfort filler during that visit. We discussed your trigeminal neuralgia and medications: - You are currently taking oxcarbazepine for trigeminal neuralgia, with a dose of 300 mg in the morning and 450 mg at night. You have about 7 days of medication remaining. - I recommend contacting your neurologist to ensure your prescription is updated to reflect your current dosing. Their office has also ordered blood work (BMP) to monitor your kidney function while on this medication. You can complete this lab work at our office when it is due. - You mentioned using tramadol 50 mg as needed for breakthrough pain, typically once daily and not every day. I will discuss with Ashley about refilling this medication to ensure you have access to it when needed. Next steps: - Await a call from our office regarding the imaging order for your abdominal lump. - Contact your neurologist to confirm your oxcarbazepine prescription and follow up on the BMP lab order (we will try to contact today as well, but please follow up with them if no resolution) - Complete the BMP lab work at our office when it is due. - Discuss your night sweats and any additional concerns with your comfort filler at your upcoming appointment. Please let us know if you have any questions or if your symptoms worsen. documented in this encounter [facility] 01-08-2025 Note HNO ID: [id number] Author: GISSELL FONTENOT APRN.CNP Service: ? Author Type: Nurse Practitioner Type: Progress Notes Filed: 01/08/2025 10:48 Note Text: Chief complaint: abdominal lump right lower larger; night sweats; trigeminal neuralgia regimen/refills HPI: Cecilia is a 54-year-old female, with a history of trigeminal neuralgia, presenting with a progressively enlarging abdominal mass and night sweats. Cecilia reports a non-tender abdominal mass on the right side that has been gradually enlarging over the past 7 years. Initially described as a small nunam iqua or bump, the mass is now more prominent and noticeable when standing, but seems to diminish when lying down. Cecilia denies any specific inciting event, such as lifting, that preceded the appearance of the mass. She has a history of two C-sections, the last one being 16 years ago, and notes that the mass started near the incision site. She has not undergone any recent imaging for this issue but had a CT scan and PET scan in 2017, which did not raise significant concerns at the time. She says she also saw Dr Prabhakar in general surgery who did not feel she needed intervention. She denies any associated pain, tenderness, bowel or urinary issues. Additionally, Cecilia reports experiencing night sweats for at least a year, which have become more frequent. She has not had a menstrual period in approximately 2 years and attributes the night sweats to menopausal symptoms. She plans to discuss this issue with her comfort filler in a couple of month and has an appointment scheduled. Neurology: Cecilia also has a history of trigeminal neuralgia and is currently under the care of a neurologist. She was previously on gabapentin for several years but recently switched to oxcarbazepine due to decreased efficacy of gabapentin. She is currently taking 300 mg in the morning and 450 mg at night, although her prescription is for 150 mg twice daily. There is a [address] Tao's office that it was increased to 450mg twice daily 12/28/24 but she doesn't have that current prescription sent in. She has about a 7-day supply left and has requested a refill from her neurologist. She prefers to still be able to choose between 300mjg or 450mg in the morning. She also uses tramadol 50 mg as needed for breakthrough pain, approximately once a day, and is requesting a refill. She uses it maybe once daily or less, worries about not having it if she needs it. She experiences several flare-ups of trigeminal neuralgia per month (usually daily has an episode of pain), characterized by sharp pain and constant burning in her tongue and jaw, which can interfere with eating and talking. ROS Constitutional: (+) night sweats , weight is stable; pain/discomfort not associated with bulge Gastrointestinal: (+) right-sided abdominal bulge, (-) bowel changes Genitourinary: (-) urinary difficulty Neurological: (+) facial pain/burning (trigeminal region) Physical exam: GENERAL: pleasant, AANDO SKIN: Unremarkable, no rash or skin lesions. HEAD: Normocephalic. LUNGS: Clear to auscultation bilaterally, no wheezes/rhonchi/rales. HEART: Regular rate and rhythm, no murmurs ABDOMEN: Soft, non-tender. Palpable mass noted in the right lower quadrant when standing, soft; diminishes when supine. Normal bowel sounds. EXTREMITIES: Normal, no deformities, no skin discoloration, no edema. Diagnostics: Labs: (October) - Labs: unremarkable Imaging: (2016) CT Abdomen: Omental stranding and thickening in the upper abdomen, especially in the right perihepatic region. - (2016)PET Scan: unremarkable Assessment/Plan: 1. Hernia (K46.9), RLQ/near groin - Ordered CT scan to further evaluate the abdominal mass, also discussed with Dr Pickard who suggested a general surgeon consult as well AFTER the CT scan 2. Trigeminal neuralgia (G50.0) Trigeminal neuralgia of right side of face (G50.0) - Confirm current oxcarbazepine dosage with neurologist and ensure appropriate prescription is provided. - Patient to continue current oxcarbazepine regimen and has a BMP ordered by neurology, expected by 02/18/25. - Will coordinate with Dr. Cook's office to ensure timely refill of oxcarbazepine and if they will reorder tramadol as well. Encouraged patient to follow up with Dr Tao's office if she doesn't hear back. 3. Menopausal and postmenopausal disorder (N95.9) Experiencing night sweats for approximately one year. Amenorrhea for two years. Symptoms likely related to menopausal hormonal changes. - Patient to discuss symptoms with comfort filler at upcoming appointment in a couple of months. - No immediate labs ordered; patient prefers to wait for gynecological evaluation. Recording using [employer] software for draft documentation of the visit was discussed with the patient/authorized real estate representative; all questions welcomed and answered. Patient/authorized real estate representative agr (more content not included)... [facility] 01-08-2025 History of Present illness Narrative Chief complaint: abdominal lump right lower larger; night sweats; trigeminal neuralgia regimen/refills HPI: Cecilia is a 54-year-old female, with a history of trigeminal neuralgia, presenting with a progressively enlarging abdominal mass and night sweats. Cecilia reports a non-tender abdominal mass on the right side that has been gradually enlarging over the past 7 years. Initially described as a small nunam iqua or bump, the mass is now more prominent and noticeable when standing, but seems to diminish when lying down. Cecilia denies any specific inciting event, such as lifting, that preceded the appearance of the mass. She has a history of two C-sections, the last one being 16 years ago, and notes that the mass started near the incision site. She has not undergone any recent imaging for this issue but had a CT scan and PET scan in 2017, which did not raise significant concerns at the time. She says she also saw Dr Prabhakar in general surgery who did not feel she needed intervention. She denies any associated pain, tenderness, bowel or urinary issues. Additionally, Cecilia reports experiencing night sweats for at least a year, which have become more frequent. She has not had a menstrual period in approximately 2 years and attributes the night sweats to menopausal symptoms. She plans to discuss this issue with her comfort filler in a couple of month and has an appointment scheduled. Neurology: Cecilia also has a history of trigeminal neuralgia and is currently under the care of a neurologist. She was previously on gabapentin for several years but recently switched to oxcarbazepine due to decreased efficacy of gabapentin. She is currently taking 300 mg in the morning and 450 mg at night, although her prescription is for 150 mg twice daily. There is a [address] Tao's office that it was increased to 450mg twice daily 12/28/24 but she doesn't have that current prescription sent in. She has about a 7-day supply left and has requested a refill from her neurologist. She prefers to still be able to choose between 300mjg or 450mg in the morning. She also uses tramadol 50 mg as needed for breakthrough pain, approximately once a day, and is requesting a refill. She uses it maybe once daily or less, worries about not having it if she needs it. She experiences several flare-ups of trigeminal neuralgia per month (usually daily has an episode of pain), characterized by sharp pain and constant burning in her tongue and jaw, which can interfere with eating and talking. ROS Constitutional: (+) night sweats , weight is stable; pain/discomfort not associated with bulge Gastrointestinal: (+) right-sided abdominal bulge, (-) bowel changes Genitourinary: (-) urinary difficulty Neurological: (+) facial pain/burning (trigeminal region) Physical exam: GENERAL: pleasant, A&O SKIN: Unremarkable, no rash or skin lesions. HEAD: Normocephalic. LUNGS: Clear to auscultation bilaterally, no wheezes/rhonchi/rales. HEART: Regular rate and rhythm, no murmurs ABDOMEN: Soft, non-tender. Palpable mass noted in the right lower quadrant when standing, soft; diminishes when supine. Normal bowel sounds. EXTREMITIES: Normal, no deformities, no skin discoloration, no edema. Diagnostics: Labs: (October) - Labs: unremarkable Imaging: (2016) CT Abdomen: Omental stranding and thickening in the upper abdomen, especially in the right perihepatic region. - (2017)PET Scan: unremarkable Assessment/Plan: 1. Hernia (K46.9), RLQ/near groin - Ordered CT scan to further evaluate the abdominal mass, also discussed with Dr Pickard who suggested a general surgeon consult as well AFTER the CT scan 2. Trigeminal neuralgia (G50.0) Trigeminal neuralgia of right side of face (G50.0) - Confirm current oxcarbazepine dosage with neurologist and ensure appropriate prescription is provided. - Patient to continue current oxcarbazepine regimen and has a BMP ordered by neurology, expected by 02/18/25. - Will coordinate with Dr. Cook's office to ensure timely refill of oxcarbazepine and if they will reorder tramadol as well. Encouraged patient to follow up with Dr Tao's office if she doesn't hear back. 3. Menopausal and postmenopausal disorder (N95.9) Experiencing night sweats for approximately one year. Amenorrhea for two years. Symptoms likely related to menopausal hormonal changes. - Patient to discuss symptoms with comfort filler at upcoming appointment in a couple of months. - No immediate labs ordered; patient prefers to wait for gynecological evaluation. Recording using [employer] software for draft documentation of the visit was discussed with the patient/authorized real estate representative; all questions welcomed and answered. Patient/authorized real estate representative agreed to proceed Gissell Fontenot APRN.AUTHORIZATION REP documented in this encounter [facility] 01-07-2025 Telephone encounter Note Pt calling in to request updated prescription to reflect increase of trileptal to 450 mg twice daily. Please send to pharmacy. She is also inquiring on lab orders to recheck blood work in 6-8 weeks. Thank you. [facility] 01-07-2025 Miscellaneous Notes Pt calling in to request updated prescription to reflect increase of trileptal to 450 mg twice daily. Please send to pharmacy. She is also inquiring on lab orders to recheck blood work in 6-8 weeks. Thank you. Patient last seen on 11/14/24. documented in this encounter [facility] 12-27-2024 Telephone encounter Note Physician: Call from patient requesting refill. Please E-Scribe Last OV: 11/14/2024 with Tao Future OV: 02/14/2025 with Bayleejdovski Patient is taking 300 mg 2 times a day and is out of medication. Patient asked that this be updated to reflect current dose. Pharm denied refill. Requested Prescriptions Pending Prescriptions Disp Refills OXcarbazepine (TRILEPTAL) 150 mg tablet 60 tablet 11 Sig: Take 1 tablet by mouth two times a day. Pharmacy Name: Teresa Harmon [facility] 12-27-2024 Miscellaneous Notes Physician: Call from patient requesting refill. Please E-Scribe Last OV: 11/14/2024 with Tao Future OV: 02/14/2025 with Najdovski Patient is taking 300 mg 2 times a day and is out of medication. Patient asked that this be updated to reflect current dose. Pharm denied refill. Requested Prescriptions Pending Prescriptions Disp Refills OXcarbazepine (TRILEPTAL) 150 mg tablet 60 tablet 11 Sig: Take 1 tablet by mouth two times a day. Pharmacy Name: Teresa [facility]on documented in this encounter [facility] 12-19-2024 Note HNO ID: [id number] Author: JACLYN BRADSHAW [employer] Buenrostro Service: ? Author Type: Literature Teacher Type: Progress Notes Filed: 12/19/2024 11:52 Note Text: Radiology Service Progress Note PATIENT NAME: Cecilia Patel DATE OF SERVICE: December 19, 2024 TIME: 11:51 AM PATIENT IDENTITY VERIFICATION COMPLETED USING TWO (2) IDENTIFIERS: Name and Date of confirmed by patient verbally. FALL SCREENING: Has the patient had 2 falls in the last year or 1 fall with injury or currently using an Ambulatory Assistive Device (Walker, Cane, Wheelchair, Crutches, etc.)? No PATIENT GENDER DATA: Assigned female at . status: : No status: NO. PATIENT RELEVANT IMPLANT DATA REVIEWED: Not Applicable PATIENT PRESENTS WITH AN IMPLANTABLE OR ATTACHED EVENING OR NIGHT NURSE SUPERVISOR: No RADIOLOGY DEPARTMENT: Mammography PERIPHERAL IV DATA: Not applicable SIGNED BY: Jaclyn Bradshaw [email or web address] December 19, 2024 11:51 AM [facility] 12-17-2024 Telephone encounter Note Patient last seen on 11/14/24. [facility] 12-09-2024 Telephone encounter Note Pharmacy is indicating this is . Can you please resend. Thank you. Patient phoned to request the following prescription(s) Requested Prescriptions Pending Prescriptions Disp Refills traMADol (ULTRAM) 50 mg tablet 25 tablet 0 Sig: Take 1 tablet by mouth every 8 hours as needed for pain for up to 33 days. Patient aware RX will be sent to pharmacy. No need to notify patient. Please review. Shahrzad Galvan RN [facility] 12-09-2024 Miscellaneous Notes Pharmacy is indicating this is . Can you please resend. Thank you. Patient phoned to request the following prescription(s) Requested Prescriptions Pending Prescriptions Disp Refills traMADol (ULTRAM) 50 mg tablet 25 tablet 0 Sig: Take 1 tablet by mouth every 8 hours as needed for pain for up to 33 days. Patient aware RX will be sent to pharmacy. No need to notify patient. Please review. Shahrzad Galvan RN documented in this encounter [facility] 12-05-2024 Telephone encounter Note Patient last seen on 11/14/24. [facility] 12-05-2024 Miscellaneous Notes Patient last seen on 11/14/24. documented in this encounter [facility] 11-14-2024 Note HNO ID: [id number] Author: MERCEDES TAO, DO Service: ? Author Type: Physician Type: Progress Notes Filed: 11/14/2024 18:45 Note Text: Headache Center - Botox Follow-up Visit ASSESSMENT: 54 yof with history significant for rare migraine without aura (1/year), with R V2-3 trigeminal neuralgia. Neurosurgery recommended MVD given the classical nature of the pain and visualized arterial loop touching the trigeminal nerve on imaging, so this is an option if things are not improving. We are using Botox for her R trigeminal nerve disorder, which she has been responding to very well. PLAN: (Please see typed patient instructions for detailed instructions) ---> Acute Treatment: -Tramadol vs. Baclofen prn breakthrough pain until preventive therapy starts helping. ---> Preventive Treatment: -Gabapentin 900 mg tid was prior dose. She has been self adjusting herself. -Discussed adding a Trileptal trial next if pain is becoming less responsive to Botox, or if it is starting to wear off prematurely. -Botox today. ---> Follow-up: 3 months for Botox. Last Visit: 07/30/24 Interval Headache Hx: Responding to Botox until it starts to wear off. HEADACHE SCORES: 09/05/2023 Headache Questions Days per month with mild/moderate face pain: 15 Days per month with severe face pain: 10 PRN medication usage in the last month: 30 09/05/2023 GE - 2/7 SCORES GE-2 Score 2 09/05/2023 PHQ-9 Score 1 BP 106/68 Pulse 70 Wt 47.6 kg (105 lb) LMP 08/08/2022 (Approximate) BMI 18.49 kg/m? Patient name: Cecilia Patel : 1970 ALLERGIES Allergen Reactions Carbamazepine Hives Cats Intolerance Seasonal Allergies Intolerance UNIVERSAL PROTOCOL / SAFETY CHECKLIST Procedure to be Performed: Botox Sign In: A Moment of CARE was completed. Personnel directly involved with the procedure wore the appropriate PPE (Personal Protective Equipment). Patient/Surrogate Stated/Verified: PATIENT VERIFIED(optional for EMERGENT procedures): Patient name, Date of , Relevant allergies, and The intended procedure Time Out Communication: Intended patient and procedure match the source documents. Consent documented and matches the intended procedure. Sign Out: SIGN OUT (optional for EMERGENT procedures): No specimen collected. Mercedes Tao DO UNIVERSAL PROTOCOL / SAFETY CHECKLIST Procedure: Botox for R V2>3 trigeminal neuralgia Informed Consent Consent Obtained: Written [place] Protocol A moment to CARE was completed SIGN IN Personnel directly involved with the procedure wore the appropriate PPE Special Equipment: N/A Patient/Surrogate Stated/Verified: Patient name, Date of , Relevant allergies and Intended procedure TIME OUT No relevant labs, photos, and/or imaging studies were applicable for review. Consent documented and matches the intended procedure No correct side/site applicable for marking and visibility. No medications required for procedure. No fire risk assessment and interventions applicable. No implant(s) inserted. SIGN OUT No specimen collected. Written Consent Obtained: Written I have reviewed the Lit Status Assessment responses and discussed these with the patient: yes The risks, benefits and anticipated outcomes of the procedure, the risks and benefits of the alternatives to the procedure, and the roles and tasks of the personnel to be involved, were discussed with the patient, and the patient consents to the procedure and agrees to proceed. Informed consent signed. UNIVERSAL PROTOCOL / SAFETY CHECKLIST Procedure to be performed: BOTOX for trigeminal neuralgia in the R V2>3 distribution (injections performed bilateral for muscle symmetry) Sign in Communication: completed Time Out: Team Confirms the Correct Patient, Correct Procedure, Correct Site and Site Marking, Correct Position (if applicable). Time: 1122 Affirmation of Time Out: completed Sign Out Discussion: completed 100 units of Botox A (lot # [id number] expiration date 12/2026) was diluted in 2 cc normal saline. Botox Sites: Units used: 100 Units wasted: 0 Mercedes Tao DO [facility] [place] Department [facility] [address] [place] [address] Pager [phone] Prior Therapies Duration of Use Dose Side effect Analgesic Diclofenac (Voltaren, Cataflam, Cambia) Hydrocodone/Acetaminophen (Vicodin, [place]) Hydromorphone (Dilaudid) Ketorolac (Toradol) Meloxicam (Mobic) Meperidine (Demerol) Oxycodone/Acetaminophen (Percocet) Tramadol (Ultram) Anti-Anxiety Lorazepam (Ativan) Anti-Convulsant Carbamazepine (Tegretol) Gabapentin (Neurontin) Anti-Depressant and Antipsychotic Duloxetine (Cymbalta) Ant (more content not included)... [facility] 11-14-2024 History of Present illness Narrative Images from the original note were not included. Headache Center - Botox Follow-up Visit ASSESSMENT: 54 yof with history significant for rare migraine without aura (1/year), with R V2-3 trigeminal neuralgia. Neurosurgery recommended MVD given the classical nature of the pain and visualized arterial loop touching the trigeminal nerve on imaging, so this is an option if things are not improving. We are using Botox for her R trigeminal nerve disorder, which she has been responding to very well. PLAN: (Please see typed patient instructions for detailed instructions) ---> Acute Treatment: -Tramadol vs. Baclofen prn breakthrough pain until preventive therapy starts helping. ---> Preventive Treatment: -Gabapentin 900 mg tid was prior dose. She has been self adjusting herself. -Discussed adding a Trileptal trial next if pain is becoming less responsive to Botox, or if it is starting to wear off prematurely. -Botox today. ---> Follow-up: 3 months for Botox. Last Visit: 07/30/24 Interval Headache Hx: Responding to Botox until it starts to wear off. HEADACHE SCORES: 09/05/2023 Headache Questions Days per month with mild/moderate face pain: 15 Days per month with severe face pain: 10 PRN medication usage in the last month: 30 09/05/2023 GE - 2/7 SCORES GE-2 Score 2 09/05/2023 PHQ-9 Score 1 BP 106/68 Pulse 70 Wt 47.6 kg (105 lb) LMP 08/08/2022 (Approximate) BMI 18.49 kg/m Patient name: Cecilia Patel : 1970 ALLERGIES Allergen Reactions Carbamazepine Hives Cats Intolerance Seasonal Allergies Intolerance UNIVERSAL PROTOCOL / SAFETY CHECKLIST Procedure to be Performed: Botox Sign In: A Moment of CARE was completed. Personnel directly involved with the procedure wore the appropriate PPE (Personal Protective Equipment). Patient/Surrogate Stated/Verified: PATIENT VERIFIED(optional for EMERGENT procedures): Patient name, Date of , Relevant allergies, and The intended procedure Time Out Communication: Intended patient and procedure match the source documents. Consent documented and matches the intended procedure. Sign Out: SIGN OUT (optional for EMERGENT procedures): No specimen collected. Mercedes Tao DO UNIVERSAL PROTOCOL / SAFETY CHECKLIST Procedure: Botox for R V2>3 trigeminal neuralgia Informed Consent Consent Obtained: Written [place] Protocol A moment to CARE was completed SIGN IN Personnel directly involved with the procedure wore the appropriate PPE Special Equipment: N/A Patient/Surrogate Stated/Verified: Patient name, Date of , Relevant allergies and Intended procedure TIME OUT No relevant labs, photos, and/or imaging studies were applicable for review. Consent documented and matches the intended procedure No correct side/site applicable for marking and visibility. No medications required for procedure. No fire risk assessment and interventions applicable. No implant(s) inserted. SIGN OUT No specimen collected. Written Consent Obtained: Written I have reviewed the Lit Status Assessment responses and discussed these with the patient: yes The risks, benefits and anticipated outcomes of the procedure, the risks and benefits of the alternatives to the procedure, and the roles and tasks of the personnel to be involved, were discussed with the patient, and the patient consents to the procedure and agrees to proceed. Informed consent signed. UNIVERSAL PROTOCOL / SAFETY CHECKLIST Procedure to be performed: BOTOX for trigeminal neuralgia in the R V2>3 distribution (injections performed bilateral for muscle symmetry) Sign in Communication: completed Time Out: Team Confirms the Correct Patient, Correct Procedure, Correct Site and Site Marking, Correct Position (if applicable). Time: 1122 Affirmation of Time Out: completed Sign Out Discussion: completed 100 units of Botox A (lot # [id number] expiration date 12/2026) was diluted in 2 cc normal saline. Botox Sites: Units used: 100 Units wasted: 0 Mercedes Tao DO [facility] [place] Department [facility] [address] [place] [address] Pager [phone] Prior Therapies Duration of Use Dose Side effect Analgesic Diclofenac (Voltaren, Cataflam, Cambia) Hydrocodone/Acetaminophen (Vicodin, [place]) Hydromorphone (Dilaudid) Ketorolac (Toradol) Meloxicam (Mobic) Meperidine (Demerol) Oxycodone/Acetaminophen (Percocet) Tramadol (Ultram) Anti-Anxiety Lorazepam (Ativan) Anti-Convulsant Carbamazepine (Tegretol) Gabapentin (Neurontin) Anti-Depressant and Antipsychotic Duloxetine (Cymbalta) Antiemetics Ondansetron Promethazine Anti-Migraine Sumatriptan (Imitrex, [place]) Botulinum Toxin Onabotulinum Toxin A (Botox) for trigeminal neuralgia Muscle Relaxer Baclofen (Lioresal) Cyclobenzaprine (Flexeril) Other Medications Dexamethasone (Decadron) Methylprednisolone (Medrol) Prednisone Over the Counter Medications Acetaminophen (Tylenol) Acetaminophen/Aspirin/Caffeine (Excedrin, Goody s) Aspirin Ibuprofen (Advil, Motrin) Naproxen sodium (Aleve) Mercedes Tao DO PMH: PAST MEDICAL HISTORY Diagnosis Date Allergic rhinitis Heart murmur IFG (impaired fasting glucose) 02/2023 Migraine headache only have had 1-2 in her life per pt Osteopenia of spine 12/2021 PONV (postoperative nausea and vomiting) Trigeminal neuralgia of right side of face 10/2015 SOC: Social History Tobacco Use Smoking status: Never Smokeless tobacco: Never Vaping Use Vaping status: Never Used Substance Use Topics Alcohol use: Yes Comment: occassional Drug use: No MEDS: Current Outpatient Medications Medication Sig baclofen 10 mg tablet Take 1 tablet by mouth three times a day as needed (facial pain). gabapentin (NEURONTIN) 600 mg tablet Take 1.5 tablets by mouth three times a day. cyanocobalamin (VITAMIN B-12) 1,000 mcg tab Take 2 tablets by mouth once daily. Ferrous Sulfate (SLOW FE) 142 mg (45 mg iron) TbER Take 1 tablet by mouth twice daily. With food, iron supplement LORazepam (ATIVAN) 0.5 mg Take 0.25 mg by mouth. ascorbic acid, vitamin C, (VITAMIN C) 250 mg tablet Take 1 tablet by mouth once daily. Cholecalciferol, Vitamin D3, (VITAMIN D-3) 50 mcg (2,000 unit) cap Take 1 capsule by mouth once daily. Biotin 10,000 mcg cap Take 1 capsule by mouth once daily. Zinc Sulfate 25 mg zinc (110 mg) tab Patient takes 22.5 mg daily Herbal Drugs tab Magnesium 50 mg daily No current facility-administered medications for this visit. REVIEW OF SYSTEMS: Review of system : unchanged from the previous visit (sleep patterns, mood, energy, appetite, stress, exercising). Physical Examination: BP 106/68 Pulse 70 Wt 47.6 kg (105 lb) LMP 08/08/2022 (Approximate) BMI 18.49 kg/m GEN: Alert. NAD. Normal affect. Cooperative. NEUROLOGICAL: A+O x 3. Attentive. Thought process and content unremarkable. Follows commands appropriately. Speech fluent. Mercedes Tao DO [facility] [place] Department [facility] [address] [place] [address] Level of service: Est level 3 (20-29 min). Time spent 25 min on the day of service, which included preparing to see the patient, [id number] patient care, completing clinical documentation, obtaining and/or reviewing separately obtained history, performing a medically appropriate examination, counseling and educating the patient/family/caregiver, ordering medications, tests, or procedures, and communicating with other HCPs (not separately reported). Medical Decision Making: Medical Decision Making Level: 1 - N/A cc: Dell Pickard [address] [place] [address] documented in this encounter [facility] 11-07-2024 Telephone encounter Note Spoke with pt gave information provided. Pt voices understanding. [facility] 11-07-2024 Miscellaneous Notes Spoke with pt gave information provided. Pt voices understanding. Please inform patient that overall her labs look great. No signs of prediabetes right now and even though some of her cholesterol levels such as LDL are slightly high, her cholesterol ratios are great. Dell Pickard DO documented in this encounter [facility] 11-06-2024 Telephone encounter Note Please inform patient that overall her labs look great. No signs of prediabetes right now and even though some of her cholesterol levels such as LDL are slightly high, her cholesterol ratios are great. Dell Pickard DO [facility] 10-24-2024 Telephone encounter Note Physician: Tao Call from patient requesting refill. Please E-Scribe Last office visit 07/30/24 with Tao in person Next office visit 11/14/24 with Tao in person Requested Prescriptions Pending Prescriptions Disp Refills baclofen 10 mg tablet 60 tablet 11 Sig: Take 1 tablet by mouth three times a day as needed (facial pain). Pharmacy Name: [facility] Pichardo [facility] 10-24-2024 Miscellaneous Notes Physician: Tao Call from patient requesting refill. Please E-Scribe Last office visit 07/30/24 with Tao in person Next office visit 11/14/24 with Tao in person Requested Prescriptions Pending Prescriptions Disp Refills baclofen 10 mg tablet 60 tablet 11 Sig: Take 1 tablet by mouth three times a day as needed (facial pain). Pharmacy Name: [facility] P[facility] documented in this encounter [facility] 10-10-2024 Telephone encounter Note Physician: Call from patient requesting refill. Please E-Scribe Last office visit 07/30/24 with Tao in person Next office visit 11/14/24 with Tao in person Patient is having a [place] flare up. Requested Prescriptions Pending Prescriptions Disp Refills traMADol (ULTRAM) 50 mg tablet 20 tablet 1 Sig: Take 1 tablet by mouth every 8 hours as needed for pain (For severe pain rescue) for up to 30 days. Pharmacy Name: TERESA Childress [facility] 10-10-2024 Miscellaneous Notes Physician: Tao Call from patient requesting refill. Please E-Scribe Last office visit 07/30/24 with Tao in person Next office visit 11/14/24 with Tao in person Patient is having a TN flare up. Requested Prescriptions Pending Prescriptions Disp Refills traMADol (ULTRAM) 50 mg tablet 20 tablet 1 Sig: Take 1 tablet by mouth every 8 hours as needed for pain (For severe pain rescue) for up to 30 days. Pharmacy Name: [facility] documented in this encounter [facility] 09-17-2024 Note Patient Outreach (FA MPWS) CECILIA PATEL ([id number]) 1970 F Date Time Provider Department 09/17/24 DELL PICKARD During your visit today, we recorded the following information about you: Allergies As of Date: 09/17/2024 Noted Allergy Reaction CARBAMAZEPINE 01/12/2024 4 - Hives CATS 06/14/2010 5 - Intolerance SEASONAL ALLERGIES 06/14/2010 5 - Intolerance Date Reviewed: 07/30/2024 Reviewed by: Yvette Garcia MA - Fully Assessed Visit Diagnosis:Encounter for screening mammogram for breast cancer [Z12.31] Order(s):[facility] SCRE[facility] [[id number]] Order #: [id number] FUTURE Prescriptions as of 10/18/2024 - traMADol (ULTRAM) 50 mg tablet Take 1 tablet by mouth every 8 hours as needed for pain (For severe pain rescue) for up to 30 days. - gabapentin (NEURONTIN) 600 mg tablet Take 1.5 tablets by mouth three times a day. - cyanocobalamin (VITAMIN B-12) 1,000 mcg tab Take 2 tablets by mouth once daily. - Ferrous Sulfate (SLOW FE) 142 mg (45 mg iron) TbER Take 1 tablet by mouth twice daily. With food, iron supplement - baclofen (LIORESAL) 10 mg tablet Take 1 tablet by mouth three times daily as needed (facial pain). - LORazepam (ATIVAN) 0.5 mg Take 0.25 mg by mouth. - ascorbic acid, vitamin C, (VITAMIN C) 250 mg tablet Take 1 tablet by mouth once daily. - Cholecalciferol, Vitamin D3, (VITAMIN D-3) 50 mcg (2,000 unit) cap Take 1 capsule by mouth once daily. - Biotin 10,000 mcg cap Take 1 capsule by mouth once daily. - Zinc Sulfate 25 mg zinc (110 mg) tab Patient takes 22.5 mg daily - Herbal Drugs tab Magnesium 50 mg daily Meds Comments as of 12/21/2020: Vitamin D supplement, Problem List As Of Date 09/17/2024 Noted Resolved Routine gynecological examination [Z01.419] 06/14/2010 Class: Chronic Murmur, heart [R01.1] 06/14/2010 Headache(784.0) [R51] 06/14/2010 Allergic rhinitis [J30.9] 08/08/2012 Hives [L50.9] 08/08/2012 Well adult exam [Z00.00] 12/12/2016 Trigeminal neuralgia of right side of face [G50*12/21/2020 Bunion of great toe of right foot [M21.611] 12/21/2020 Mitral regurgitation [I34.0] 05/04/2021 Hyperlipidemia, mixed [E78.2] 01/10/2022 Anemia [D64.9] 01/10/2022 Osteopenia of spine [M85.88] 01/18/2022 Fatigue [R53.83] 09/21/2022 Hyperglycemia [R73.9] 09/21/2022 Varicose veins with pain [I83.819] 03/21/2023 Mitral valve insufficiency, acquired [I34.0] 03/21/2023 Dyslipidemia [E78.5] 03/21/2023 IFG (impaired fasting glucose) [R73.01] 03/21/2023 Vitamin B12 deficiency [E53.8] 03/21/2023 Iron deficiency anemia [D50.9] 09/19/2023 Disorder of bone and cartilage [M89.9, M94.9] 09/19/2023 Trigeminal nerve disorder [G50.9] 01/12/2024 Encounter Status:Closed by RYLAN, PRODUSER on 10/18/24 [facility] 07-30-2024 Note HNO ID: [id number] Author: MERCEDES TAO, Service: ? Author Type: Physician Type: Progress Notes Filed: 07/30/2024 17:46 Note Text: Headache Center - Botox Follow-up Visit ASSESSMENT: 54 yof with history significant for rare migraine without aura (1/year), with R V2-3 trigeminal neuralgia. Neurosurgery recommended MVD given the classical nature of the pain and visualized arterial loop touching the trigeminal nerve on imaging, so this is an option if things are not improving. We are using Botox for her R trigeminal nerve disorder, which she has been responding to very well. PLAN: (Please see typed patient instructions for detailed instructions) ---> Acute Treatment: -Tramadol vs. Baclofen prn breakthrough pain until preventive therapy starts helping. ---> Preventive Treatment: -Gabapentin 900 mg tid was prior dose. She has been self adjusting, and currently weaned herself off as of beginning of Jun. I suggested if pain starting to re-emerge she may want to resume. -Botox today. ---> Follow-up: 3 months for Botox. Last Visit: 04/23/24 Interval Headache Hx: Did very good with the last round, pain was gone for most of the treatment window. She did have some mild pain a bit further up near taoism on R despite pain resolution in other areas, so we'll add a couple extra there. HEADACHE SCORES: 09/05/2023 Headache Questions Days per month with mild/moderate face pain: 15 Days per month with severe face pain: 10 PRN medication usage in the last month: 30 09/05/2023 GE - 2/7 SCORES GE-2 Score 2 09/05/2023 PHQ-9 Score 1 BP 107/70 Pulse 65 Wt 49.9 kg (110 lb) LMP 08/08/2022 (Approximate) BMI 19.37 kg/m? Patient name: Cecilia Patel : 1970 ALLERGIES Allergen Reactions Carbamazepine Hives Cats Intolerance Seasonal Allergies Intolerance UNIVERSAL PROTOCOL / SAFETY CHECKLIST Procedure to be Performed: Botox Sign In: A Moment of CARE was completed. Personnel directly involved with the procedure wore the appropriate PPE (Personal Protective Equipment). Patient/Surrogate Stated/Verified: PATIENT VERIFIED(optional for EMERGENT procedures): Patient name, Date of , Relevant allergies, and The intended procedure Time Out Communication: Intended patient and procedure match the source documents. Consent documented and matches the intended procedure. Sign Out: SIGN OUT (optional for EMERGENT procedures): No specimen collected. Mercedes Tao DO UNIVERSAL PROTOCOL / SAFETY CHECKLIST Procedure: Botox for R V2>3 trigeminal neuralgia Informed Consent Consent Obtained: Written [place] Protocol A moment to CARE was completed SIGN IN Personnel directly involved with the procedure wore the appropriate PPE Special Equipment: N/A Patient/Surrogate Stated/Verified: Patient name, Date of , Relevant allergies and Intended procedure TIME OUT Intended patient and procedure match the source document(s) Consent documented and matches the intended procedure No relevant labs, photos, and/or imaging studies were applicable for review. No correct side/site applicable for marking and visibility. No medications required for procedure. No fire risk assessment and interventions applicable. No implant(s) inserted. SIGN OUT No specimen collected. No instruments, equipment or retained foreign bodies applicable. Post-procedure follow-up management communicated and Plan of Care Visit completed when applicable Written Consent Obtained: Written I have reviewed the Lit Status Assessment responses and discussed these with the patient: yes The risks, benefits and anticipated outcomes of the procedure, the risks and benefits of the alternatives to the procedure, and the roles and tasks of the personnel to be involved, were discussed with the patient, and the patient consents to the procedure and agrees to proceed. Informed consent signed. UNIVERSAL PROTOCOL / SAFETY CHECKLIST Procedure to be performed: BOTOX for trigeminal neuralgia in the R V2>3 distribution (injections performed bilateral for muscle symmetry) Sign in Communication: completed Time Out: Team Confirms the Correct Patient, Correct Procedure, Correct Site and Site Marking, Correct Position (if applicable). Time: 112 Affirmation of Time Out: completed Sign Out Discussion: completed 100 units of Botox A (lot # [id number] expiration date 10/2026) was diluted in 2 cc normal saline. Botox Sites: Units used: 92.5 Units wasted: 7.5 Mercedes Tao DO [facility] [place] Department of [facility] [address] [place] [address], [place] [address] Pager [phone] Prior Therapies Duration of Use Dose Side effect Analgesic Diclofenac ( (more content not included)... [facility] 07-30-2024 History of Present illness Narrative Images from the original note were not included. Headache Center - Botox Follow-up Visit ASSESSMENT: 54 yof with history significant for rare migraine without aura (1/year), with R V2-3 trigeminal neuralgia. Neurosurgery recommended MVD given the classical nature of the pain and visualized arterial loop touching the trigeminal nerve on imaging, so this is an option if things are not improving. We are using Botox for her R trigeminal nerve disorder, which she has been responding to very well. PLAN: (Please see typed patient instructions for detailed instructions) ---> Acute Treatment: -Tramadol vs. Baclofen prn breakthrough pain until preventive therapy starts helping. ---> Preventive Treatment: -Gabapentin 900 mg tid was prior dose. She has been self adjusting, and currently weaned herself off as of beginning of Jun. I suggested if pain starting to re-emerge she may want to resume. -Botox today. ---> Follow-up: 3 months for Botox. Last Visit: 04/23/24 Interval Headache Hx: Did very good with the last round, pain was gone for most of the treatment window. She did have some mild pain a bit further up near taoism on R despite pain resolution in other areas, so we'll add a couple extra there. HEADACHE SCORES: 09/05/2023 Headache Questions Days per month with mild/moderate face pain: 15 Days per month with severe face pain: 10 PRN medication usage in the last month: 30 09/05/2023 GE - 2/7 SCORES GE-2 Score 2 09/05/2023 PHQ-9 Score 1 BP 107/70 Pulse 65 Wt 49.9 kg (110 lb) LMP 08/08/2022 (Approximate) BMI 19.37 kg/m Patient name: Cecilia Patel : 1970 ALLERGIES Allergen Reactions Carbamazepine Hives Cats Intolerance Seasonal Allergies Intolerance UNIVERSAL PROTOCOL / SAFETY CHECKLIST Procedure to be Performed: Botox Sign In: A Moment of CARE was completed. Personnel directly involved with the procedure wore the appropriate PPE (Personal Protective Equipment). Patient/Surrogate Stated/Verified: PATIENT VERIFIED(optional for EMERGENT procedures): Patient name, Date of , Relevant allergies, and The intended procedure Time Out Communication: Intended patient and procedure match the source documents. Consent documented and matches the intended procedure. Sign Out: SIGN OUT (optional for EMERGENT procedures): No specimen collected. Mercedes Tao DO UNIVERSAL PROTOCOL / SAFETY CHECKLIST Procedure: Botox for R V2>3 trigeminal neuralgia Informed Consent Consent Obtained: Written [place] Protocol A moment to CARE was completed SIGN IN Personnel directly involved with the procedure wore the appropriate PPE Special Equipment: N/A Patient/Surrogate Stated/Verified: Patient name, Date of , Relevant allergies and Intended procedure TIME OUT Intended patient and procedure match the source document(s) Consent documented and matches the intended procedure No relevant labs, photos, and/or imaging studies were applicable for review. No correct side/site applicable for marking and visibility. No medications required for procedure. No fire risk assessment and interventions applicable. No implant(s) inserted. SIGN OUT No specimen collected. No instruments, equipment or retained foreign bodies applicable. Post-procedure follow-up management communicated and Plan of Care Visit completed when applicable Written Consent Obtained: Written I have reviewed the Lit Status Assessment responses and discussed these with the patient: yes The risks, benefits and anticipated outcomes of the procedure, the risks and benefits of the alternatives to the procedure, and the roles and tasks of the personnel to be involved, were discussed with the patient, and the patient consents to the procedure and agrees to proceed. Informed consent signed. UNIVERSAL PROTOCOL / SAFETY CHECKLIST Procedure to be performed: BOTOX for trigeminal neuralgia in the R V2>3 distribution (injections performed bilateral for muscle symmetry) Sign in Communication: completed Time Out: Team Confirms the Correct Patient, Correct Procedure, Correct Site and Site Marking, Correct Position (if applicable). Time: 1122 Affirmation of Time Out: completed Sign Out Discussion: completed 100 units of Botox A (lot # [id number] expiration date 10/2026) was diluted in 2 cc normal saline. Botox Sites: Units used: 92.5 Units wasted: 7.5 Mercedes Tao DO [facility] [place] Department of [facility] [address] [place] [address] Pager [phone] Prior Therapies Duration of Use Dose Side effect Analgesic Diclofenac (Voltaren, Cataflam, Cambia) Hydrocodone/Acetaminophen (Vicodin, [place]) Hydromorphone (Dilaudid) Ketorolac (Toradol) Meloxicam (Mobic) Meperidine (Demerol) Oxycodone/Acetaminophen (Percocet) Tramadol (Ultram) Anti-Anxiety Lorazepam (Ativan) Anti-Convulsant Carbamazepine (Tegretol) Gabapentin (Neurontin) Anti-Depressant and Antipsychotic Duloxetine (Cymbalta) Antiemetics Ondansetron Promethazine Anti-Migraine Sumatriptan (Imitrex, Sumavel) Botulinum Toxin Onabotulinum Toxin A (Botox) for trigeminal neuralgia Muscle Relaxer Baclofen (Lioresal) Cyclobenzaprine (Flexeril) Other Medications Dexamethasone (Decadron) Methylprednisolone (Medrol) Prednisone Over the Counter Medications Acetaminophen (Tylenol) Acetaminophen/Aspirin/Caffeine (Excedrin, Goody s) Aspirin Ibuprofen (Advil, Motrin) Naproxen sodium (Aleve) Mercedes Tao DO PMH: PAST MEDICAL HISTORY Diagnosis Date Allergic rhinitis Heart murmur IFG (impaired fasting glucose) 02/2023 Migraine headache only have had 1-2 in her life per pt Osteopenia of spine 12/2021 PONV (postoperative nausea and vomiting) Trigeminal neuralgia of right side of face 10/2015 SOC: Social History Tobacco Use Smoking status: Never Smokeless tobacco: Never Vaping Use Vaping status: Never Used Substance Use Topics Alcohol use: Yes Comment: occassional Drug use: No MEDS: Current Outpatient Medications Medication Sig gabapentin (NEURONTIN) 600 mg tablet Take 1.5 tablets by mouth three times a day. cyanocobalamin (VITAMIN B-12) 1,000 mcg tab Take 2 tablets by mouth once daily. Ferrous Sulfate (SLOW FE) 142 mg (45 mg iron) TbER Take 1 tablet by mouth twice daily. With food, iron supplement baclofen (LIORESAL) 10 mg tablet Take 1 tablet by mouth three times daily as needed (facial pain). LORazepam (ATIVAN) 0.5 mg Take 0.25 mg by mouth. ascorbic acid, vitamin C, (VITAMIN C) 250 mg tablet Take 1 tablet by mouth once daily. Cholecalciferol, Vitamin D3, (VITAMIN D-3) 50 mcg (2,000 unit) cap Take 1 capsule by mouth once daily. Biotin 10,000 mcg cap Take 1 capsule by mouth once daily. Zinc Sulfate 25 mg zinc (110 mg) tab Patient takes 22.5 mg daily Herbal Drugs tab Magnesium 50 mg daily No current facility-administered medications for this visit. REVIEW OF SYSTEMS: Review of system : unchanged from the previous visit (sleep patterns, mood, energy, appetite, stress, exercising). Physical Examination: BP 107/70 Pulse 65 Wt 49.9 kg (110 lb) LMP 08/08/2022 (Approximate) BMI 19.37 kg/m GEN: Alert. NAD. Normal affect. Cooperative. NEUROLOGICAL: A+O x 3. Attentive. Thought process and content unremarkable. Follows commands appropriately. Speech fluent. Mercedes Tao DO [facility] [place] Department of [facility] [address] [place] [id number] Level of service: Est level 3 (20-29 min). Time spent 20 min on the day of service, which included preparing to see the patient, [id number] patient care, completing clinical documentation, obtaining and/or reviewing separately obtained history, performing a medically appropriate examination, counseling and educating the patient/family/caregiver, ordering medications, tests, or procedures, and communicating with other HCPs (not separately reported). Medical Decision Making: Medical Decision Making Level: 1 - N/A cc: Dell Pickard [address] [place] [address] documented in this encounter [facility] 05-09-2024 Telephone encounter Note Patient last seen 04/23/24 [facility] 05-09-2024 Miscellaneous Notes Patient last seen 04/23/24 documented in this encounter [facility] 04-23-2024 Note HNO ID: [id number] Author: MERCEDES TAO DO Service: ? Author Type: Physician Type: Progress Notes Filed: 04/23/2024 13:12 Note Text: Headache Center - Botox Follow-up Visit ASSESSMENT: 53 yof with history significant for rare migraine without aura (1/year), with R V2-3 trigeminal neuralgia. Neurosurgery recommended MVD given the classical nature of the pain and visualized arterial loop touching the trigeminal nerve on imaging, so this is an option if things are not improving. We are using Botox for her R trigeminal nerve disorder, which she responded very well to last treatment. PLAN: (Please see typed patient instructions for detailed instructions) ---> Acute Treatment: -Tramadol vs. Baclofen prn breakthrough pain until preventive therapy starts helping. ---> Preventive Treatment: -Gabapentin 900 mg tid (she has been self adjusting, and currently stable at 300 mg tid) -Botox #3 today. ---> Follow-up: 3 months for Botox. Last Visit: 09/07/23 Interval Headache Hx: Did very good with the last round, pain was gone for most of the treatment window outside of a couple brief flares. HEADACHE SCORES: 09/05/2023 Headache Questions Days per month with mild/moderate face pain: 15 Days per month with severe face pain: 10 PRN medication usage in the last month: 30 09/05/2023 GE - 2/7 SCORES GE-2 Score 2 09/05/2023 PHQ-9 Score 1 BP 128/87 Pulse 78 Wt 48.5 kg (107 lb) LMP 08/08/2022 (Approximate) BMI 18.84 kg/m? Patient name: Cecilia Patel : 1970 ALLERGIES Allergen Reactions Carbamazepine Hives Cats Intolerance Seasonal Allergies Intolerance UNIVERSAL PROTOCOL / SAFETY CHECKLIST Procedure to be Performed: Botox Sign In: A Moment of CARE was completed. Personnel directly involved with the procedure wore the appropriate PPE (Personal Protective Equipment). Patient/Surrogate Stated/Verified: PATIENT VERIFIED(optional for EMERGENT procedures): Patient name, Date of , Relevant allergies, and The intended procedure Time Out Communication: Intended patient and procedure match the source documents. Consent documented and matches the intended procedure. Sign Out: SIGN OUT (optional for EMERGENT procedures): No specimen collected. Mercedes Tao DO UNIVERSAL PROTOCOL / SAFETY CHECKLIST Procedure: Botox for R V2>3 trigeminal neuralgia Informed Consent Consent Obtained: Written [place] Protocol A moment to CARE was completed SIGN IN Personnel directly involved with the procedure wore the appropriate PPE Special Equipment: N/A Patient/Surrogate Stated/Verified: Patient name, Date of , Relevant allergies and Intended procedure TIME OUT Intended patient and procedure match the source document(s) Consent documented and matches the intended procedure No relevant labs, photos, and/or imaging studies were applicable for review. No correct side/site applicable for marking and visibility. No medications required for procedure. No fire risk assessment and interventions applicable. No implant(s) inserted. SIGN OUT No specimen collected. No instruments, equipment or retained foreign bodies applicable. Post-procedure follow-up management communicated and Plan of Care Visit completed when applicable Written Consent Obtained: Written I have reviewed the Lit Status Assessment responses and discussed these with the patient: yes The risks, benefits and anticipated outcomes of the procedure, the risks and benefits of the alternatives to the procedure, and the roles and tasks of the personnel to be involved, were discussed with the patient, and the patient consents to the procedure and agrees to proceed. Informed consent signed. UNIVERSAL PROTOCOL / SAFETY CHECKLIST Procedure to be performed: BOTOX for trigeminal neuralgia in the R V2>3 distribution (injections performed bilateral for muscle symmetry) Sign in Communication: completed Time Out: Team Confirms the Correct Patient, Correct Procedure, Correct Site and Site Marking, Correct Position (if applicable). Time: 1125 Affirmation of Time Out: completed Sign Out Discussion: completed 100 units of Botox A (lot # [id number], expiration date 06/2026) was diluted in 2 cc normal saline. Botox Sites: Site R L 1 2 3 4 5 6 7 8 5 9 2.5 10 2.5 11 2.5 12 2.5 13 2.5 2.5 14 2.5 15 2.5 2.5 16 2.5 2.5 17 2.5 18 2.5 19 2.5 20 2.5 2.5 21 2.5 2.5 22 23 5 5 24 2.5 2.5 25 2.5 2.5 26 2.5 27 2.5 Units used: 75 Units wasted: 25 Mercedes Tao DO [facility] [place] Department [facility] [address] [place] [address] Pager [phone] Prior Therapies Duration of Use Dose Si (more content not included)... [facility] 04-23-2024 History of Present illness Narrative Images from the original note were not included. Headache Center - Botox Follow-up Visit ASSESSMENT: 53 yof with history significant for rare migraine without aura (1/year), with R V2-3 trigeminal neuralgia. Neurosurgery recommended MVD given the classical nature of the pain and visualized arterial loop touching the trigeminal nerve on imaging, so this is an option if things are not improving. We are using Botox for her R trigeminal nerve disorder, which she responded very well to last treatment. PLAN: (Please see typed patient instructions for detailed instructions) ---> Acute Treatment: -Tramadol vs. Baclofen prn breakthrough pain until preventive therapy starts helping. ---> Preventive Treatment: -Gabapentin 900 mg tid (she has been self adjusting, and currently stable at 300 mg tid) -Botox #3 today. ---> Follow-up: 3 months for Botox. Last Visit: 09/07/23 Interval Headache Hx: Did very good with the last round, pain was gone for most of the treatment window outside of a couple brief flares. HEADACHE SCORES: 09/05/2023 Headache Questions Days per month with mild/moderate face pain: 15 Days per month with severe face pain: 10 PRN medication usage in the last month: 30 09/05/2023 GE - 2/7 SCORES GE-2 Score 2 09/05/2023 PHQ-9 Score 1 BP 128/87 Pulse 78 Wt 48.5 kg (107 lb) LMP 08/08/2022 (Approximate) BMI 18.84 kg/m Patient name: Cecilia Patel : 1970 ALLERGIES Allergen Reactions Carbamazepine Hives Cats Intolerance Seasonal Allergies Intolerance UNIVERSAL PROTOCOL / SAFETY CHECKLIST Procedure to be Performed: Botox Sign In: A Moment of CARE was completed. Personnel directly involved with the procedure wore the appropriate PPE (Personal Protective Equipment). Patient/Surrogate Stated/Verified: PATIENT VERIFIED(optional for EMERGENT procedures): Patient name, Date of , Relevant allergies, and The intended procedure Time Out Communication: Intended patient and procedure match the source documents. Consent documented and matches the intended procedure. Sign Out: SIGN OUT (optional for EMERGENT procedures): No specimen collected. Mercedes Tao DO UNIVERSAL PROTOCOL / SAFETY CHECKLIST Procedure: Botox for R V2>3 trigeminal neuralgia Informed Consent Consent Obtained: Written [place] Protocol A moment to CARE was completed SIGN IN Personnel directly involved with the procedure wore the appropriate PPE Special Equipment: N/A Patient/Surrogate Stated/Verified: Patient name, Date of , Relevant allergies and Intended procedure TIME OUT Intended patient and procedure match the source document(s) Consent documented and matches the intended procedure No relevant labs, photos, and/or imaging studies were applicable for review. No correct side/site applicable for marking and visibility. No medications required for procedure. No fire risk assessment and interventions applicable. No implant(s) inserted. SIGN OUT No specimen collected. No instruments, equipment or retained foreign bodies applicable. Post-procedure follow-up management communicated and Plan of Care Visit completed when applicable Written Consent Obtained: Written I have reviewed the Lit Status Assessment responses and discussed these with the patient: yes The risks, benefits and anticipated outcomes of the procedure, the risks and benefits of the alternatives to the procedure, and the roles and tasks of the personnel to be involved, were discussed with the patient, and the patient consents to the procedure and agrees to proceed. Informed consent signed. UNIVERSAL PROTOCOL / SAFETY CHECKLIST Procedure to be performed: BOTOX for trigeminal neuralgia in the R V2>3 distribution (injections performed bilateral for muscle symmetry) Sign in Communication: completed Time Out: Team Confirms the Correct Patient, Correct Procedure, Correct Site and Site Marking, Correct Position (if applicable). Time: 1125 Affirmation of Time Out: completed Sign Out Discussion: completed 100 units of Botox A (lot # [id number], expiration date 06/2026) was diluted in 2 cc normal saline. Botox Sites: Site R L 1 2 3 4 5 6 7 8 5 9 2.5 10 2.5 11 2.5 12 2.5 13 2.5 2.5 14 2.5 15 2.5 2.5 16 2.5 2.5 17 2.5 18 2.5 19 2.5 20 2.5 2.5 21 2.5 2.5 22 23 5 5 24 2.5 2.5 25 2.5 2.5 26 2.5 27 2.5 Units used: 75 Units wasted: 25 Mercedes Tao DO [facility] [place] [facility] [address] [place] [address] Pager [phone] Prior Therapies Duration of Use Dose Side effect Analgesic Diclofenac (Voltaren, Cataflam, Cambia) Hydrocodone/Acetaminophen (Vicodin, [place]) Hydromorphone (Dilaudid) Ketorolac (Toradol) Meloxicam (Mobic) Meperidine (Demerol) Oxycodone/Acetaminophen (Percocet) Tramadol (Ultram) Anti-Anxiety Lorazepam (Ativan) Anti-Convulsant Carbamazepine (Tegretol) Gabapentin (Neurontin) Anti-Depressant and Antipsychotic Duloxetine (Cymbalta) Antiemetics Ondansetron Promethazine Anti-Migraine Sumatriptan (Imitrex, [place]) Botulinum Toxin Onabotulinum Toxin A (Botox) for trigeminal neuralgia Muscle Relaxer Baclofen (Lioresal) Cyclobenzaprine (Flexeril) Other Medications Dexamethasone (Decadron) Methylprednisolone (Medrol) Prednisone Over the Counter Medications Acetaminophen (Tylenol) Acetaminophen/Aspirin/Caffeine (Excedrin, Goody s) Aspirin Ibuprofen (Advil, Motrin) Naproxen sodium (Aleve) Mercedes Tao DO PMH: PAST MEDICAL HISTORY No date: Allergic rhinitis No date: Heart murmur 02/2023: IFG (impaired fasting glucose) No date: Migraine headache Comment: only have had 1-2 in her life per pt 12/2021: Osteopenia of spine No date: PONV (postoperative nausea and vomiting) 10/2015: Trigeminal neuralgia of right side of face SOC: Social History Tobacco Use Smoking status: Never Smokeless tobacco: Never Vaping Use Vaping status: Never Used Substance Use Topics Alcohol use: Yes Comment: occassional Drug use: No MEDS: Current Outpatient Medications Medication Sig gabapentin (NEURONTIN) 600 mg tablet Take 1.5 tablets by mouth three times a day. cyanocobalamin (VITAMIN B-12) 1,000 mcg tab Take 2 tablets by mouth once daily. Ferrous Sulfate (SLOW FE) 142 mg (45 mg iron) TbER Take 1 tablet by mouth twice daily. With food, iron supplement baclofen (LIORESAL) 10 mg tablet Take 1 tablet by mouth three times daily as needed (facial pain). LORazepam (ATIVAN) 0.5 mg Take 0.25 mg by mouth. ascorbic acid, vitamin C, (VITAMIN C) 250 mg tablet Take 1 tablet by mouth once daily. Cholecalciferol, Vitamin D3, (VITAMIN D-3) 50 mcg (2,000 unit) cap Take 1 capsule by mouth once daily. Biotin 10,000 mcg cap Take 1 capsule by mouth once daily. Zinc Sulfate 25 mg zinc (110 mg) tab Patient takes 22.5 mg daily Herbal Drugs tab Magnesium 50 mg daily Current Facility-Administered Medications Medication Dose Route Frequency perflutren lipid microspheres 1.3 mL in NaCl (PF) 0.9% 10 mL injection (DEFINITY) INTRAVENOUS DIRECTED PRN sodium chloride 0.9 % (flush) 10 mL (BD POSIFLUSH) 10 mL INTRAVENOUS DIRECTED PRN REVIEW OF SYSTEMS: Review of system : unchanged from the previous visit (sleep patterns, mood, energy, appetite, stress, exercising). Physical Examination: BP 128/87 Pulse 78 Wt 48.5 kg (107 lb) LMP 08/08/2022 (Approximate) BMI 18.84 kg/m GEN: Alert. NAD. Normal affect. Cooperative. NEUROLOGICAL: A+O x 3. Attentive. Thought process and content unremarkable. Follows commands appropriately. Speech fluent. Mercedes Tao DO [facility] [place] Department [facility] [address] [place] [address], [address] [address] Level of service: Est level 2 (10-19 min). Time spent 18 min on the day of service, which included preparing to see the patient, [id number] patient care, completing clinical documentation, obtaining and/or reviewing separately obtained history, performing a medically appropriate examination, counseling and educating the patient/family/caregiver, ordering medications, tests, or procedures, and communicating with other HCPs (not separately reported). Medical Decision Making: Medical Decision Making Level: 1 - N/A cc: Dell Pickard [address] [place] [address] documented in this encounter [facility] 04-15-2024 Telephone encounter Note Scheduled for 04/23/24 for Botox f/u [facility] 04-15-2024 Miscellaneous Notes Scheduled for 04/23/24 for Botox f/u === PHARMACY TEAM ==== ADDITIONAL INFORMATION NEEDED/REQUESTED Case Submitted: No Request Type: Provider Date of Service: 04/23/2024 Additional Information Needed: Can you please find out if the patient had a better response to the 2nd injection. [facility] will require this Request from [facility]or by: N/A Email Sent to: Telephone encounter to [facility] Yesica Beavers [facility] Requested Clinicals/Information Sent: N/A === PHARMACY TEAM ==== ADDITIONAL INFORMATION NEEDED/REQUESTED Case Submitted: No Request Type: Provider Date of Service: 04/23/2024 Additional Information Needed: Can you please find out if the patient had a better response to the 2nd injection. [facility] will require this Request from [facility] by: N/A Email Sent to: Telephone encounter to 1 Yesica Beavers [facility] Requested Clinicals/Information Sent: N/A === PHARMACY TEAM ==== ADDITIONAL INFORMATION NEEDED/REQUESTED Case Submitted: No Request Type: Provider Date of Service: 04/23/2024 Additional Information Needed: Can you please find out if the patient had a better response to the 2nd injection. [facility] will require this Request from [facility] by: N/A Email Sent to: Telephone encounter to [facility] Beavers [place] Requested Clinicals/Information Sent: N/A documented in this encounter [facility] 04-05-2024 Telephone encounter Note === PHARMACY TEAM ==== ADDITIONAL INFORMATION NEEDED/REQUESTED Case Submitted: No Request Type: Provider Date of Service: 04/23/2024 Additional Information Needed: Can you please find out if the patient had a better response to the 2nd injection. [facility] will require this Request from [facility] by: N/A Email Sent to: Telephone encounter to 1 Yesica Beavers [place] Requested Clinicals/Information Sent: N/A [facility] 04-02-2024 Telephone encounter Note === PHARMACY TEAM ==== ADDITIONAL INFORMATION NEEDED/REQUESTED Case Submitted: No Request Type: Provider Date of Service: 04/23/2024 Additional Information Needed: Can you please find out if the patient had a better response to the 2nd injection. [facility] will require this Request from [facility] by: N/A Email Sent to: Telephone encounter to 1 Yesica Beavers [place]ae Requested Clinicals/Information Sent: N/A [facility] 03-28-2024 Telephone encounter Note === PHARMACY TEAM ==== ADDITIONAL INFORMATION NEEDED/REQUESTED Case Submitted: No Request Type: Provider Date of Service: 04/23/2024 Additional Information Needed: Can you please find out if the patient had a better response to the 2nd injection. [facility] will require this Request from [facility] by: N/A Email Sent to: Telephone encounter to [facility] Yesica Beavers [facility] Requested Clinicals/Information Sent: N/A [facility] 03-27-2024 History of Present illness Narrative CC: Cecilia Patel is a 53 year old adult who presents to the office for physical HPI: Trigeminal neuralgia,in he fall 2022 she had been in a flare up after her dental procedure and root canal on right lower jaw, has been using the Tramadol and Gabapentin per Neurologist, just recently had a botox injection and does feel that this has helped her a little bit as well by Dr. Tao Osteopenia lumbar, BMD 12/2021 and 01/2024, Not always consistently performing weight bearing exercise. Does take her supplements. She wants to restart her lifting routine Mitral valve regurgitation, had echo last in 2022, Does have fatigue, otherwise no cardiac or pulm symptoms Diagnosed with recent labs with IFG, has a fmhx of diabetes, will diet control Snoring, some daytime fatigue, not sure if having any PND. Daughter has noticed her snoring. No hx of sleep apnea PAST MEDICAL HISTORY Diagnosis Date Allergic rhinitis Heart murmur IFG (impaired fasting glucose) 02/2023 Migraine headache only have had 1-2 in her life per pt Osteopenia of spine 12/2021 PONV (postoperative nausea and vomiting) Trigeminal neuralgia of right side of face 10/2015 PAST SURGICAL HISTORY Procedure Laterality Date BREAST AUGMENTATION W/PROSTHETIC IMPLANT 1995 CORRECTION OF BUNION Right LIG/TRNSXJ FLP TUBE ABDL/VAG APPR UNI/BI Tubal ligation PAST SURGICAL HISTORY OF 2005, 2007 x , [place] (first emergency) Social History: Social History Tobacco Use Smoking status: Never Smokeless tobacco: Never Vaping Use Vaping Use: Never used Substance Use Topics Alcohol use: Yes Comment: occassional Drug use: No FAMILY HISTORY Problem Relation Age of Onset Hypertension Mother Coronary Artery Disease Father age 50 Lipids Sister Osteoporosis Maternal Grandmother Osteoporosis Maternal Aunt Lipids Paternal Aunt Current Outpatient prescriptions: gabapentin (NEURONTIN) 600 mg tablet^Take 1.5 tablets by mouth three times a day.^Disp: 135 tablet^Rfl: 11 cyanocobalamin (VITAMIN B-12) 1,000 mcg tab^Take 2 tablets by mouth once daily.^Disp: 60 tablet^Rfl: 11 Ferrous Sulfate (SLOW FE) 142 mg (45 mg iron) TbER^Take 1 tablet by mouth twice daily. With food, iron supplement^Disp: 60 tablet^Rfl: 11 baclofen (LIORESAL) 10 mg tablet^Take 1 tablet by mouth three times daily as needed (facial pain).^Disp: 60 tablet^Rfl: 11 LORazepam (ATIVAN) 0.5 mg^Take 0.25 mg by mouth.^Disp: ^Rfl: ascorbic acid, vitamin C, (VITAMIN C) 250 mg tablet^Take 1 tablet by mouth once daily.^Disp: ^Rfl: Cholecalciferol, Vitamin D3, (VITAMIN D-3) 50 mcg (2,000 unit) cap^Take 1 capsule by mouth once daily.^Disp: ^Rfl: Biotin 10,000 mcg cap^Take 1 capsule by mouth once daily.^Disp: ^Rfl: Zinc Sulfate 25 mg zinc (110 mg) tab^Patient takes 22.5 mg daily^Disp: ^Rfl: Herbal Drugs tab^Magnesium 50 mg daily^Disp: ^Rfl: Allergies: ALLERGIES Allergen Reactions Carbamazepine Hives Cats Intolerance Seasonal Allergies Intolerance ROS: See HPI PE: 03/27/24 0813 BP: 118/80 Pulse: 76 Resp: 12 Temp: 36.1 C (97 F) TempSrc: Left Tympanic Weight: 47.2 kg (104 lb) Height: 160.5 cm (5' 3.19) Gen: A&O, NAD, non-toxic appearing, Pleasant, cooperative HEENT: NT/AC, PERRLA, EOMs intact b/l, nares clear and patent b/l, pharynx without erythema, exudate or lesions. Uvula midline. MMM, EACs without erythema or debris. TMs pearly santoro with intact landmarks b/l. Neck: supple, No cervical LAD, no thyromegaly, no carotid bruits CV: RRR, normal S1 and S2, 1/6 HSM LLSB murmurs, no gallops, no rubs, Pulses 2+ and symmetric in UE and LE b/l Lungs: normal respiratory effort, CTA b/l, no wheezing or rhonchi or rales Abd: soft, NT, ND, +BS, no hepatosplenomegaly MS: FROM all 4 extremities Neuro: CN II-XII intact b/l, strength 5/5 b/l UE and LE, DTRs 2/4 UE and LE, sensation intact. Skin: warm, dry, intact, No rashes or lesions on exposed skin. No edema, normal pulses ASSESSMENT/PLAN: 1. Well adult exam - ICD9: V70.0, ICD10: Z00.00 (primary diagnosis) - Counseled on healthy diet and regular exercise 2. Trigeminal neuralgia of right side of face - ICD9: 350.1, ICD10: G50.0 Recheck labs in 6 months Stable, chronic - COMPREHENSIVE METABOLIC PANEL - COMPLETE BLOOD COUNT 3. Osteopenia of spine - ICD9: 733.90, ICD10: M85.88 - Reviewed the need for Calcium and Vitamin D supplements and weight bearing exercise as tolerated - THYROID STIMULATING HORMONE - VITAMIN D 25 HYDROXY 4. Vitamin B12 deficiency - ICD9: 266.2, ICD10: E53.8 Continue supplement 5. Iron deficiency anemia, unspecified iron deficiency anemia type - ICD9: 280.9, ICD10: D50.9 stable 6. IFG (impaired fasting glucose) - ICD9: 790.21, ICD10: R73.01 Needs to cut back on high GI foods as d/w her today and given information Diet controlled - HEMOGLOBIN A1C 7. Dyslipidemia - ICD9: 272.4, ICD10: E78.5 - Controlled - Counseled on healthy diet and regular exercise - LIPID PANEL BASIC 8. Mitral valve insufficiency, acquired - ICD9: 424.0, ICD10: I34.0 stable 9. Snoring - ICD9: 786.09, ICD10: R06.83 Consider HSAT for TAYLOR screening as well as consider follow up with ENT for primary snoring disorder potential cause as well 10. Fatigue, unspecified type - ICD9: 780.79, ICD10: R53.83 See above Dell Pickard DO To ER if develops chest pain, shortness of breath, or severe worsening of symptoms. Discussed risks, benefits, alternatives, and potential side effects of medications. Patient expressed understanding and agreed with the plan. Dell Pickard DO [address] [place] [address] documented in this encounter [facility] 03-22-2024 Telephone encounter Note Patient notified of results and provider's instructions. Patient verbalizes understanding. Irena Pino RN [facility] 03-22-2024 Miscellaneous Notes Patient notified of results and provider's instructions. Patient verbalizes understanding. Irena Pino RN TC to pt. LM to call office, ask for triage nurse to get results. Leanna Garcia LPN Please inform patient that her labs show that her A1c is up again at 5.9% but her cholesterol is much improved and almost normal. Needs to work on cutting back on sugars and starches in her diet as she is able. Her vitamin d levels are slightly high. Recommend taking every other day her vitamin d supplement Dell Pickard DO documented in this encounter [facility] 03-20-2024 Telephone encounter Note TC to pt. LM to call office, ask for triage nurse to get results. Leanna Garcia LPN [facility] 03-20-2024 Telephone encounter Note Please inform patient that her labs show that her A1c is up again at 5.9% but her cholesterol is much improved and almost normal. Needs to work on cutting back on sugars and starches in her diet as she is able. Her vitamin d levels are slightly high. Recommend taking every other day her vitamin d supplement Dell iPckard DO [facility] 01-30-2024 Telephone encounter Note Pt informed, verbalized understanding. Anabell Cabral MA [facility] 01-30-2024 Miscellaneous Notes Pt informed, verbalized understanding. Anabell Cabral MA Please let patient know that her bone density continues to show osteopenia of the spine BMD is showing some beginning bone mass loss (osteopenia), which may increase the risk of insufficiency fractures. I suggest 1200-1500mg of Calcium carbonate into 2 doses daily as well as at least 1000 units of Vitamin D3 daily. Weight bearing exercise, if not already doing, and f/u exam in 2 years for bone density. Dell Pickard DO documented in this encounter [facility] 01-30-2024 Telephone encounter Note Please let patient know that her bone density continues to show osteopenia of the spine BMD is showing some beginning bone mass loss (osteopenia), which may increase the risk of insufficiency fractures. I suggest 1200-1500mg of Calcium carbonate into 2 doses daily as well as at least 1000 units of Vitamin D3 daily. Weight bearing exercise, if not already doing, and f/u exam in 2 years for bone density. Dell Pickard DO [facility] 01-29-2024 History of Present illness Narrative Radiology Service Progress Note PATIENT NAME: Cecilia Patel DATE OF SERVICE: January 29, 2024 TIME: 9:31 AM PATIENT IDENTITY VERIFICATION COMPLETED USING TWO (2) IDENTIFIERS: Name and Date of confirmed by patient verbally. FALL SCREENING: Has the patient had 2 falls in the last year or 1 fall with injury or currently using an Ambulatory Assistive Device (Walker, Cane, Wheelchair, Crutches, etc.)? No PATIENT GENDER DATA: Female. status: : No status: NO. PATIENT RELEVANT IMPLANT DATA REVIEWED: Not Applicable PATIENT PRESENTS WITH AN IMPLANTABLE OR ATTACHED EVENING OR NIGHT NURSE SUPERVISOR: No RADIOLOGY DEPARTMENT: Bone Density PERIPHERAL IV DATA: Not applicable SIGNED BY: RT Ozzy(Kam) January 29, 2024 9:31 AM documented in this encounter [facility] 01-26-2024 History of Present illness Narrative Images from the original note were not included. [facility] [place] DEPARTMENT OF VASCULAR SURGERY OUTPATIENT VISIT DATE January 26, 2024 OUTPATIENT VISIT TYPE ESTABLISHED SERVICE DATE: 01/26/2024 SERVICE TIME: 9:53 AM PRIMARY CARE PHYSICIAN: Dell Pickard DO HISTORY OF PRESENT ILLNESS: Cecilia is a 53 year old adult who presents today for a vascular surgery follow-up visit for symptomatic varicose veins. PAST MEDICAL HISTORY Diagnosis Date Allergic rhinitis Heart murmur IFG (impaired fasting glucose) 02/2023 Migraine headache only have had 1-2 in her life per pt Osteopenia of spine 12/2021 PONV (postoperative nausea and vomiting) Trigeminal neuralgia of right side of face 10/2015 PAST SURGICAL HISTORY Procedure Laterality Date BREAST AUGMENTATION W/PROSTHETIC IMPLANT 1995 CORRECTION OF BUNION Right LIG/TRNSXJ FLP TUBE ABDL/VAG APPR UNI/BI Tubal ligation PAST SURGICAL HISTORY OF 2005, [address] [place] [address] (first emergency) SOCIAL HISTORY Social History Tobacco Use Smoking status: Never Smokeless tobacco: Never Vaping Use Vaping Use: Never used Substance Use Topics Alcohol use: Yes Comment: occassional Drug use: No MEDICATIONS: traMADol (ULTRAM) 50 mg tablet^Take 1 tablet by mouth every 8 hours as needed for pain for up to 30 days.^Disp: 30 tablet^Rfl: 1 gabapentin (NEURONTIN) 600 mg tablet^Take 1.5 tablets by mouth three times a day.^Disp: 135 tablet^Rfl: 11 cyanocobalamin (VITAMIN B-12) 1,000 mcg tab^Take 2 tablets by mouth once daily.^Disp: 60 tablet^Rfl: 11 Ferrous Sulfate (SLOW FE) 142 mg (45 mg iron) TbER^Take 1 tablet by mouth twice daily. With food, iron supplement^Disp: 60 tablet^Rfl: 11 baclofen (LIORESAL) 10 mg tablet^Take 1 tablet by mouth three times daily as needed (facial pain).^Disp: 60 tablet^Rfl: 11 LORazepam (ATIVAN) 0.5 mg^Take 0.25 mg by mouth.^Disp: ^Rfl: ascorbic acid, vitamin C, (VITAMIN C) 250 mg tablet^Take 1 tablet by mouth once daily.^Disp: ^Rfl: Cholecalciferol, Vitamin D3, (VITAMIN D-3) 50 mcg (2,000 unit) cap^Take 1 capsule by mouth once daily.^Disp: ^Rfl: Biotin 10,000 mcg cap^Take 1 capsule by mouth once daily.^Disp: ^Rfl: Zinc Sulfate 25 mg zinc (110 mg) tab^Patient takes 22.5 mg daily^Disp: ^Rfl: Herbal Drugs tab^Magnesium 50 mg daily^Disp: ^Rfl: ALLERGIES: ALLERGIES Allergen Reactions Carbamazepine Hives Cats Intolerance Seasonal Allergies Intolerance PHYSICAL EXAM: BP 110/70 (BP Site: Left Arm, BP Position: Sitting, BP Cuff Size: Regular Adult) Pulse 82 LMP 08/08/2022 (Approximate) SpO2 100% Patient was placed in trendelenburg position. Area cleansed with isopropyl alcohol. Using a 25 gauge butterfly needle the varicose veins on the right yuan leg were accessed with ultrasound guidance. Excellent blood return confirm access. A total of 1 cc of foam was injected. Foam was created with 0.5% Asclera in 1:3 ratio with air. The patient was placed in the supine position and the bilateral lower extremities were cleansed with isopropyl alcohol. Syringes containing 2 mL of 0.5% Asclera were prepared and veins in the anterior and lateral left leg were injected using an angled 30-gauge needle. A total of 1 mL of solution injection. Cotton balls were used to apply pressure secured down with paper tape. Once all injections were completed the legs were cleansed with isopropyl alcohol and the patient put on compression. There were no complications and the patient tolerated the procedure well. IMPRESSION: Cecilia Patel is a 53 year old adult with symptomatic varicose veins . PLAN and RECOMMENDATIONS: Reviewed home going instructions Follow up in 3 months SIGNATURE: Chasity Ritter DO PATIENT NAME: Cecilia Patel DATE: January 26, 2024 TIME: 9:53 AM documented in this encounter [facility] 01-26-2024 Instructions Roseanne Tate RN - 01/26/2024 9:26 AM EDT Post Sclerotherapy Instructions If you have a bandage on your leg, leave it on for 24 hours or as instructed, then replace with compression stockings as ordered. You may take a shower when the bandage is removed or you are instructed to remove the compression stockings. Apply rubbing alcohol to the vein puncture site(s) after the shower. No baths, swimming pools or hot tubs for 72 hours After the first shower, you may wear your compression stockings, if ordered, during the day for 2 weeks. The more you wear your stockings, the better the results will be. Activity of normal daily living may be resumed when you return home. Elevate your leg above your heart whenever you are sitting or resting. Take it easy for 2 days. You are encouraged to walk at least 20 minutes every several hours during the day. Walking will help the leg's recovery process. Please also refrain from vigorous gym exercises or running for 7 days following your procedure. Reviewed signs and symptoms of infection, call office or go to ER if these occur. Avoid exposure to excessive sun during the 2 weeks following the procedure. If you notice discoloration over the vein treated, avoid excessive sun for one year. The staining may go away over time and may take up to 1-2 years to completely disappear You should not require any pain medications. If you experience mild pain, take over the counter medications of your choice: Tylenol, Advil, etc. Icing the sites for 5 minutes twice a day for the first 2 days can help with the inflammation and discomfort Your treatment was performed with Polidocanol solution. This should damage the vessel wall and thus cause eliminations of the vein. Mild bruising may occur. You may notice hardening of the vein in the areas treated. You will gradually notice the veins fading. This can take 1-6 months or longer for you to notice the full effect. If any skin blistering is noticed, please call the office. documented in this encounter [facility] 01-12-2024 History of Present illness Narrative Headache Center - Botox Follow-up Visit ASSESSMENT: 53 yof with history significant for rare migraine without aura (1/year), with R V2-3 trigeminal neuralgia. Neurosurgery recommended MVD given the classical nature of the pain and visualized arterial loop touching the trigeminal nerve on imaging, so this is an option if things are not improving. PLAN: (Please see typed patient instructions for detailed instructions) ---> Acute Treatment: -Tramadol vs. Baclofen prn breakthrough pain until preventive therapy starts helping. ---> Preventive Treatment: -Gabapentin 900 mg tid. -Botox #2 today. Update at 6 weeks if not clearly better and we may add Vimpat. ---> Follow-up: 3 months for Botox. Last Visit: 09/07/23 Interval Headache Hx: [place] like she was noticing some improvement a couple weeks after the last treatment. However, ended up having a crown placed on the R which she was uncertain whether it could have added to the pain. Gets on and off days of pain and no pain. HEADACHE SCORES: 09/05/2023 Headache Questions Days per month with mild/moderate face pain: 15 Days per month with severe face pain: 10 PRN medication usage in the last month: 30 09/05/2023 GE - 2/7 SCORES GE-2 Score 2 09/05/2023 PHQ-9 Score 1 BP 112/72 Pulse 71 Wt 47.6 kg (105 lb) LMP 08/08/2022 (Approximate) BMI 18.60 kg/m Patient name: Cecilia Patel : 1970 ALLERGIES Allergen Reactions Carbamazepine Hives Cats Intolerance Seasonal Allergies Intolerance UNIVERSAL PROTOCOL / SAFETY CHECKLIST Procedure to be Performed: Botox Sign In: A Moment of CARE was completed. Personnel directly involved with the procedure wore the appropriate PPE (Personal Protective Equipment). Patient/Surrogate Stated/Verified: PATIENT VERIFIED(optional for EMERGENT procedures): Patient name, Date of , Relevant allergies, and The intended procedure Time Out Communication: Intended patient and procedure match the source documents. Consent documented and matches the intended procedure. Sign Out: SIGN OUT (optional for EMERGENT procedures): No specimen collected. Mercedes Tao DO UNIVERSAL PROTOCOL / SAFETY CHECKLIST Procedure: Botox for R V2>3 trigeminal neuralgia Informed Consent Consent Obtained: Written [place] Protocol A moment to CARE was completed SIGN IN Personnel directly involved with the procedure wore the appropriate PPE Special Equipment: N/A Patient/Surrogate Stated/Verified: Patient name, Date of , Relevant allergies and Intended procedure TIME OUT Intended patient and procedure match the source document(s) Consent documented and matches the intended procedure No relevant labs, photos, and/or imaging studies were applicable for review. No correct side/site applicable for marking and visibility. No medications required for procedure. No fire risk assessment and interventions applicable. No implant(s) inserted. SIGN OUT No specimen collected. No instruments, equipment or retained foreign bodies applicable. Post-procedure follow-up management communicated and Plan of Care Visit completed when applicable Written Consent Obtained: Written I have reviewed the Lit Status Assessment responses and discussed these with the patient: yes The risks, benefits and anticipated outcomes of the procedure, the risks and benefits of the alternatives to the procedure, and the roles and tasks of the personnel to be involved, were discussed with the patient, and the patient consents to the procedure and agrees to proceed. Informed consent signed. UNIVERSAL PROTOCOL / SAFETY CHECKLIST Procedure to be performed: BOTOX for trigeminal neuralgia in the R V2>3 distribution (injections performed bilateral for muscle symmetry) Sign in Communication: completed Time Out: Team Confirms the Correct Patient, Correct Procedure, Correct Site and Site Marking, Correct Position (if applicable). Time: 1138 Affirmation of Time Out: completed Sign Out Discussion: completed 100 units of Botox A (lot # [id number], expiration date 01/2026) was diluted in 2 cc normal saline. Standard Injection sites/doses performed symmetrically within distributions below (V1-3): All trigeminal nerve distributions (V1-3) include the same 3 initial overlapping sites: 1/2 inch anterior to: 1. superior ear where lobe meets cheek; 2. tragus; 3. inferior ear where lobe meets cheek) of 2.5 units each = 7.5 units per side x 2 sides = 15 units + -Right V2: 10 sites of 2.5 units each (25 units) + Infraorbital nerve: 1 site of 5 units (5 units) = 30 units -Right V3: 6 sites of 2.5 units each (15 units) Total Units used: 60 units Total Units wasted: 40 units Patient tolerated the procedure well. Prior Therapies Duration of Use Dose Side effect Analgesic Diclofenac (Voltaren, Cataflam, Cambia) Hydrocodone/Acetaminophen (Vicodin, [place]) Hydromorphone (Dilaudid) Ketorolac (Toradol) Meloxicam (Mobic) Meperidine (Demerol) Oxycodone/Acetaminophen (Percocet) Tramadol (Ultram) Anti-Anxiety Lorazepam (Ativan) Anti-Convulsant Carbamazepine (Tegretol) Gabapentin (Neurontin) Anti-Depressant and Antipsychotic Duloxetine (Cymbalta) Antiemetics Ondansetron Promethazine Anti-Migraine Sumatriptan (Imitrex, [place]) Botulinum Toxin Onabotulinum Toxin A (Botox) for trigeminal neuralgia Muscle Relaxer Baclofen (Lioresal) Cyclobenzaprine (Flexeril) Other Medications Dexamethasone (Decadron) Methylprednisolone (Medrol) Prednisone Over the Counter Medications Acetaminophen (Tylenol) Acetaminophen/Aspirin/Caffeine (Excedrin, Goody s) Aspirin Ibuprofen (Advil, Motrin) Naproxen sodium (Aleve) Mercedes Tao, DO PMH: PAST MEDICAL HISTORY Diagnosis Date Allergic rhinitis Heart murmur IFG (impaired fasting glucose) 02/2023 Migraine headache only have had 1-2 in her life per pt Osteopenia of spine 12/2021 PONV (postoperative nausea and vomiting) Trigeminal neuralgia of right side of face 10/2015 SOC: Social History Tobacco Use Smoking status: Never Smokeless tobacco: Never Vaping Use Vaping Use: Never used Substance Use Topics Alcohol use: Yes Comment: occassional Drug use: No MEDS: Current Outpatient Medications Medication Sig traMADol (ULTRAM) 50 mg tablet Take 1 tablet by mouth every 8 hours as needed for pain for up to 30 days. gabapentin (NEURONTIN) 600 mg tablet Take 1.5 tablets by mouth three times a day. cyanocobalamin (VITAMIN B-12) 1,000 mcg tab Take 2 tablets by mouth once daily. Ferrous Sulfate (SLOW FE) 142 mg (45 mg iron) TbER Take 1 tablet by mouth twice daily. With food, iron supplement baclofen (LIORESAL) 10 mg tablet Take 1 tablet by mouth three times daily as needed (facial pain). LORazepam (ATIVAN) 0.5 mg Take 0.25 mg by mouth. ascorbic acid, vitamin C, (VITAMIN C) 250 mg tablet Take 1 tablet by mouth once daily. Cholecalciferol, Vitamin D3, (VITAMIN D-3) 50 mcg (2,000 unit) cap Take 1 capsule by mouth once daily. Biotin 10,000 mcg cap Take 1 capsule by mouth once daily. Zinc Sulfate 25 mg zinc (110 mg) tab Patient takes 22.5 mg daily Herbal Drugs tab Magnesium 50 mg daily Current Facility-Administered Medications Medication Dose Route Frequency perflutren lipid microspheres 1.3 mL in NaCl (PF) 0.9% 10 mL injection (DEFINITY) INTRAVENOUS DIRECTED PRN sodium chloride 0.9 % (flush) 10 mL (BD POSIFLUSH) 10 mL INTRAVENOUS DIRECTED PRN REVIEW OF SYSTEMS: Review of system : unchanged from the previous visit (sleep patterns, mood, energy, appetite, stress, exercising). Physical Examination: BP 112/72 Pulse 71 Wt 47.6 kg (105 lb) LMP 08/08/2022 (Approximate) BMI 18.60 kg/m GEN: Alert. NAD. Normal affect. Cooperative. NEUROLOGICAL: A+O x 3. Attentive. Thought process and content unremarkable. Follows commands appropriately. Speech fluent. Mercedes Tao DO [facility] [place] Department [facility] [address] [place] [address] Level of service: Est level 3 (20-29 min). Time spent 20 min on the day of service, which included preparing to see the patient, [id number] patient care, completing clinical documentation, obtaining and/or reviewing separately obtained history, performing a medically appropriate examination, counseling and educating the patient/family/caregiver, and ordering medications, tests, or procedures. Medical Decision Making: Medical Decision Making Level: 1 - N/A cc: Dell Pickard [address] [place] [address] documented in this encounter [facility] 12-28-2023 Telephone encounter Note Physician: Call from patient requesting refill. Please E-Scribe Last office visit 09/07/23 with Future OV: 01/12/2024 with Requested Prescriptions Pending Prescriptions Disp Refills traMADol (ULTRAM) 50 mg tablet 20 tablet 0 Sig: Take 1 tablet by mouth every 8 hours as needed for pain for up to 30 days. Pharmacy Name: [facility] 12-28-2023 Miscellaneous Notes Physician: Call from patient requesting refill. Please E-Scribe Last office visit 09/07/23 with Future OV: 01/12/2024 with Requested Prescriptions Pending Prescriptions Disp Refills traMADol (ULTRAM) 50 mg tablet 20 tablet 0 Sig: Take 1 tablet by mouth every 8 hours as needed for pain for up to 30 days. Pharmacy Name: [facility] documented in this encounter [facility] 12-15-2023 History of Present illness Narrative Images from the original note were not included. [facility] [place] DEPARTMENT OF VASCULAR SURGERY OUTPATIENT VISIT DATE December 27, 2023 OUTPATIENT VISIT TYPE ESTABLISHED PRIMARY CARE PHYSICIAN: Dell Pickard DO HISTORY OF PRESENT ILLNESS: Jorge is a 53 year old adult who presents today for a vascular surgery follow-up visit for symptomatic varicose veins. We reviewed procedure and consent obtained PAST MEDICAL HISTORY Diagnosis Date Allergic rhinitis Heart murmur IFG (impaired fasting glucose) 02/2023 Migraine headache only have had 1-2 in her life per pt Osteopenia of spine 12/2021 PONV (postoperative nausea and vomiting) Trigeminal neuralgia of right side of face 10/2015 PAST SURGICAL HISTORY Procedure Laterality Date BREAST AUGMENTATION W/PROSTHETIC IMPLANT 1995 CORRECTION OF BUNION Right LIG/TRNSXJ FLP TUBE ABDL/VAG APPR UNI/BI Tubal ligation PAST SURGICAL HISTORY OF 2005, [address] [place] [address] (first emergency) SOCIAL HISTORY Social History Tobacco Use Smoking status: Never Smokeless tobacco: Never Vaping Use Vaping Use: Never used Substance Use Topics Alcohol use: Yes Comment: occassional Drug use: No MEDICATIONS: gabapentin (NEURONTIN) 600 mg tablet^Take 1.5 tablets by mouth three times a day.^Disp: 135 tablet^Rfl: 11 traMADol (ULTRAM) 50 mg tablet^Take 1 tablet by mouth every 8 hours as needed for pain for up to 30 days.^Disp: 20 tablet^Rfl: 0 cyanocobalamin (VITAMIN B-12) 1,000 mcg tab^Take 2 tablets by mouth once daily.^Disp: 60 tablet^Rfl: 11 Ferrous Sulfate (SLOW FE) 142 mg (45 mg iron) TbER^Take 1 tablet by mouth twice daily. With food, iron supplement^Disp: 60 tablet^Rfl: 11 baclofen (LIORESAL) 10 mg tablet^Take 1 tablet by mouth three times daily as needed (facial pain).^Disp: 60 tablet^Rfl: 11 LORazepam (ATIVAN) 0.5 mg^Take 0.25 mg by mouth.^Disp: ^Rfl: ascorbic acid, vitamin C, (VITAMIN C) 250 mg tablet^Take 1 tablet by mouth once daily.^Disp: ^Rfl: Cholecalciferol, Vitamin D3, (VITAMIN D-3) 50 mcg (2,000 unit) cap^Take 1 capsule by mouth once daily.^Disp: ^Rfl: Biotin 10,000 mcg cap^Take 1 capsule by mouth once daily.^Disp: ^Rfl: Zinc Sulfate 25 mg zinc (110 mg) tab^Patient takes 22.5 mg daily^Disp: ^Rfl: Herbal Drugs tab^Magnesium 50 mg daily^Disp: ^Rfl: ALLERGIES: ALLERGIES Allergen Reactions Cats Intolerance Seasonal Allergies Intolerance PHYSICAL EXAM: BP 116/76 (BP Site: Left Arm, BP Position: Sitting, BP Cuff Size: Regular Adult) Pulse 71 LMP 08/08/2022 (Approximate) SpO2 98% Gen- no distress Ext- spider veins bilaterally Patient was placed in trendelenburg position. Area cleansed with isopropyl alcohol. Using a 25 gauge butterfly needle the varicose veins on the left leg were accessed with ultrasound guidance. Excellent blood return confirm access. A total of 2 cc of foam was injected. Foam was created with 0.5% Asclera in 1:3 ratio with air. Pressure dressing of cotton ball, paper tape, and coban applied. The patient was placed in the supine position and the bilateral lower extremities were cleansed with isopropyl alcohol. Syringes containing 2 mL of 0.5% Asclera were prepared and veins in the anterior, medial, posterior, and lateral legs were injected using an angled 30-gauge needle. A total of 0.5 mL of solution injection. Cotton balls were used to apply pressure secured down with paper tape. Once all injections were completed the legs were cleansed with isopropyl alcohol and the patient put on coban compression wrap. There were no complications and the patient tolerated the procedure well. Diagnostic tests reviewed for today's visit: Most recent labs Most recent imaging IMPRESSION: Jorge is a 53 year old adult with symptomatic varicose veins . PLAN and RECOMMENDATIONS: Reviewed home going instructions Follow up as needed documented in this encounter [facility] 12-15-2023 Instructions Roseanne Tate RN - 12/15/2023 1:03 PM EDT Post Sclerotherapy Instructions If you have a bandage on your leg, leave it on for 24 hours or as instructed, then replace with compression stockings as ordered. You may take a shower when the bandage is removed or you are instructed to remove the compression stockings. Apply rubbing alcohol to the vein puncture site(s) after the shower. No baths, swimming pools or hot tubs for 72 hours After the first shower, you may wear your compression stockings, if ordered, during the day for 2 weeks. The more you wear your stockings, the better the results will be. Activity of normal daily living may be resumed when you return home. Elevate your leg above your heart whenever you are sitting or resting. Take it easy for 2 days. You are encouraged to walk at least 20 minutes every several hours during the day. Walking will help the leg's recovery process. Please also refrain from vigorous gym exercises or running for 7 days following your procedure. Reviewed signs and symptoms of infection, call office or go to ER if these occur. Avoid exposure to excessive sun during the 2 weeks following the procedure. If you notice discoloration over the vein treated, avoid excessive sun for one year. The staining may go away over time and may take up to 1-2 years to completely disappear You should not require any pain medications. If you experience mild pain, take over the counter medications of your choice: Tylenol, Advil, etc. Icing the sites for 5 minutes twice a day for the first 2 days can help with the inflammation and discomfort Your treatment was performed with Polidocanol solution. This should damage the vessel wall and thus cause eliminations of the vein. Mild bruising may occur. You may notice hardening of the vein in the areas treated. You will gradually notice the veins fading. This can take 1-6 months or longer for you to notice the full effect. If any skin blistering is noticed, please call the office. documented in this encounter [facility] 12-08-2023 Miscellaneous Notes Spoke with pt on the phone. Extended apologies on scheduling error. Informed pt that Tramadol refill was approved. Added pt to Dr Tao's wait list and will check schedule daily for sooner openings, pt very upset but verbalized understanding. documented in this encounter [facility] 12-08-2023 Miscellaneous Notes Physician: Tao Call from patient requesting refill. Please E-Scribe Last office visit 07/08/24 with Tao in person Next office visit 01/12/24 with Tao in person Requested Prescriptions Pending Prescriptions Disp Refills traMADol (ULTRAM) 50 mg tablet 20 tablet 0 Sig: Take 1 tablet by mouth every 8 hours as needed for pain for up to 30 days. Pharmacy Name: [facility] documented in this encounter [facility] 12-08-2023 Miscellaneous Notes Physician: Tao Call from patient requesting refill. Please E-Scribe Last office visit 09/07/23 with Tao in person Next office visit 01/12/24 with Tao in person Requested Prescriptions Pending Prescriptions Disp Refills gabapentin (NEURONTIN) 600 mg tablet 135 tablet 11 Sig: Take 1.5 tablets by mouth three times a day. Pharmacy Name: [facility] documented in this encounter [facility] 11-29-2023 Miscellaneous Notes Physician: Tao Call from patient requesting refill. Please E-Scribe Last office visit 09/07/2023with in person Next office visit 12/08/2023 with Angely Requested Prescriptions Pending Prescriptions Disp Refills traMADol (ULTRAM) 50 mg tablet 30 tablet 2 Sig: Take 1 tablet by mouth every 8 hours as needed for pain for up to 30 days. Pharmacy Name: [facility] documented in this encounter [facility] 11-21-2023 Miscellaneous Notes Spoke to patient to schedule. Encounter closed. PT is requesting a return call to schedule Slcero with Dr. Ritter at [phone]. documented in this encounter [facility] 08-02-2023 Miscellaneous Notes Request has been submitted and is pending Letter of Medical Necessity written and saved to chart. Also copied in botox referral. Please send to insurance with chart notes. Ivanna Zimmer RN === PHARMACY TEAM ==== ADDITIONAL INFORMATION NEEDED/REQUESTED Additional Information Needed: Per [facility] policy, The diagnosis is not Covered Botox is FDA approved for overactive bladder, urinary incontinence, cervical dystonia, axillary hyperhidrosis, migraine prevention, strabismus and blepharospasm. I will need a letter of Medical necessity and any supporting documentation to send with the request === PHARMACY TEAM ==== ADDITIONAL INFORMATION NEEDED/REQUESTED Additional Information Needed: Per [facility] policy, The diagnosis is not Covered Botox is FDA approved for overactive bladder, urinary incontinence, cervical dystonia, axillary hyperhidrosis, migraine prevention, strabismus and blepharospasm. I will need a letter of Medical necessity and any supporting documentation to send with the request === PHARMACY TEAM ==== ADDITIONAL INFORMATION NEEDED/REQUESTED Additional Information Needed: Per [facility] policy, The diagnosis is not Covered Botox is FDA approved for overactive bladder, urinary incontinence, cervical dystonia, axillary hyperhidrosis, migraine prevention, strabismus and blepharospasm. I will need a letter of Medical necessity and any supporting documentation to send with the request === PHARMACY TEAM ==== ADDITIONAL INFORMATION NEEDED/REQUESTED Additional Information Needed: Office note from 07/04/2023 needs completed and signed documented in this encounter [facility] 08-01-2023 Miscellaneous Notes Physician: Call from patient requesting refill. Please E-Scribe Last OV: 07/04/2023 with Future OV: 09/07/2023 with Patient message: I checked with my pharmacy , [facility], and I do not have any refills left on Tramadol. Can Dr Tao prescribe this again for me? I called and confirmed with the pharmacy - Patient picked up med on 06/29 and 07/26 Requested Prescriptions Pending Prescriptions Disp Refills traMADol (ULTRAM) 50 mg tablet 30 tablet 1 Sig: Take 1 tablet by mouth every 6 hours as needed for pain. Pharmacy Name: [facility] documented in this encounter [facility] 07-13-2023 Miscellaneous Notes Botox referral sent to pharmacy. Ivanna Zimmer RN documented in this encounter [facility] 07-11-2023 History of Present illness Narrative Images from the original note were not included. [facility] [place] DEPARTMENT OF VASCULAR SURGERY OUTPATIENT VISIT DATE July 11, 2023 OUTPATIENT VISIT TYPE ESTABLISHED SERVICE DATE: 07/11/2023 SERVICE TIME: 11:44 AM PRIMARY CARE PHYSICIAN: Dell Pickard DO HISTORY OF PRESENT ILLNESS: Cecilia is a 53 year old adult who presents today for a vascular surgery follow-up visit for symptomatic varicose veins. She has tried compression without improvement in symptoms. She currently is having pain from her trigeminal neuralgia PAST MEDICAL HISTORY Diagnosis Date Allergic rhinitis Heart murmur IFG (impaired fasting glucose) 02/2023 Migraine headache only have had 1-2 in her life per pt Osteopenia of spine 12/2021 PONV (postoperative nausea and vomiting) Trigeminal neuralgia of right side of face 10/2015 PAST SURGICAL HISTORY Procedure Laterality Date BREAST AUGMENTATION W/PROSTHETIC IMPLANT 1995 CORRECTION OF BUNION Right LIG/TRNSXJ FLP TUBE ABDL/VAG APPR UNI/BI Tubal ligation PAST SURGICAL HISTORY OF 2005, [address] [place] [address] (first emergency) SOCIAL HISTORY Social History Tobacco Use Smoking status: Never Smokeless tobacco: Never Vaping Use Vaping Use: Never used Substance Use Topics Alcohol use: Yes Comment: occassional Drug use: No MEDICATIONS: traMADol (ULTRAM) 50 mg tablet^Take 1 tablet by mouth every 6 hours as needed for pain.^Disp: 30 tablet^Rfl: 1 cyanocobalamin (VITAMIN B-12) 1,000 mcg tab^Take 2 tablets by mouth once daily.^Disp: 60 tablet^Rfl: 11 Ferrous Sulfate (SLOW FE) 142 mg (45 mg iron) TbER^Take 1 tablet by mouth twice daily. With food, iron supplement^Disp: 60 tablet^Rfl: 11 gabapentin (NEURONTIN) 600 mg tablet^Take 1.5 tablets by mouth three times daily.^Disp: 135 tablet^Rfl: 11 baclofen (LIORESAL) 10 mg tablet^Take 1 tablet by mouth three times daily as needed (facial pain).^Disp: 60 tablet^Rfl: 11 LORazepam (ATIVAN) 0.5 mg^Take 0.25 mg by mouth.^Disp: ^Rfl: ascorbic acid, vitamin C, (VITAMIN C) 250 mg tablet^Take 1 tablet by mouth once daily.^Disp: ^Rfl: Cholecalciferol, Vitamin D3, (VITAMIN D-3) 50 mcg (2,000 unit) cap^Take 1 capsule by mouth once daily.^Disp: ^Rfl: Biotin 10,000 mcg cap^Take 1 capsule by mouth once daily.^Disp: ^Rfl: Zinc Sulfate 25 mg zinc (110 mg) tab^Patient takes 22.5 mg daily^Disp: ^Rfl: Herbal Drugs tab^Magnesium 50 mg daily^Disp: ^Rfl: ALLERGIES: ALLERGIES Allergen Reactions Cats Intolerance Seasonal Allergies Intolerance PHYSICAL EXAM: BP 131/84 (BP Site: Right Arm, BP Position: Sitting, BP Cuff Size: Regular Adult) Pulse 75 LMP 08/08/2022 (Approximate) SpO2 99% Gen- no distress Ext- bilateral pretibial varicose veins, lateral thigh veins Diagnostic tests reviewed for today's visit: Most recent labs Most recent imaging RIGHT SIDE - DEEP VEINS Negative for acute deep vein thrombosis in vessels visualized. RIGHT SIDE - SUPERFICIAL VEINS Negative for valvular incompetency in the great saphenous vein. Negative for valvular incompetency in the small saphenous vein. LEFT SIDE - DEEP VEINS Negative for acute deep vein thrombosis in vessels visualized. LEFT SIDE - SUPERFICIAL VEINS Negative for valvular incompetency in the great saphenous vein. Small, superficial branches mid/distal thigh coursing lateral and at proximal calf. Negative for valvular incompetency in the small saphenous vein. IMPRESSION: Cecilia Patel is a 53 year old adult with symptomatic varicose veins . PLAN and RECOMMENDATIONS: Recommend ultrasound guided sclerotherapy to treat symptomatic veins. Her symptoms have persisted despite non-interventional therapy and are impacting day to day activities. SIGNATURE: Chasity Ritter DO PATIENT NAME: Cecilia Patel DATE: July 11, 2023 TIME: 11:44 AM documented in this encounter [facility] 07-04-2023 History of Present illness Narrative Headache Center - Follow-up Visit ASSESSMENT: 53 yof with history significant for rare migraine without aura (1/year), with R V2-3 trigeminal neuralgia. Neurosurgery recommended MVD given the classical nature of the pain and visualized arterial loop touching the trigeminal nerve on imaging, so this is an option if things are going in the wrong direction. PLAN: (Please see typed patient instructions for detailed instructions) ---> Acute Treatment: -Percocet vs. Baclofen prn breakthrough pain until preventive therapy starts helping. ---> Preventive Treatment: -Gabapentin 600 mg tid, discussed increasing to 900 mg tid if pain worsens. -Botox discussed as a future consideration and will do when approved, depending on pain. ---> Follow-up: 4 months. Last visit: 10/21/22 Interval Headache Hx: Pain has been good for the past 3 days. February and March didn't have the [place] pain and was doing very well, and into half of April. Then had a tooth infection which led to a root canal a few weeks ago. Getting crown put on in a couple weeks. Gabapentin 600 mg tid. Thinks 900 mg tid may have been a bit more helpful but she came back down in Apr. Using Baclofen tid, unclear about benefit but thinks it is helping. New Labs/Imaging: Component Latest Ref Rng & Units 03/14/2023 Protein, Total 6.3 - 8.0 g/dL 7.1 Albumin 3.9 - 4.9 g/dL 4.6 Calcium 8.5 - 10.2 mg/dL 9.6 Bilirubin, Total 0.2 - 1.3 mg/dL 0.7 Alkaline Phosphatase 38 - 113 U/L 59 AST 14 - 40 U/L 15 ALT 10 - 54 U/L 5 (L) Glucose 74 - 99 mg/dL 93 BUN 9 - 24 mg/dL 14 Creatinine 0.73 - 1.22 mg/dL 0.84 Sodium 136 - 144 mmol/L 140 Potassium 3.7 - 5.1 mmol/L 3.4 (L) Chloride 97 - 105 mmol/L 103 CO2 22 - 30 mmol/L 24 Anion Gap 9 - 18 mmol/L 13 eGFR >=60 mL/min/1.73m 84 WBC 3.70 - 11.00 k/uL 6.40 RBC 4.20 - 6.00 m/uL 4.37 Hemoglobin 13.0 - 17.0 g/dL 12.9 (L) Hematocrit 39.0 - 51.0 % 37.5 (L) MCV 80.0 - 100.0 fL 85.8 MCH 26.0 - 34.0 pg 29.5 MCHC 30.5 - 36.0 g/dL 34.4 RDW-CV 11.5 - 15.0 % 12.5 Platelet Count 150 - 400 k/uL 262 MPV 9.0 - 12.7 fL 10.0 Absolute nRBC <0.01 k/uL <0.01 Cholesterol, Total <200 mg/dL 222 (H) Triglyceride <150 mg/dL 49 HDL Cholesterol >39 mg/dL 105 Non HDL Cholesterol <130 mg/dL 117 Fasting Time hrs 11 VLDL Cholesterol <30 mg/dL 10 TC:HDL Ratio <5.10 2.11 LDL Cholesterol <100 mg/dL 107 (H) LDL:HDL Ratio <2.54 1.02 Hemoglobin A1C 4.3 - 5.6 % 5.7 (H) Estimated Average Glucose mg/dL 117 Vitamin B12 232 - 1,245 pg/mL 577 Vitamin D 25 Hydroxy 31.0 - 80.0 ng/mL 69.3 TSH 0.270 - 4.200 mIU/L 1.280 Free T4 0.9 - 1.7 ng/dL 1.1 MEDS: Current Outpatient Medications Medication Sig traMADol (ULTRAM) 50 mg tablet Take 1 tablet by mouth every 6 hours as needed for pain. gabapentin (NEURONTIN) 100 mg capsule Take 1 capsule by mouth three times daily as needed (nerve pain) for up to 30 days. cyanocobalamin (VITAMIN B-12) 1,000 mcg tab Take 2 tablets by mouth once daily. Ferrous Sulfate (SLOW FE) 142 mg (45 mg iron) TbER Take 1 tablet by mouth twice daily. With food, iron supplement gabapentin (NEURONTIN) 600 mg tablet Take 1.5 tablets by mouth three times daily. baclofen (LIORESAL) 10 mg tablet Take 1 tablet by mouth three times daily as needed (facial pain). LORazepam (ATIVAN) 0.5 mg Take 0.25 mg by mouth. ascorbic acid, vitamin C, (VITAMIN C) 250 mg tablet Take 1 tablet by mouth once daily. Cholecalciferol, Vitamin D3, (VITAMIN D-3) 50 mcg (2,000 unit) cap Take 1 capsule by mouth once daily. Biotin 10,000 mcg cap Take 1 capsule by mouth once daily. Zinc Sulfate 25 mg zinc (110 mg) tab Patient takes 22.5 mg daily Herbal Drugs tab Magnesium 50 mg daily Current Facility-Administered Medications Medication Dose Route Frequency perflutren lipid microspheres 1.3 mL in NaCl (PF) 0.9% 10 mL injection (DEFINITY) INTRAVENOUS DIRECTED PRN sodium chloride 0.9 % (flush) 10 mL (BD POSIFLUSH) 10 mL INTRAVENOUS DIRECTED PRN Prior Therapies Duration of Use Dose Reason for Discontinuation Analgesic Diclofenac (Voltaren, Cataflam, Cambia) Hydrocodone/Acetaminophen (Vicodin, [place]) Hydromorphone (Dilaudid) Ketorolac (Toradol) Meloxicam (Mobic) Meperidine (Demerol) Oxycodone/Acetaminophen (Percocet) Tramadol (Ultram) Anti-Anxiety Lorazepam (Ativan) Anti-Convulsant Carbamazepine (Tegretol) Gabapentin (Neurontin) Anti-Depressant and Antipsychotic Duloxetine (Cymbalta) Antiemetics Ondansetron Promethazine Anti-Migraine Sumatriptan (Imitrex, Sumavel) Muscle Relaxer Baclofen (Lioresal) Cyclobenzaprine (Flexeril) Other Medications Dexamethasone (Decadron) Methylprednisolone (Medrol) Prednisone Over the Counter Medications Acetaminophen (Tylenol) Acetaminophen/Aspirin/Caffeine (Excedrin, Goody s) Aspirin Ibuprofen (Advil, Motrin) Naproxen sodium (Aleve) REVIEW OF SYSTEMS: Review of system : unchanged from the previous visit (sleep patterns, mood, energy, appetite, stress, exercising). Physical Examination: BP 116/74 Pulse 80 Wt 49.4 kg (109 lb) LMP 08/08/2022 (Approximate) BMI 19.31 kg/m GEN: Alert. NAD. Normal affect. Cooperative. NEUROLOGICAL: Alert and oriented. Attentive. Thought process and content unremarkable. Follows commands appropriately. Speech fluent. Stable primary gait. Mercedes aTo DO [facility] [place] [facility] [address] [place] [address] Level of service: Est level 3 (20-29 min). Time spent 26 min on the day of service, which included preparing to see the patient, [id number] patient care, completing clinical documentation, obtaining and/or reviewing separately obtained history, counseling and educating the patient/family/caregiver, and ordering medications, tests, or procedures. Medical Decision Making: Medical Decision Making Level: 1 - N/A cc: Dell Pickard [facility] [place] [address] documented in this encounter [facility] 06-26-2023 Miscellaneous Notes Patient contacted the [place] office to schedule follow up appointment with Dr. Tao. She also requests a refill of Tramadol. Last office visit: 10/21/2022 Follow up: 07/04/2023 Patient phoned to request the following prescription(s) Requested Prescriptions Pending Prescriptions Disp Refills traMADol (ULTRAM) 50 mg tablet 30 tablet 1 Sig: Take 1 tablet by mouth every 6 hours as needed for pain. Patient aware RX will be sent to pharmacy. No need to notify patient unless Rx request is denied. Please review. Nakia Paz, RN documented in this encounter [facility] 06-15-2023 Miscellaneous Notes [employer] message sent to patient Per Dr. Ritter I reviewed her ultrasound. She does not have reflux in her veins. I would recommend ultrasound guided sclerotherapy to treat any tender veins. Cecilia was unable to be seen today after her vascular testing. She would like to be called with results. Please review and advise. IGOR Miller documented in this encounter [facility] 06-13-2023 History of Present illness Narrative Appointment cancelled. Called with results documented in this encounter [facility] 01-24-2023 Miscellaneous Notes Physician: Tao Call from patient requesting refill. Please E-Scribe Last office visit 10/21/22 with Tao in person Next office visit Not scheduled. Requested Prescriptions Pending Prescriptions Disp Refills traMADol (ULTRAM) 50 mg tablet 30 tablet 5 Sig: Take 1 tablet by mouth every 6 hours as needed for pain. Pharmacy Name: [facility] documented in this encounter [facility] 01-03-2023 Instructions Tawanda Henry MD - 01/03/2023 11:29 AM EDT We discussed trigeminal neuralgia. We discussed all surgical options including microvascular decompression, radiosurgery radiofrequency rhizotomy, and balloon compression. Of these, microvascular decompression via retrosigmoid craniectomy would be recommended given the classical nature of the pain and visualized arterial loop touching the trigeminal nerve on imaging. The risks and benefits of a retrosigmoid craniectomy were discussed in detail including but not limited to: bleeding, infection, nerve injury causing facial numbness, lack of corneal sensation, lack of benefit from surgery, brain damage, cerebrospinal fluid leak, stroke, permanent neurological deficit, hearing loss, facial weakness/paralysis, paralysis, and even . In addition, it was discussed that this may be one of several procedures required to treat the problem. We discussed that this is certainly an option for treatment but not at all required. You have my card and should you wish to proceed you will let me know. Thank you for allowing me to participate in your care. Please do not hesitate to call with questions. documented in this encounter [facility] 01-03-2023 History of Present illness Narrative Images from the original note were not included. SECTION OF SKULL BASE SURGERY MINIMALLY INVASIVE CRANIAL BASE & PITUITARY SURGERY PROGRAM [facility] [place], [facility] CC: Patient Care Team: Dell Pickard DO as PCP - General (Family Medicine) Mercedes Tao DO ASSESSMENT: In summary, Cecilia Patel is a very pleasant 52 year old adult with right trigeminal neuralgia. Overall, her pain is moderately controlled at the moment but she does have significant breakthrough pain episodes although at the moment she is doing better with an increased gabapentin dose. We discussed all surgical options including microvascular decompression, radiosurgery radiofrequency rhizotomy, and balloon compression. Of these, microvascular decompression via retrosigmoid craniectomy would be recommended given the classical nature of the pain and visualized arterial loop touching the trigeminal nerve on imaging. The risks and benefits of a retrosigmoid craniectomy were discussed in detail including but not limited to: bleeding, infection, nerve injury causing facial numbness, lack of corneal sensation, lack of benefit from surgery, brain damage, cerebrospinal fluid leak, stroke, permanent neurological deficit, hearing loss, facial weakness/paralysis, paralysis, and even . In addition, it was discussed that this may be one of several procedures required to treat the problem. PLAN: We discussed that this is certainly an option for treatment but not at all required. She has my card and should she wish to proceed with surgery, she will let me know. OR Notes: (if needed)- 4hr block, Position - supine/bump, Operating microscope vs exoscope, IOM - need team for CN 7/8 monitoring, Endoscope available, Anticipated postop level of care - RNF, LOS - 1-2 days I have reviewed the history obtained and documented by the nurse who scribed on my behalf. I examined the patient and evaluated all available films and pertinent documents. This note accurately reflects work and decisions made by me. I spent approximately 50 minutes of total time for evaluation and management services provided on the date of the encounter which included preparing to see the patient, [id number] patient care, completing clinical documentation, performing a medically appropriate examination, counseling and educating the patient/family/caregiver, communicating with other HCPs, independently interpreting results and care coordination. Tawanda Henry MD The patient is referred by Dr. Tao for neurosurgical evaluation. Final recommendations will be communicated back to the requesting physician by way of the shared medical records, or letters to requesting physician via US Mail. Chief Complaint: Right Trigeminal Neuralgia History of Present Illness: Patient is accompanied by her sister Radu . Overall much better than even last week. 2 weeks ago could not even talk. Did go up on the gabapentin around 3 weeks ago. Currently 900mg tid. Been taking balcofen more regularly in the past 1.5 weeks. Currently has burning when speaking. 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 Mercedes Tao Clinic Visit) FACIAL PAIN FEATURES: Onset: About 6 years. Has had periods of remission at times. Has been consistent again since late February 2022. Side: R Distribution: V2-3 Any pain on side or back of head: No Character: Burning, pulsating. Has had electrical sharp pains too. Duration: 45-60 seconds Frequency: On and off through the day, depends on triggers. Pain-free between episodes: Most of the time there can be some lower level discomfort. Triggers: Talking, chewing, stress, touching area Sensory abnormalities: Sometimes some tingling Tried Tegretol/Trileptal (initial response): Other medications tried: See prior med list below Prior procedures/outcome: History of MS, Lyme's disease, facial rash: No History of dental/oral surgery, facial/plastic surgery: Possible wisdom tooth taken out about 9 years ago on R side. Autonomic features: No Past Medical History: PAST MEDICAL HISTORY Diagnosis Date Allergic rhinitis Heart murmur Migraine headache only have had 1-2 in her life per pt Osteopenia of spine 12/2021 PONV (postoperative nausea and vomiting) Trigeminal neuralgia of right side of face 10/2015 Past Surgical History: PAST SURGICAL HISTORY Procedure Laterality Date BREAST AUGMENTATION W/PROSTHETIC IMPLANT 1995 CORRECTION OF BUNION Right LIG/TRNSXJ FLP TUBE ABDL/VAG APPR UNI/BI Tubal ligation PAST SURGICAL HISTORY OF 2005, [address] [place] [address] (first emergency) Family History: FAMILY HISTORY Problem Relation Age of Onset Coronary Artery Disease Father age 50 Lipids Sister Lipids Paternal Aunt Hypertension Mother Osteoporosis Maternal Grandmother Osteoporosis Maternal Aunt Social History: Social History Tobacco Use Smoking status: Never Smokeless tobacco: Never Vaping Use Vaping Use: Never used Substance Use Topics Alcohol use: Yes Comment: occassional Drug use: No Medications: Current Outpatient Medications Medication Sig gabapentin (NEURONTIN) 600 mg tablet Take 1.5 tablets by mouth three times daily. baclofen (LIORESAL) 10 mg tablet Take 1 tablet by mouth three times daily as needed (facial pain). traMADol (ULTRAM) 50 mg tablet Take 1 tablet by mouth every 6 hours as needed for pain. LORazepam (ATIVAN) 0.5 mg Take 0.25 mg by mouth. ascorbic acid, vitamin C, (VITAMIN C) 250 mg tablet Take 1 tablet by mouth once daily. Lactobac 40-Bifido 3-S.thermop (PROBIOTIC) 100 billion cell cap Patient takes 50 billion cell capsule daily Cholecalciferol, Vitamin D3, (VITAMIN D-3) 50 mcg (2,000 unit) cap Take 1 capsule by mouth once daily. Biotin 10,000 mcg cap Take 1 capsule by mouth once daily. Zinc Sulfate 25 mg zinc (110 mg) tab Patient takes 22.5 mg daily Herbal Drugs tab Magnesium 50 mg daily No current facility-administered medications for this visit. Allergies: ALLERGIES Allergen Reactions Cats Intolerance Seasonal Allergies Intolerance Physical Examination: BP 129/85 Pulse 62 Temp 36.8 C (98.3 F) (Oral) Resp 18 Ht 160.5 cm (5' 3.19) Wt 49.5 kg (109 lb 3.2 oz) LMP 08/08/2022 (Approximate) SpO2 100% BMI 19.23 kg/m Well developed, well nourished Awake, alert, conversant Speech: Normal fluency and comprehension 23rd, 4th, and 6th cranial nerves: Pupils equally round and reactive to light, extraocular movements intact without nystagmus or subjective diplopia 5th cranial nerve: Right V2/V3 75% to LT, other areas normal 7th cranial nerve: Facial muscles full and symmetric bilaterally 8th cranial nerve: hearing finger rub b/l but much less on right, previously was told she lost hearing on the right due to virus 9th cranial nerve: gag reflex test deferred 10th cranial nerve: Palate elevates symmetrically and uvula in the midline 11th cranial nerve: shoulder shrug 5/5 bilaterally 12th cranial nerve: tongue protrudes in the midline Motors: Normal muscle tone, 5/5 strength throughout without pronator drift Sensation: Intact to light touch in all extremities Coordination: no dysmetria on fingers-nose testing bilaterally Gait: able to stand and ambulate independently with normal gait Data Review: 10/05/2022 MRI/MRA Brain IMPRESSION: No acute intracranial findings or abnormal enhancement. Age-appropriate brain. No mass or abnormal enhancement along bilateral trigeminal nerves. There is a vessel in close proximity to the superior margin of the right cisternal trigeminal nerve without definite contact. No mass effect on the nerve. Unremarkable intracranial MRA. documented in this encounter [facility] 01-03-2023 Nurse Note Additional intake questions: Has the patient had fever, nausea, vomiting, diarrhea, constipation, fatigue for > 1 week? Yes, fatigue and Provider Notified Does the patient have a decreased appetite? No Does patient want to see a Technical Specialist Cytogenetics? No (yes to any of above refer patient to schedulers for dietitian appointment) ) Does patient have any new or increased numbness or tingling of extremities? No Is patient interested in fertility information? No Does patient need any prescription refills? No Does patient have an advanced directive in place? No, Patient referred to Resource Center documented in this encounter [facility] 07-28-2022 History of Present illness Narrative Radiology Service Progress Note PATIENT NAME: Cecilia Patel DATE OF SERVICE: July 28, 2022 TIME: 9:30 AM PATIENT IDENTITY VERIFICATION COMPLETED USING TWO (2) IDENTIFIERS: Name and Date of confirmed by patient verbally. FALL SCREENING: Has the patient had 2 falls in the last year or 1 fall with injury or currently using an Ambulatory Assistive Device (Walker, Cane, Wheelchair, Crutches, etc.)? No PATIENT GENDER DATA: Female. status: : No status: NO. PATIENT RELEVANT IMPLANT DATA REVIEWED: Not Applicable RADIOLOGY DEPARTMENT: General X-ray: Exam(s) Completed: Lower Extremity X-Ray(s): Foot, Right and Wt. Bearing PERIPHERAL IV DATA: Not applicable SIGNED BY: RT Benito(R) July 28, 2022 9:30 AM documented in this encounter [facility] 10-27-2021 Evaluation + Plan note Diagnostic Tests PendingHPV Screen, DNA Probe 10/27/21 Future Scheduled TestsThyroid Stimulating Hormone 10/27/21Glucose Level 10/27/21Lipid Profile 10/27/21MA Mammo Screening Bilateral w/ Manolo 10/27/21 [facility] 10-27-2021 Evaluation + Plan note Future Scheduled TestsMA Mammo Screening Bilateral w/ Manolo 10/27/21 [facility] 05-07-2021 Note HNO ID: [id number] Author: Víctor Sifuentes APRN.UROLOGIC SURGEON Service: Anesthesiology Author Type: Nurse Capsule Maker Type: Anesthesia Procedure Notes Filed: 05/07/2021 7:58 AM Note Text: ANESTHESIOLOGY PROCEDURE NOTE Airway General Information Procedure Start Time/Medication Administration: 05/07/2021 7:47 AM Patient location during procedure: OR 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[employer] UROLOGIC SURGEON: Víctor Sifuentes APRN.CRNA Indications and Patient Condition Preoxygenated: yes Manual In-Line Stabilization: No Difficult Mask: No Indications for airway management: anesthesia anesthesia circuit Method: sleep Cricoid Pressure: No Final Airway Details Final airway type: supraglottic airway Number of attempts at approach: 1 Final Supraglottic Airway: i-gel Size 4 Seal Adequate: yes Failed airway: no Unrecognized esophageal intubation: no Airway not difficult SIGNATURE: Víctor Sifuentes APRN.CRNA PATIENT NAME: Cecilia Patel DATE: May 07, 2021 TIME: 7:58 AM CSN: [id number] [facility] 05-07-2021 Note HNO ID: [id number] Author: Cornelia Ahumada DPM Service: Podiatry Author Type: Resident Type: Progress Notes Filed: 05/07/2021 7:15 AM Note Text: Attestation signed by Bradley Blank at 05/07/2021 7:24 AM Agree with resident note and plan Bradley Blank DPM PODIATRIC PRE-OPERATIVE NOTE SERVICE DATE: 05/07/2021 SERVICE TIME: 7:14 AM DIAGNOSIS: Hallux abducto valgus deformity, right foot PROCEDURE(S): Bunionectomy, right foot Consent on chart: Yes LABS: CBC: WBC 5.90 10/09/2013 Hemoglobin 13.7 10/09/2013 Hematocrit 40.8 10/09/2013 Platelet Count 282 10/09/2013 CMP: Sodium 141 10/09/2013 Potassium 4.1 10/09/2013 BUN 14 10/09/2013 Creatinine 0.70 10/09/2013 Glucose 88 04/26/2016 COAGS: No results found for this basename: aptt,inr URINALYSIS: Ketones, Urine n/a 09/15/2015 Nitrites pos 09/15/2015 Specific Aldrich, Ur 1.010 09/15/2015 Protein, Urine n/a 09/15/2015 Leukest Negative 02/15/2012 WBC, Urine large 09/15/2015 Type AND screen: No Medical Clearance: Yes CXR/EKG: No Medications/Preop Antibiotics: Ancef ALLERGIES Allergen Reactions - Cats Intolerance - Seasonal Allergies Intolerance Surgical site identified: Yes NPO: Yes IV Fluids: Yes Risks and benefits, complications, treatment options, expected outcome and rehabilitation explained, patient understands. All questions were entertained and answered. Patient wishes to proceed with above procedure(s). SIGNATURE: Cornelia Ahumada DPM PATIENT NAME: Cecilia Patel DATE: May 07, 2021 TIME: 7:14 AM PAGER: [facility] Evaluation + Plan note Future Appointments Appointment Date:06/23/2025 09:30:00 AM Scheduled Provider:MALIK SEO MD Location:[facility] Appointment Type:[facility] Evaluation note Diagnosis Trigeminal neuralgia of right side of face- Primary [facility] Diagnosis Trigeminal neuralgia of right side of face [facility] Diagnosis Trigeminal neuralgia of right side of face [facility] Diagnosis Varicose veins with pain- Primary Varicose veins of lower extremities with other complications [facility] Diagnosis Varicose veins with pain- Primary Varicose veins of lower extremities with other complications [facility] Diagnosis Trigeminal neuralgia of right side of face- Primary [facility] Diagnosis Trigeminal neuralgia of right side of face [facility] Diagnosis Encounter for screening [facility] for [facility] Trigeminal neuralgia of right side of face [facility] Trigeminal neuralgia of right side of face [facility] Diagnosis Varicose veins with pain- Primary Varicose veins of lower extremities with other complications [facility] Trigeminal neuralgia of right side of face [facility] Diagnosis Trigeminal neuralgia of right side of face- Primary Trigeminal nerve disorder Trigeminal nerve disorder, unspecified [facility] Diagnosis Varicose veins with pain- Primary Varicose veins of lower extremities with other complications [facility] Diagnosis Disorder of bone and cartilage Disorder of bone and cartilage, unspecified Osteopenia of spine [facility] Diagnosis Well adult exam- Primary Routine general medical examination at a [facility] care facility Trigeminal neuralgia of right side of face Osteopenia of spine Vitamin B12 deficiency Other B-complex deficiencies Iron deficiency anemia, unspecified iron deficiency anemia type IFG (impaired fasting glucose) Impaired fasting glucose Dyslipidemia Other and unspecified hyperlipidemia Mitral valve insufficiency, acquired Mitral valve disorders Snoring Other dyspnea and respiratory abnormality Fatigue, unspecified type [facility] Diagnosis Preop examination- Primary Preoperative examination, unspecified Acquired hallux valgus of right foot Hallux valgus (acquired) Mitral valve insufficiency, unspecified etiology Trigeminal nerve disorder- Primary Trigeminal nerve disorder, unspecified Trigeminal neuralgia of right side of face [facility] Diagnosis Preop examination- Primary Preoperative examination, unspecified Acquired hallux valgus of right foot Hallux valgus (acquired) Mitral valve insufficiency, unspecified etiology Trigeminal neuralgia Trigeminal neuralgia of right side of face [facility] Diagnosis Preop examination- Primary Preoperative examination, unspecified Acquired hallux valgus of right foot Hallux valgus (acquired) Mitral valve insufficiency, unspecified etiology Painful orthopaedic hardware (HCC) Other complications due to other internal orthopedic device, implant, and graft Acquired hallux limitus of right foot [facility] Preop examination- Primary Preoperative examination, unspecified Acquired hallux valgus of right foot Hallux valgus (acquired) Mitral valve insufficiency, unspecified etiology Trigeminal neuralgia of right side of face- Primary Trigeminal nerve disorder Trigeminal nerve disorder, unspecified [facility] Diagnosis Preop examination- Primary Preoperative examination, unspecified Acquired hallux valgus of right foot Hallux valgus (acquired) Mitral valve insufficiency, unspecified etiology Trigeminal neuralgia Trigeminal neuralgia of right side of face [facility] Diagnosis Preop examination- Primary Preoperative examination, unspecified Acquired hallux valgus of right foot Hallux valgus (acquired) Mitral valve insufficiency, unspecified etiology Encounter for screening mammogram for breast cancer [facility] Diagnosis Preop examination- Primary Preoperative examination, unspecified Acquired hallux valgus of right foot Hallux valgus (acquired) Mitral valve insufficiency, unspecified etiology Trigeminal neuralgia Trigeminal neuralgia of right side of face [facility] Diagnosis Preop examination- Primary Preoperative examination, unspecified Acquired hallux valgus of right foot Hallux valgus (acquired) Mitral valve insufficiency, unspecified etiology Trigeminal neuralgia Trigeminal neuralgia of right side of face [facility] Diagnosis Preop examination- Primary Preoperative examination, unspecified Acquired hallux valgus of right foot Hallux valgus (acquired) Mitral valve insufficiency, unspecified etiology Hernia- Primary Hernia of unspecified site of abdominal cavity without mention of obstruction or gangrene Trigeminal neuralgia Trigeminal neuralgia of right side of face Menopausal and postmenopausal disorder Unspecified menopausal and postmenopausal disorder [facility] Diagnosis Preop examination- Primary Preoperative examination, unspecified Acquired hallux valgus of right foot Hallux valgus (acquired) Mitral valve insufficiency, unspecified etiology Trigeminal neuralgia- Primary [facility] Diagnosis Preop examination- Primary Preoperative examination, unspecified Acquired hallux valgus of right foot Hallux valgus (acquired) Mitral valve insufficiency, unspecified etiology Trigeminal neuralgia of right side of face- Primary Chronic pain syndrome [facility] [facility] Diagnosis Preop examination- Primary Preoperative examination, unspecified Acquired hallux valgus of right foot Hallux valgus (acquired) Mitral valve insufficiency, unspecified etiology Trigeminal neuralgia of right side of face Chronic pain syndrome documented in this encounter [facility] note* Diagnosis Preop examination- Primary Preoperative examination, unspecified Acquired hallux valgus of right foot Hallux valgus (acquired) Mitral valve insufficiency, unspecified etiology Trigeminal neuralgia of right side of face Chronic pain syndrome documented in this encounter [facility] note* Diagnosis Preop examination- Primary Preoperative examination, unspecified Acquired hallux valgus of right foot Hallux valgus (acquired) Mitral valve insufficiency, unspecified etiology Right inguinal hernia- Primary Inguinal hernia without mention of obstruction or gangrene, unilateral or unspecified, (not specified as recurrent) Hernia Hernia of unspecified site of abdominal cavity without mention of obstruction or gangrene documented in this encounter [facility] note* Diagnosis Preop examination- Primary Preoperative examination, unspecified Acquired hallux valgus of right foot Hallux valgus (acquired) Mitral valve insufficiency, unspecified etiology Trigeminal neuralgia of right side of face Chronic pain syndrome documented in this encounter [facility] note* Diagnosis Preop examination- Primary Preoperative examination, unspecified Acquired hallux valgus of right foot Hallux valgus (acquired) Mitral valve insufficiency, unspecified etiology Trigeminal neuralgia of right side of face- Primary Trigeminal nerve disorder Trigeminal nerve disorder, unspecified documented in this encounter [facility] course Narrative No data available for this section [facility] Discharge instructions No data available for this section [facility] note No data available for this section [facility] Reason for referral (narrative)* Diagnostic Procedure Only (Routine) - Pending Review Specialty Diagnoses / Procedures Referred By Epifanio milton Referred To Contact BR IMAGING Diagnoses Encounter for screening mammogram for breast cancer Procedures RHEA SCREENING SCREENING MAMMOGRAPHY BI 2-VIEW BREAST INC CAD Dell Pickard L, DO [address] [place] [address] [facility] [address] [place] [address] Referral ID Status Reason Start Date Expiration Date Visits Requested Visits Authorized [id number] Pending Review Auto-Generat ed Referral 10/18/2023 11/16/2024 1 1 [facility] for referral (narrative)* Diagnostic Procedure Only (Routine) - Closed Specialty Diagnoses / Procedures Referred By Contac t Referred To Contact XR IMAGING Diagnoses Painful orthopaedic hardware (HCC) Acquired hallux limitus of right foot Procedures XR FOOT GENERAL 3V AP/LAT/OBL RIGHT RADEX FOOT COMPLETE MINIMUM 3 VIEWS Bradley Blank [address] [place] [address] [place] [address] Referral ID Status Reason Start Date Expiration Date V isits Requested Visits Authorized [id number] Closed Auto-Generate d Referral 07/28/2022 08/27/2023 1 1 [facility] for visit Narrative* Diagnostic Procedure Only (Routine) - Closed Specialty Diagnoses / Procedures Referred By Contac t Referred To Contact XR IMAGING Diagnoses Painful orthopaedic hardware (HCC) Acquired hallux limitus of right foot Procedures XR FOOT GENERAL 3V AP/LAT/OBL RIGHT RADEX FOOT COMPLETE MINIMUM 3 VIEWS Bradley Blank [address] [place] [address] [place] [address] Referral ID Status Reason Start Date Expiration Date V isits Requested Visits Authorized [id number] Closed Auto-Generate d Referral 07/28/2022 08/27/2023 1 1 [facility] Summary Purpose Family History No Family History Records FoundNo Family History Records FoundNo Family History Records Found No data available for this section No Family History Records Found Advance Directives No Advanced Directives Records FoundNo Advanced Directives Records FoundNo Advanced Directives Records FoundNo Advanced Directives Records Found Additional Source Comments INFORMATION SOURCE (unrecogn ized section and content) DATE CREATED AUTHOR 05/08/2021 [facility] DATE CREATED AUTHOR AUTHOR'S ORGANIZ ATION 11/30/2021 [facility] ([place]) DATE CREATED AUTHOR AUTHOR'S ORGANIZ ATION 04/19/2025 [facility] DATE CREATED AUTHOR AUTHOR'S ORGANIZ ATION 05/09/2025 [facility] Care Team (unrecognized sect ion and content) Packing Machine Pilot Can Router Relationship Specialty Start Date End Date Dell Pickard, DO [address] [facility] [address] PCP - General Family Medicine 11/27/13 Packing Machine Pilot Can Router Relationship Specialty Start Date End Date Dell Pickard DO [address] [facility] [address] PCP - General Family Medicine 11/27/13 Packing Machine Pilot Can Router Relationship Specialty Start Date End Date Dell Pickard, DO [address] [facility] [address] PCP - General Family Medicine 11/27/13 Packing Machine Pilot Can Router Relationship Specialty Start Date End Date Dell Pickard DO [address] [facility] [address] PCP - General Family Medicine 11/27/13 Packing Machine Pilot Can Router Relationship Specialty Start Date End Date Dell Pickard DO [address] [facility] [place] [address] PCP - General Family Medicine 11/27/13 Packing Machine Pilot Can Router Relationship Specialty Start Date End Date Dell Pickard DO [address] [facility] [place] [address] PCP - General Family Medicine 11/27/13 Packing Machine Pilot Can Router Relationship Specialty Start Date End Date Dell Pickard DO [address] [facility] [place] [address] PCP - General Family Medicine 11/27/13 Packing Machine Pilot Can Router Relationship Specialty Start Date End Date Dell Pickard DO [address] [facility] [place] [address] PCP - General Family Medicine 11/27/13 Packing Machine Pilot Can Router Relationship Specialty Start Date End Date Dell Pickard, DO [address] [facility] [address] PCP - General Family Medicine 11/27/13 Packing Machine Pilot Can Router Relationship Specialty Start Date End Date Dell Pcikard, DO [address] [place] [address] PCP - General Family Medicine 11/27/13 Packing Machine Pilot Can Router Relationship Specialty Start Date End Date Dell Pickard, DO [address] [place] [address] PCP - General Family Medicine 11/27/13 Packing Machine Pilot Can Router Relationship Specialty Start Date End Date Dell Pickard DO [address] [place] [address] PCP - General Family Medicine 11/27/13 Packing Machine Pilot Can Router Relationship Specialty Start Date End Date Dell Pickard DO [address] [place] [address] PCP - General Family Medicine 11/27/13 Packing Machine Pilot Can Router Relationship Specialty Start Date End Date Dell Pickard, [address] [place] [address] PCP - General Family Medicine 11/27/13 Packing Machine Pilot Can Router Relationship Specialty Start Date End Date Dell Pickard DO [address] [place] [address] PCP - General Family Medicine 11/27/13 Packing Machine Pilot Can Router Relationship Specialty Start Date End Date Dell Pickard, DO [address] [place] [address] PCP - General Family Medicine 11/27/13 Packing Machine Pilot Can Router Relationship Specialty Start Date End Date Dell Pickard, DO [address] [facility] [address] PCP - General Family Medicine 11/27/13 Packing Machine Pilot Can Router Relationship Specialty Start Date End Date Dell Pickard DO [address] [place] [address] PCP - General Family Medicine 11/27/13 Packing Machine Pilot Can Router Relationship Specialty Start Date End Date Dell Pickard DO [address] [facility] [place] [address] PCP - General Family Medicine 11/27/13 Packing Machine Pilot Can Router Relationship Specialty Start Date End Date Dell Pickard, [address] [place] [address] PCP - General Family Medicine 11/27/13 Marcela Arevalo, BIOMETRICS SPECIALIST.AUTHORIZATION REP [address] [facility] [place] [address] Legger Press Operator Family Medicine 08/04/24 Ai Schmitz, BIOMETRICS SPECIALIST.AUTHORIZATION REP [address] [facility] [address] Legger Press Operator Family Medicine 08/04/24 Packing Machine Pilot Can Router Relationship Specialty Start Date End Date Dell Pickard DO [address] [place] [address] PCP - General Family Medicine 11/27/13 Marcela Arevalo, BIOMETRICS SPECIALIST.AUTHORIZATION REP [address] [facility] [address] Legger Press Operator Family [facility] 08/04/24 [facility] Ai, BIOMETRICS SPECIALIST.AUTHORIZATION REP [address] [place] [address] [facility]ly [facility] 08/04/24 Packing Machine Pilot Can Router Relationship Specialty Start Date End Date Dell Pickard DO [address] [place] [address] PCP - General Family Medicine 11/27/13 Marcela Arevalo, BIOMETRICS SPECIALIST.AUTHORIZATION REP [address] [place] [address] [facility]ly [facility] 08/04/24 [facility] Ai, BIOMETRICS SPECIALIST.AUTHORIZATION REP [address] [place] [address] [facility]ly [facility] 08/04/24 Packing Machine Pilot Can Router Relationship Specialty Start Date End Date Dell Pickard DO [address] [place] [address] PCP - General Family Medicine 11/27/13 Marcela Arevalo, BIOMETRICS SPECIALIST.AUTHORIZATION REP [address] [place] [address] [facility] 08/04/24 [facility] Dol[facility]i, BIOMETRICS SPECIALIST.AUTHORIZATION REP [address] [place] [address] [facility] 08/04/24 Packing Machine Pilot Can Router Relationship Specialty Start Date End Date Dell Pickard DO [address] [place] [address] PCP - General Family Medicine 11/27/13 Marcela Arevalo, BIOMETRICS SPECIALIST.AUTHORIZATION REP [address] [place] [address] Legger Press Operator Family [facility] 08/04/24 AinsleyAi, BIOMETRICS SPECIALIST.AUTHORIZATION REP [address] [place] [address] Legger Press Operator Family [facility] 08/04/24 Packing Machine Pilot Can Router Relationship Specialty Start Date End Date Dell Pickard DO [address] [place] [address] PCP - General Family Medicine 11/27/13 AinsleyAi, BIOMETRICS SPECIALIST.AUTHORIZATION REP [address] [place] [address] [facility] 08/[facility]24 Packing Machine Pilot Can Router Relationship Specialty Start Date End Date Dell Pickard DO [address] [place] [address] PCP - General Family Medicine 11/27/13 Ai Schmitz, BIOMETRICS SPECIALIST.AUTHORIZATION REP [address] [place] [address] [facility] 08/04/24 Packing Machine Pilot Can Router Relationship Specialty Start Date End Date Dell Pickard DO [address] [place] [address] PCP - General Family Medicine 11/27/13 Ai Schmitz, BIOMETRICS SPECIALIST.AUTHORIZATION REP [address] [place] [address] [facility] 08/04/24 Packing Machine Pilot Can Router Relationship Specialty Start Date End Date Dell Pickard DO [address] [facility] [place] [address] PCP - General Family Medicine 11/27/13 AinsleyAi, BIOMETRICS SPECIALIST.AUTHORIZATION REP [address] [place] [address] Legger Press Operator Family Medicine 08/04/24 Packing Machine Pilot Can Router Relationship Specialty Start Date End Date Dell Pickard DO [address] [place] [address] PCP - General Family Medicine 11/27/13 Ai Schmitz, BIOMETRICS SPECIALIST.AUTHORIZATION REP [address] [place] [address] Legger Press Operator Family [facility] 08/04/24 Packing Machine Pilot Can Router Relationship Specialty Start Date End Date Dell Pickard DO [address] [place] [address] PCP - General Family Medicine 11/27/13 Ai Schmitz, BIOMETRICS SPECIALIST.AUTHORIZATION REP [address] [place] [address] Legger Press Operator Family [facility] 08/04/24 Packing Machine Pilot Can Router Relationship Specialty Start Date End Date Dell Pickard DO [address] [place] [address] PCP - General Family Medicine 11/27/13 Ai Schmitz, BIOMETRICS SPECIALIST.AUTHORIZATION REP [address] [place] [address] Legger Press Operator Family [facility] 08/04/24 Gissell Fontenot, BIOMETRICS SPECIALIST.AUTHORIZATION REP [address] [place] [address] [facility] 02/10/25 Packing Machine Pilot Can Router Relationship Specialty Start Date End Date Dell Pickard DO [address] [place] [address] PCP - General Family Medicine 11/27/13 Ai Schmitz, BIOMETRICS SPECIALIST.AUTHORIZATION REP [address] [place] [address] [facility] 08/04/24 Gissell Fontenot, BIOMETRICS SPECIALIST.AUTHORIZATION REP [address] [place] [address] Formerly [facility] 02/10/25 Packing Machine Pilot Can Router Relationship Specialty Start Date End Date Dell Pickard DO [address] [place] [address] PCP - General Family Medicine 11/27/13 Ai Schmitz, BIOMETRICS SPECIALIST.AUTHORIZATION REP [address] [place] [address] [facility] 08/04/24 Gissell Fontenot, BIOMETRICS SPECIALIST.AUTHORIZATION REP [address] [place] [address] [facility] 02/10/25 Source Comments (unrecognize d section and content) In the event this informatio n is protected by the Federal Confidentiality of Alcohol and Drug Abuse Patient Records regulations: The Federal rules restrict any use of the information to criminally investigate or prosecute any alcohol or drug abuse patient.[facility] the event this information is protected by the Federal Confidentiality of Alcohol and Drug Abuse Patient Records regulations: The Federal rules restrict any use of the information to criminally investigate or prosecute any alcohol or drug abuse patient.[facility] HospitalIn the event this information is protected by the Federal Confidentiality of Alcohol and Drug Abuse Patient Records regulations: The Federal rules restrict any use of the information to criminally investigate or prosecute any alcohol or drug abuse patient.[facility] HospitalIn the event this information is protected by the Federal Confidentiality of Alcohol and Drug Abuse Patient Records regulations: The Federal rules restrict any use of the information to criminally investigate or prosecute any alcohol or drug abuse patient.[facility] HospitalIn the event this information is protected by the Federal Confidentiality of Alcohol and Drug Abuse Patient Records regulations: The Federal rules restrict any use of the information to criminally investigate or prosecute any alcohol or drug abuse patient.[facility] HospitalIn the event this information is protected by the Federal Confidentiality of Alcohol and Drug Abuse Patient Records regulations: The Federal rules restrict any use of the information to criminally investigate or prosecute any alcohol or drug abuse patient.[facility] HospitalIn the event this information is protected by the Federal Confidentiality of Alcohol and Drug Abuse Patient Records regulations: The Federal rules restrict any use of the information to criminally investigate or prosecute any alcohol or drug abuse patient.[facility] HospitalIn the event this information is protected by the Federal Confidentiality of Alcohol and Drug Abuse Patient Records regulations: The Federal rules restrict any use of the information to criminally investigate or prosecute any alcohol or drug abuse patient.[facility] HospitalIn the event this information is protected by the Federal Confidentiality of Alcohol and Drug Abuse Patient Records regulations: The Federal rules restrict any use of the information to criminally investigate or prosecute any alcohol or drug abuse patient.[facility] HospitalIn the event this information is protected by the Federal Confidentiality of Alcohol and Drug Abuse Patient Records regulations: The Federal rules restrict any use of the information to criminally investigate or prosecute any alcohol or drug abuse patient.[facility] HospitalIn the event this information is protected by the Federal Confidentiality of Alcohol and Drug Abuse Patient Records regulations: The Federal rules restrict any use of the information to criminally investigate or prosecute any alcohol or drug abuse patient.[facility] HospitalIn the event this information is protected by the Federal Confidentiality of Alcohol and Drug Abuse Patient Records regulations: The Federal rules restrict any use of the information to criminally investigate or prosecute any alcohol or drug abuse patient.[facility] HospitalIn the event this information is protected by the Federal Confidentiality of Alcohol and Drug Abuse Patient Records regulations: The Federal rules restrict any use of the information to criminally investigate or prosecute any alcohol or drug abuse patient.[facility] HospitalIn the event this information is protected by the Federal Confidentiality of Alcohol and Drug Abuse Patient Records regulations: The Federal rules restrict any use of the information to criminally investigate or prosecute any alcohol or drug abuse patient.[facility] HospitalIn the event this information is protected by the Federal Confidentiality of Alcohol and Drug Abuse Patient Records regulations: The Federal rules restrict any use of the information to criminally investigate or prosecute any alcohol or drug abuse patient.[facility] HospitalIn the event this information is protected by the Federal Confidentiality of Alcohol and Drug Abuse Patient Records regulations: The Federal rules restrict any use of the information to criminally investigate or prosecute any alcohol or drug abuse patient.[facility] HospitalIn the event this information is protected by the Federal Confidentiality of Alcohol and Drug Abuse Patient Records regulations: The Federal rules restrict any use of the information to criminally investigate or prosecute any alcohol or drug abuse patient.[facility] HospitalIn the event this information is protected by the Federal Confidentiality of Alcohol and Drug Abuse Patient Records regulations: The Federal rules restrict any use of the information to criminally investigate or prosecute any alcohol or drug abuse patient.[facility] HospitalIn the event this information is protected by the Federal Confidentiality of Alcohol and Drug Abuse Patient Records regulations: The Federal rules restrict any use of the information to criminally investigate or prosecute any alcohol or drug abuse patient.[facility] HospitalIn the event this information is protected by the Federal Confidentiality of Alcohol and Drug Abuse Patient Records regulations: The Federal rules restrict any use of the information to criminally investigate or prosecute any alcohol or drug abuse patient.[facility] HospitalIn the event this information is protected by the Federal Confidentiality of Alcohol and Drug Abuse Patient Records regulations: The Federal rules restrict any use of the information to criminally investigate or prosecute any alcohol or drug abuse patient.[facility] HospitalIn the event this information is protected by the Federal Confidentiality of Alcohol and Drug Abuse Patient Records regulations: The Federal rules restrict any use of the information to criminally investigate or prosecute any alcohol or drug abuse patient.[facility] HospitalIn the event this information is protected by the Federal Confidentiality of Alcohol and Drug Abuse Patient Records regulations: The Federal rules restrict any use of the information to criminally investigate or prosecute any alcohol or drug abuse patient.[facility] HospitalIn the event this information is protected by the Federal Confidentiality of Alcohol and Drug Abuse Patient Records regulations: The Federal rules restrict any use of the information to criminally investigate or prosecute any alcohol or drug abuse patient.[facility] HospitalIn the event this information is protected by the Federal Confidentiality of Alcohol and Drug Abuse Patient Records regulations: The Federal rules restrict any use of the information to criminally investigate or prosecute any alcohol or drug abuse patient.[facility] HospitalIn the event this information is protected by the Federal Confidentiality of Alcohol and Drug Abuse Patient Records regulations: The Federal rules restrict any use of the information to criminally investigate or prosecute any alcohol or drug abuse patient.[facility] HospitalIn the event this information is protected by the Federal Confidentiality of Alcohol and Drug Abuse Patient Records regulations: The Federal rules restrict any use of the information to criminally investigate or prosecute any alcohol or drug abuse patient.[facility] HospitalIn the event this information is protected by the Federal Confidentiality of Alcohol and Drug Abuse Patient Records regulations: The Federal rules restrict any use of the information to criminally investigate or prosecute any alcohol or drug abuse patient.[facility] HospitalIn the event this information is protected by the Federal Confidentiality of Alcohol and Drug Abuse Patient Records regulations: The Federal rules restrict any use of the information to criminally investigate or prosecute any alcohol or drug abuse patient.[facility] HospitalIn the event this information is protected by the Federal Confidentiality of Alcohol and Drug Abuse Patient Records regulations: The Federal rules restrict any use of the information to criminally investigate or prosecute any alcohol or drug abuse patient.[facility] HospitalIn the event this information is protected by the Federal Confidentiality of Alcohol and Drug Abuse Patient Records regulations: The Federal rules restrict any use of the information to criminally investigate or prosecute any alcohol or drug abuse patient.[facility] HospitalIn the event this information is protected by the Federal Confidentiality of Alcohol and Drug Abuse Patient Records regulations: The Federal rules restrict any use of the information to criminally investigate or prosecute any alcohol or drug abuse patient.[facility] HospitalIn the event this information is protected by the Federal Confidentiality of Alcohol and Drug Abuse Patient Records regulations: The Federal rules restrict any use of the information to criminally investigate or prosecute any alcohol or drug abuse patient.[facility] HospitalIn the event this information is protected by the Federal Confidentiality of Alcohol and Drug Abuse Patient Records regulations: The Federal rules restrict any use of the information to criminally investigate or prosecute any alcohol or drug abuse patient.[facility] HospitalIn the event this information is protected by the Federal Confidentiality of Alcohol and Drug Abuse Patient Records regulations: The Federal rules restrict any use of the information to criminally investigate or prosecute any alcohol or drug abuse patient.[facility] HospitalIn the event this information is protected by the Federal Confidentiality of Alcohol and Drug Abuse Patient Records regulations: The Federal rules restrict any use of the information to criminally investigate or prosecute any alcohol or drug abuse patient.[facility] the event this information is protected by the Federal Confidentiality of Alcohol and Drug Abuse Patient Records regulations: The Federal rules restrict any use of the information to criminally investigate or prosecute any alcohol or drug abuse patient.[facility] HospitalIn the event this information is protected by the Federal Confidentiality of Alcohol and Drug Abuse Patient Records regulations: The Federal rules restrict any use of the information to criminally investigate or prosecute any alcohol or drug abuse patient.[facility] HospitalIn the event this information is protected by the Federal Confidentiality of Alcohol and Drug Abuse Patient Records regulations: The Federal rules restrict any use of the information to criminally investigate or prosecute any alcohol or drug abuse patient.[facility] HospitalIn the event this information is protected by the Federal Confidentiality of Alcohol and Drug Abuse Patient Records regulations: The Federal rules restrict any use of the information to criminally investigate or prosecute any alcohol or drug abuse patient.[facility] HospitalIn the event this information is protected by the Federal Confidentiality of Alcohol and Drug Abuse Patient Records regulations: The Federal rules restrict any use of the information to criminally investigate or prosecute any alcohol or drug abuse patient.[facility] HospitalIn the event this information is protected by the Federal Confidentiality of Alcohol and Drug Abuse Patient Records regulations: The Federal rules restrict any use of the information to criminally investigate or prosecute any alcohol or drug abuse patient.[facility] HospitalIn the event this information is protected by the Federal Confidentiality of Alcohol and Drug Abuse Patient Records regulations: The Federal rules restrict any use of the information to criminally investigate or prosecute any alcohol or drug abuse patient.[facility] HospitalIn the event this information is protected by the Federal Confidentiality of Alcohol and Drug Abuse Patient Records regulations: The Federal rules restrict any use of the information to criminally investigate or prosecute any alcohol or drug abuse patient.[facility] HospitalIn the event this information is protected by the Federal Confidentiality of Alcohol and Drug Abuse Patient Records regulations: The Federal rules restrict any use of the information to criminally investigate or prosecute any alcohol or drug abuse patient.[facility] HospitalIn the event this information is protected by the Federal Confidentiality of Alcohol and Drug Abuse Patient Records regulations: The Federal rules restrict any use of the information to criminally investigate or prosecute any alcohol or drug abuse patient.[facility] HospitalIn the event this information is protected by the Federal Confidentiality of Alcohol and Drug Abuse Patient Records regulations: The Federal rules restrict any use of the information to criminally investigate or prosecute any alcohol or drug abuse patient.[facility] HospitalIn the event this information is protected by the Federal Confidentiality of Alcohol and Drug Abuse Patient Records regulations: The Federal rules restrict any use of the information to criminally investigate or prosecute any alcohol or drug abuse patient.[facility] Reason for Visit (unrecogniz ed section and content) Reason Comments Consult Specialty Diagnoses / Procedures Referred By Epifanio milton Referred To Contact General Surgery Diagnoses Hernia Procedures CONSULT TO GENERAL SURGERY OFFICE/OUTPATIENT [facility] 60 MINUTES Gissell Fontenot APRN.[facility] [address] [place] [address] Phone: tel: fax: Referral ID Status Reason Start Date Expiration Date V isits Requested Visits Authorized [id number] Closed PCP Requested Referral 01/15/2025 01/08/2026 1 1 Reason Onset Date Comments Refill Request 01/24/2023 Reason Comments Results Reason Comments Refill Request Appointment Reason Comments Established Patient Reason Comments Follow Up Trigeminal neuralgia Reason Onset Date Comments Refill Request 08/01/2023 Reason Comments Insurance Authorization PA Delayed - Add itional Information Needed Reason Comments Scheduling Reason Onset Date Comments Refill Request 11/29/2023 Reason Onset Date Comments Refill Request 12/08/2023 Reason Comments Sclerotherapy Tx US guided sclero Specialty Diagnoses / Procedures Referred By Epifanio milton Referred To Contact Peripheral Vascular / VASCULAR SURGERY Diagnoses Varicose veins of unspecified lower extremity with pain SCLERO PENDING INSURANCE AUTH [id number] Procedures INJECTION SCLEROSANT MULTIPLE INCMPTNT VEINS SCLEROTHERAPY Chasity Ritter, DO [address] [address] Chasity Ritter, DO [address] [place] [address] Referral ID Status Reason Start Date Expiration Date Visits Re quested Visits Authorized [id number] Closed 11/27/2023 02/25/2024 1 1 Reason Onset Date Comments Refill Request 12/27/2023 Reason Comments Botox Injection Specialty Diagnoses / Procedures Referred By Epifanio t Referred To Contact HEADACHE Diagnoses Trigeminal neuralgia Botox 100 units every 90 days for 1 year through [facility] buy and bill [id number] Procedure -45872 chemodervate facial/trigem/cerv musc migraine Procedures BOTULINUM TOXIN A PER 1 UNIT CHEMODERVATE FACIAL/TRIGEM/CERV MUSC MIGRAINE Mercedes Tao, DO [address] [place] [address] Neur Headache Main [address] [place] [address] Referral ID Status Reason Start Date Expiration Date V isits Requested Visits Authorized [id number] Authorized 08/02/2023 02/01/2024 4 4 Reason Comments Sclerotherapy Tx Specialty Diagnoses / Procedures Referred By Epifanio t Referred To Contact Peripheral Vascular / VASCULAR SURGERY Diagnoses Varicose veins of bilateral lower extremities with pain SCLERO Procedures INJECTION SCLEROSANT MULTIPLE INCMPTNT VEINS SCLEROTHERAPY Chasity Ritter, DO [address] [address] Chasity Ritter, DO [address] [place] [address] Referral ID Status Reason Start Date Expiration Date V isits Requested Visits Authorized [id number] Authorized 01/26/2024 04/27/2024 2 2 Reason Comments Yearly Exam Reason Comments Insurance Authorization PA delayed-Addit ional information needed Specialty Diagnoses / Procedures Referred By Epifanio t Referred To Contact HEADACHE Diagnoses Trigeminal neuralgia Procedures BOTULINUM TOXIN A PER 1 UNIT CHEMODERVATE FACIAL/TRIGEM/CERV MUSC MIGRAINE Botox 200 units every 90 days for 1 year through [facility] buy and bill Preempt protocol [id number] Procedure -23835 chemodervate facial/trigem/cerv musc migraine The only time the dose changes is for [employer] 155 units Mercedes Tao, DO [address] [place] [address] Neur Headache Main [address] [place] [address] Referral ID Status Reason Start Date Expiration Date Visits Re quested Visits Authorized [id number] Closed 02/02/2024 02/01/2025 5 5 Specialty Diagnoses / Procedures Referred By Contac t Referred To Contact HEADACHE Diagnoses Trigeminal neuralgia Botox 200 units every 90 days for 1 year through [facility] [employer] and bill Preempt protocol [id number] Procedure -32854 chemodervate facial/trigem/cerv musc migraine Procedures BOTULINUM TOXIN A PER 1 UNIT CHEMODERVATE FACIAL/TRIGEM/CERV MUSC MIGRAINE Mercedes Tao, DO [address] [place] [address] Neur Headache Main [address] [place] [id number] Referral ID Status Reason Start Date Expiration Date V isits Requested Visits Authorized [id number] Authorized 06/29/2024 06/29/2025 5 5 Reason Onset Date Comments Refill Request 10/10/2024 Reason Onset Date Comments Refill Request 10/24/2024 Specialty Diagnoses / Procedures Referred By Contac t Referred To Contact HEADACHE Diagnoses Trigeminal neuralgia Botox 200 units every 90 days for 1 year through [facility] [employer] and bill Preempt protocol [id number] Procedure -25213 chemodervate facial/trigem/cerv musc migraine Procedures BOTULINUM TOXIN A PER 1 UNIT CHEMODERVATE FACIAL/TRIGEM/CERV MUSC MIGRAINE Mercedes Tao, DO [address] [place] [address] Phone: tel: fax: Neurology [address] [place] [address] Phone: tel: fax: Reason Onset Date Comments Refill Request 11/25/2024 Reason Onset Date Comments Refill Request 12/27/2024 Reason Comments Acute Visit Possible hernia- lum p lower right abdomen, night sweats ; trigeminal neuralgia regimen/refills Reason Onset Date Comments Refill Request 01/29/2025 Reason Onset Date Comments Refill Request 01/30/2025 FOR RECORDS PERTAINING TO PATIENTS WHO ARE OR HAVE BEEN ENROLLED IN A CHEMICAL DEPENDENCY/SUBSTANCEABUSE PROGRAM, SOME INFORMATION MAY BE OMITTED. This clinical summary was aggregated from multiple sources. Caution should be exercised in using it in the provision of clinical care. This summary normalizes information from multiple sources, and as a consequence, information in this document may materially change the coding, format and clinical context of patient data. In addition, data may be omitted in some cases. CLINICAL DECISIONS SHOULD BE BASED ON THE PRIMARY CLINICAL RECORDS. [facility], [facility]. provides no warranty or guarantee of the accuracy or completeness of information in this document.
--- NOTE | 2025-06-22 10:15 | RAD_ITS ---
PROCEDURE: CHEST PA AND LATERAL 06/22/2025 REASON FOR EXAM: COUGH X 7 WEEKS TECHNIQUE: Procedure Code: RADCXR Modality: DX Procedure: CHEST PA AND LATERAL COMPARISON: None FINDINGS: Hardware and support lines: None. Heart: Negative. Lungs: Negative for infiltrates, or pulmonary edema. Pleura: No pleural thickening. No pleural effusion. Mediastinum and aorta: Negative for hilar adenopathy. Normal aorta Bones: Normal. Other: Remainder of the exam negative. RAD/Chest PA and Lateral IMPRESSION: Negative chest Reading Location: [id number]
[2025-06-22 10:21] LABS: Hematocrit 38.9 % (37-47); Hemoglobin 13.4 g/dL (12.0-15.0); Immature Granulocytes Count 0.050 X10^3/uL (0.0-0.0); Mean Corp Hgb Conc 34.4 g/dL (32-36); Mean Corpuscular Volume 86.1 fL (81-99); Mean Platelet Vol. 9.2 fl (6.2-12.0); NRBC Flagged by Analyzer 0 % (0-5); Platelet Count 288 K/mm3 (150-450); RBC Distribution Width CV 12.3 % (11.6-14.6); RBC Distribution Width SD 38.6 fl (35.1-43.9); Red Blood Count 4.52 M/mm3 (4.2-5.4); White Blood Count 14.6 K/mm3 (4.4-11.0)
[2025-06-22 10:30] VITALS: BP 120/80; PULSE 70; RESP 16; O2SAT 99
[2025-06-22 10:48] LABS: Troponin T High Sensitivity < 6 ng/L (<=14)
[2025-06-22 10:57] LABS: Anion Gap 12 (5-15); BUN 10 mg/dL (4-19); BUN/Creat Ratio 15.4 RATIO (10-20); Calcium,Total 9.4 mg/dL (7.6-11.0); Carbon Dioxide 23.8 mmol/L (21.0-32.0); Chloride 97 mmol/L (98-108); Estimated Creatinine Clearance 80.76 ml/min (50-250); Glucose 101 mg/dL (70-99); Potassium 3.9 mmol/L (3.3-5.1)
[2025-06-22 11:00] VITALS: BP 118/70; PULSE 68; RESP 18; O2SAT 99
[2025-06-22 12:00] VITALS: BP 120/78; PULSE 80; RESP 18; O2SAT 98
[2025-06-22 12:46] LABS: Troponin T High Sens 2 HR < 6 ng/L (<=14)
[2025-06-22 13:00] VITALS: BP 116/76; PULSE 90; RESP 16; O2SAT 100
[2025-06-22 13:18] VITALS: BP 116/76; PULSE 90; RESP 16; TEMP 36.8; O2SAT 100
== END 2025-06-22 13:18 | disposition home or self-care (01) ==
PROVIDERS: Emergency Provider Emergency Medicine; PCP Student in an Organized Health Care Education/Training Program; Visit Provider Emergency Medicine
DX: R00.2 Palpitations (principal); R00.0 Tachycardia, unspecified
CPT/HCPCS: 71046; 80048; 84443; 84484; 85025; 93005; 99283; A4216